=== PATIENT | male | born 1965 | race Caucasian/White ===

== ENCOUNTER → 2016-08-22 | Outpatient (CLI) | payer OTHER ==
[~2016-08-22] MED LIST: ACET500C OR; AMIT10TA2 OR; ATEN50TA2 OR; DICL100T6 PO; FLEXERIL; FLEXERIL OR; HYDR-3713 PO; HYDR-3716 PO; HYDR-3719 PO; HYDR10TA16 PO; HYDR12.56 PO; IBUP200C PO; IBUP600T26 PO; KENOLOG; LOVA20TA2 PO; LYRI150C; LYRI150C OR; LYRI200C; LYRI200C OR; METH75TA PO; MULTCAP PO; NEXI20CA OR; NEXI40CA PO; OMEG100011 PO; PERC5TAB8 PO; PERC7.5T12 PO; PRED5TAB; PRED5TAB OR; PRED5TAB PO; TOPI25TA2 OR; TRAM100T OR; VICO5TAB; VICO5TAB OR; VICO5TAB PO; VITA100072 PO; VITA100T; VITAD1000T PO; VITATAB11 PO; VOLT1GEL2 TD; [UNRECOGNIZED DRUG - CODE] OR; [UNRECOGNIZED DRUG - OTHER] EXT; [UNRECOGNIZED DRUG - OTHER] PO; crestor PO; mobic; tumeric PO; vitamin d PO
--- NOTE | 2016-09-11 02:09 | ECWPNPC ---
PATIENT NAME: CAMILO WHIPPLE : 1965 GENDER: MALE VISIT DATE: 08/22/2016 DISCHARGE DATE: 08/22/16 1052 VISIT LOCKED DATE TIME: PHYSICIAN: SUNDAR BURKS RESOURCE: SUNDAR BURKS REASON FOR APPOINTMENT 1. WC NECK, SHOULDER, BACK HISTORY OF PRESENT ILLNESS HISTORY OF PRESENT ILLNESS: PAIN THE PATIENT DESCRIBES THE PAIN... FALL RISK SCREENING: SCREENING :NO FALLS IN THE PAST YEAR TODAY'S VISIT: NOTES: WC FOLLOWUP VISIT FOR THORACIC , NECK, LEG. RATES PAIN TODAY 8/10. HAS BEEN HAVING INCREASED LEFT THOACIC AND RIB PRESSURE FOR 2 WEEKS. IS NOW HAVING PAIN ACROSS TO THE LEFT SIDE. THERE WERE NO INSTIGATING FACTORS EXCEPT WITH TWISTING TO COMPLETE BATHROOM ACTIVITIES. . CURRENT MEDICATIONS TAKING ATENOLOL 50 MG TABLET 1 TABLET ORALLY BID TAKING TURMERIC 1 CAPSULE 1 CAP ORALLY DAILY TAKING LYRICA 100 MG CAPSULE 1 CAPSULE ORALLY TWICE A DAY MDD=2 TAKING DICLOFENAC SODIUM 75 MG TABLET DELAYED RELEASE 1 TABLET WITH FOOD OR MILK ORALLY TWICE A DAY TAKING BIOFREEZE 0.2-3.5 % GEL EXTERNALLY TAKING AMITRIPTYLINE HCL 10 MG TABLET 2 TABLET AT BEDTIME ORALLY BEFORE BEDTIME TAKING OXYCODONE HCL 5 MG TABLET 1 TABLET ORALLY EVERY 8 HRS PRN PAIN MDD=3 WORKERS COMP TAKING VITAMIN B COMPLEX 1 TABLET 1 TAB(S) ORALLY DAILY TAKING VITAMIN D 1000 UNIT TABLET 1 TABLET ORALLY ONCE A DAY NOT-TAKING DICLOFENAC SODIUM ER 75 MG TABLET EXTENDED RELEASE 24 HOUR 1 TABLET ORALLY BID WITH FOOD WORKERS COMP NOT-TAKING LOVASTATIN 20 MG TABLET 1 TABLET WITH A MEAL ORALLY ONCE A DAY MEDICATION LIST REVIEWED AND RECONCILED WITH THE PATIENT PAST MEDICAL HISTORY HTN HIGH CHOLESTEROL (BORDELINE) GERD POSSIBLE SLEEP APNEA ALLERGIES BACLOFEN: RASH, WHEEZING: ALLERGY BEE VENOM: ANAPHYLAXIS: ALLERGY PENICILLIN (FOR ALLERGIES USE ONLY): ANAPHYLAXIS: ALLERGY HYDROCHLOROTHIAZIDE: MIGRAINE: ALLERGY TYLENOL: DYSPNEA, SWELLING: ALLERGY SOCIAL HISTORY GENERAL: TOBACCO USE ARE YOU A:NONSMOKER 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 NEW PATIENT PAIN DIARY TODAY'S VISITNOTES FROM 0-10, WHAT LEVEL IS YOUR PAIN TODAY?0 PAIN CLINIC PFS, CLERGY, PUBLIC HEALTH REFERRALS PFS REFERRAL NEEDED?NO CLERGY REFERRAL NEEDED?NO PUBLIC HEALTH REFERRAL NEEDED?NO WAS THE PROVIDER NOTIFIED OF ANY PERTINENT INFO?NO PFS REFERRAL NEEDED?NO CLERGY REFERRAL NEEDED?NO PUBLIC HEALTH REFERRAL NEEDED?NO WAS THE PROVIDER NOTIFIED OF ANY PERTINENT INFO?NO REVIEW OF SYSTEMS CONSTITUTIONAL: ANY CHANGE IN YOUR MEDICAL CONDITION? NO . CHILLS NO . FEVER NO . INFECTION: DO YOU HAVE NEW INFECTIONS? NO . DO YOU HAVE HISTORY OF MRSA? NO . MUSCULOSKELETAL: ANY NEW PATTERNS OF PAIN OR NUMBNESS? YES PT NOTES NEW RIGHT POSTERIOR RIB DISCOMFORT X 2 WKS. ALSO NOTES &QUOT;MUSCLES ALONG MY SPINE FEEL WEAK LIKE THEY ARE WORKING HARDER TO SUPPORT MY BACK&QUOT;. . GASTROENTEROLOGY: ANY NEW CHANGE IN BOWEL CONTROL? NO . GENITOURINARY: ANY NEW CHANGE IN BLADDER CONTROL? NO . IS THERE A CHANCE YOU COULD BE ? NO . HEMATOLOGY/LYMPH: DO YOU TAKE ANY BLOOD THINNERS? (FOR EXAMPLE- COUMADIN, PLAVIX, AGGRENOX, PLATEL, PRADAXA, OR XARELTO) NO . WHEN WAS YOUR LAST DOSE? DATE: TIME: . NEUROLOGY: HAVE YOU FALLEN IN THE PAST 6 MONTHS? NO . ANY NEW EXTREMITY NUMBNESS OR WEAKNESS? NO . CARDIOLOGY: DO YOU HAVE A PACEMAKER OR DEFIBRILLATOR? NO . RESPIRATORY: HAVE YOU BEEN SICK IN THE PAST WEEK? NO . FEVER NO . FLU LIKE SYMPTOMS? NO . COUGH NO . INTEGUMENTARY: DO YOU HAVE ANY RASHES OR OPEN SORES? NO . ALLERGIC/IMMUNO: ARE YOU ALLERGIC TO SHELLFISH OR IV DYE? NO . ANY NEW ALLERGIES? NO . PSYCHIATRIC: DO YOU HAVE THOUGHTS OF HURTING YOURSELF OR SOMEONE ELSE? NO . ARE YOU ABUSED, NEGLECTED, OR IN AN UNSAFE ENVIRONMENT? NO . ENDOCRINOLOGY: ARE YOU DIABETIC? NO . OTHER: DO YOU NEED ANY PRESCRIPTIONS? YES OXYCODONE/DICLOFENAC . IF YES, PLEASE LIST: ____ . ANY NEW PROBLEMS WITH YOUR MEDICATIONS? NO . WHEN DID YOU LAST EAT? ____ . WHEN DID YOU LAST DRINK? ____ . WHAT DID YOU LAST DRINK? ____ . NAME OF PERSON DRIVING YOU HOME? ____ . DO YOU HAVE ANY OTHER QUESTIONS OR CONCERNS NO . REVIEWED BY: PROVIDER: SUNDAR HERZOGP . VITAL SIGNS WT 340 LBS, HT 68 IN, BMI 51.69 INDEX, BP 139/87 MM HG, HR 67 /MIN, RR 18 /MIN, TEMP 96.5 F, OXYGEN SAT % 96%, NA INITIALS SC 09:42, REVIEWED BY: MLF. EXAMINATION GENERAL EXAMINATION: PSYCHALERT , ORIENTED X 3 , APPROPRIATE MOOD AND AFFECT . LUNGS:CLEAR TO AUSCULTATION BILATERALLY, NO WHEEZES, RALES OR RHONCHI. HEART:HEART RATE REGULAR. MUSCULOSKELETAL: POINT TENDERNESS OVER ACROMIOCLAVICULAR AND STERNOCLAVICULAR JOINTS. TRIGGER POINTS:, ELICITED WITH PALPATION OVER CERVICAL SPINOUS PROCESSES AND ACROSS THE TRAPEZIUS MUSCLES BILATERALLY. RESTRICTION OF ROM IS NOTED. LEFT TRAPEZIUS > RIGHT. TIGHTNESS IN LEFT CALF AND BOTH CALVES TENDER TO PALPATION.TENDERNESS WITH PALPATION OVER LUMBAR SPINOUS PROCESSES AND AT LEFT SACRALILIAC JOINT. 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 CONTINUE CURRRENT MEDS ,TRIGGER POINT INJECTION: YOUR EXPERIENCE MATERIAL WAS PRINTED. PROCEDURES PN WORKMANS' COMP OPINION IN YOUR OPINION, WAS THE INCIDENT THAT THE PATIENT DESCRIBED THE COMPETENT MEDICAL CAUSE OF THIS INJURY/ILLNESS? YES ARE THE PATIENT'S COMPLAINTS CONSISTENT WITH HIS/HER HISTORY OF THE INJURY/ILLNESS? YES IS THE PATIENT'S HISTORY OF THE INJURY/ILLNESS CONSISTENT WITH YOUR OBJECTIVE FINDING? YES WHAT IS THE PERCENTAGE OF TEMPORARY IMPAIRMENT? MARKED = 75% IS THE PATIENT WORKING? NO DOCTOR ON SITE: NATHAN EASLEY MD PROCEDURE CODES FA211 ESTABILISHED PATIENT [facility] FACILITY CHARGE DISPOSITION & COMMUNICATION FOLLOW UP 6 WEEKS MED MANAGEMENT WC (REASON: WC AUTH FOR THORACIC TPI LEFT) ELECTRONICALLY SIGNED BY TAMMI SCHOFIELD ON 09/10/2016 AT 11:48 AM EST DISCLAIMER : THIS IS A VISIT SUMMARY EXTRACTED FROM THE [employer] CHART. IT IS NOT A COPY OF THE [employer] PROGRESS NOTE. MTDD
== END ==
LOC: M PAIN 09:40
PROVIDERS: ATTEND Nurse Practitioner Family
DX: G54.0 Brachial plexus disorders (principal); M79.1 Myalgia; Z79.891 Long term (current) use of opiate analgesic; Z79.899 Other long term (current) drug therapy; I10 Essential (primary) hypertension; Z88.0 Allergy status to penicillin; Z88.1 Allergy status to other antibiotic agents; Z88.8 Allergy status to other drugs, medicaments and biological substances; Z88.6 Allergy status to analgesic agent

== ENCOUNTER → 2016-10-10 | Outpatient (CLI) | payer OTHER ==
--- NOTE | 2016-10-21 02:15 | ECWPNPC ---
PATIENT NAME: CAMILO WHIPPLE : 1965 GENDER: MALE VISIT DATE: 10/10/2016 DISCHARGE DATE: 10/10/16 0936 VISIT LOCKED DATE TIME: PHYSICIAN: SUNDAR BURKS RESOURCE: SUNDAR BURKS REASON FOR APPOINTMENT 1. W/C BACK HISTORY OF PRESENT ILLNESS HISTORY OF PRESENT ILLNESS: PAIN THE PATIENT DESCRIBES THE PAIN... FALL RISK SCREENING: SCREENING :NO FALLS IN THE PAST YEAR TODAY'S VISIT: NOTES: WC FOLLOWUP FOR THORACIC AND LOW BACK PAIN. RATES PAIN TODAY 7/10. DESCRIBES PAIN CONSTANT, ACHINGTENDER, SORE AND SENSE OF PRRESSURE UNDER LEFT RIBS. PAIN TODAY IS CENTERD IN BACK. PAIN HAS BEEN AWAKENING AT NIGHT - SLEEP DISRUPTED SECONDARY TO THORACIC PRESSURE AND LOW BACK PAIN. STATES MEDS ARE HELPFUL BUT HAS BEEN TRYING TO TAKE LESS OF THE PERCOCET.. CURRENT MEDICATIONS TAKING ATENOLOL 50 MG TABLET 1 TABLET ORALLY BID TAKING TURMERIC 1 CAPSULE 1 CAP ORALLY DAILY TAKING LYRICA 100 MG CAPSULE 1 CAPSULE ORALLY TWICE A DAY MDD=2 TAKING BIOFREEZE 0.2-3.5 % GEL EXTERNALLY TAKING AMITRIPTYLINE HCL 10 MG TABLET 2 TABLET AT BEDTIME ORALLY BEFORE BEDTIME TAKING VITAMIN B COMPLEX 1 TABLET 1 TAB(S) ORALLY DAILY TAKING VITAMIN D 1000 UNIT TABLET 1 TABLET ORALLY ONCE A DAY TAKING DICLOFENAC SODIUM 75 MG TABLET DELAYED RELEASE 1 TABLET WITH FOOD OR MILK ORALLY TWICE A DAY TAKING OXYCODONE HCL 5 MG TABLET 1 TABLET ORALLY EVERY 8 HRS PRN PAIN MDD=3 WORKERS COMP NOT-TAKING DICLOFENAC SODIUM ER 75 MG TABLET EXTENDED RELEASE 24 HOUR 1 TABLET ORALLY BID WITH FOOD WORKERS COMP NOT-TAKING LOVASTATIN 20 MG TABLET 1 TABLET WITH A MEAL ORALLY ONCE A DAY MEDICATION LIST REVIEWED AND RECONCILED WITH THE PATIENT PAST MEDICAL HISTORY HTN HIGH CHOLESTEROL (BORDELINE) GERD POSSIBLE SLEEP APNEA ALLERGIES BACLOFEN: RASH, WHEEZING: ALLERGY BEE VENOM: ANAPHYLAXIS: ALLERGY PENICILLIN (FOR ALLERGIES USE ONLY): ANAPHYLAXIS: ALLERGY HYDROCHLOROTHIAZIDE: MIGRAINE: ALLERGY TYLENOL: DYSPNEA, SWELLING: ALLERGY REVIEW OF SYSTEMS CONSTITUTIONAL: ANY CHANGE IN YOUR MEDICAL CONDITION? NO . CHILLS NO . FEVER NO . INFECTION: DO YOU HAVE NEW INFECTIONS? NO . DO YOU HAVE HISTORY OF MRSA? NO . MUSCULOSKELETAL: ANY NEW PATTERNS OF PAIN OR NUMBNESS? NO . GASTROENTEROLOGY: ANY NEW CHANGE IN BOWEL CONTROL? NO . GENITOURINARY: ANY NEW CHANGE IN BLADDER CONTROL? NO . IS THERE A CHANCE YOU COULD BE ? NO . HEMATOLOGY/LYMPH: DO YOU TAKE ANY BLOOD THINNERS? (FOR EXAMPLE- COUMADIN, PLAVIX, AGGRENOX, PLATEL, PRADAXA, OR XARELTO) NO . WHEN WAS YOUR LAST DOSE? DATE: TIME: . NEUROLOGY: HAVE YOU FALLEN IN THE PAST 6 MONTHS? NO . ANY NEW EXTREMITY NUMBNESS OR WEAKNESS? NO . CARDIOLOGY: DO YOU HAVE A PACEMAKER OR DEFIBRILLATOR? NO . RESPIRATORY: HAVE YOU BEEN SICK IN THE PAST WEEK? NO . FEVER NO . FLU LIKE SYMPTOMS? NO . COUGH NO . INTEGUMENTARY: DO YOU HAVE ANY RASHES OR OPEN SORES? NO . ALLERGIC/IMMUNO: ARE YOU ALLERGIC TO SHELLFISH OR IV DYE? NO . ANY NEW ALLERGIES? NO . PSYCHIATRIC: DO YOU HAVE THOUGHTS OF HURTING YOURSELF OR SOMEONE ELSE? NO . ARE YOU ABUSED, NEGLECTED, OR IN AN UNSAFE ENVIRONMENT? NO . ENDOCRINOLOGY: ARE YOU DIABETIC? NO . OTHER: DO YOU NEED ANY PRESCRIPTIONS? NO . IF YES, PLEASE LIST: ____ . ANY NEW PROBLEMS WITH YOUR MEDICATIONS? NO . WHEN DID YOU LAST EAT? ____ . WHEN DID YOU LAST DRINK? ____ . WHAT DID YOU LAST DRINK? ____ . NAME OF PERSON DRIVING YOU HOME? ____ . DO YOU HAVE ANY OTHER QUESTIONS OR CONCERNS NO . REVIEWED BY: PROVIDER: SUNDAR WOMACK . VITAL SIGNS WT 316.8 LBS, HT 68 IN, BMI 48.16 INDEX, BP 133/83 MM HG, HR 81 /MIN, RR 18 /MIN, TEMP 97.9 F, OXYGEN SAT % 96, NA INITIALS TL 0857, REVIEWED BY: KG. EXAMINATION GENERAL EXAMINATION: PSYCHALERT , ORIENTED X 3 , APPROPRIATE MOOD AND AFFECT . LUNGS:CLEAR TO AUSCULTATION BILATERALLY, NO WHEEZES, RALES OR RHONCHI. HEART:HEART RATE REGULAR. MUSCULOSKELETAL:POINT TENDERNESS OVER ACROMIOCLAVICULAR AND STERNOCLAVICULAR JOINTS. TRIGGER POINTS AND TIGHT FIBROUS BANDS NOTED WITH PALPATION OVER CERVICAL SPINOUS PROCESSES AND ACROSS THE TRAPEZIUS MUSCLES BILATERALLY, LEFT GREATER THAN RIGHT. RESTRICTION OF ROM IS NOTED. LEFT TRAPEZIUS > RIGHT. TIGHTNESS IN LEFT CALF AND BOTH CALVES TENDER TO PALPATION. POINT TENDERNESS WITH PALPATION OVER LUMBAR SPINOUS PROCESSES AND AT LEFT SACRALILIAC JOINT. 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 CLINICAL NOTES: ISTOP REGISTRY REVIEWED AND DEMNOSTRATES COMPLLIANCE. BRINGS IN MEDICATIONS WHICH IS APPROPRIATE FOR WHAT WAS DISPENSED. RECENT URINE TOXICOLOGY REVIEWED. NO UNAUTHORIZED MEDICATIONS. NO ILLICIT SUBSTANCES AND PRESCRIBED MEDICATIONS WERE PRESENT. PROCEDURES PN WORKMANS' COMP OPINION IN YOUR OPINION, WAS THE INCIDENT THAT THE PATIENT DESCRIBED THE COMPETENT MEDICAL CAUSE OF THIS INJURY/ILLNESS? YES ARE THE PATIENT'S COMPLAINTS CONSISTENT WITH HIS/HER HISTORY OF THE INJURY/ILLNESS? YES IS THE PATIENT'S HISTORY OF THE INJURY/ILLNESS CONSISTENT WITH YOUR OBJECTIVE FINDING? YES WHAT IS THE PERCENTAGE OF TEMPORARY IMPAIRMENT? MARKED = 75% IS THE PATIENT WORKING? NO DOCTOR ON SITE: NATHAN EASLEY MD PROCEDURE CODES FA211 ESTABILISHED PATIENT [facility] FACILITY CHARGE DISPOSITION & COMMUNICATION FOLLOW UP FOLLOW UP WITH DR ORELLANA 3-4 WEEKS (REASON: WC THORACIC, LOW BACK) ELECTRONICALLY SIGNED BY TAMMI SCHOFIELD ON 10/20/2016 AT 07:16 PM EDT DISCLAIMER : THIS IS A VISIT SUMMARY EXTRACTED FROM THE [employer] CHART. IT IS NOT A COPY OF THE [employer] PROGRESS NOTE. LISA
== END ==
LOC: M PAIN 09:00
PROVIDERS: ATTEND Nurse Practitioner Family
DX: Z09 Encounter for follow-up examination after completed treatment for conditions other than malignant neoplasm (principal); G89.29 Other chronic pain; M54.12 Radiculopathy, cervical region; M79.1 Myalgia; I10 Essential (primary) hypertension; E78.00 Pure hypercholesterolemia, unspecified; K21.9 Gastro-esophageal reflux disease without esophagitis; Z88.1 Allergy status to other antibiotic agents; Z91.030 Bee allergy status; Z88.0 Allergy status to penicillin; Z88.8 Allergy status to other drugs, medicaments and biological substances; Z79.891 Long term (current) use of opiate analgesic; Z79.899 Other long term (current) drug therapy

== ENCOUNTER → 2016-11-13 | Outpatient (CLI) | payer OTHER ==
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
== END ==
LOC: M PAIN 15:00
PROVIDERS: ATTEND Anesthesiology
DX: G89.29 Other chronic pain (principal); M51.16 Intervertebral disc disorders with radiculopathy, lumbar region; M51.17 Intervertebral disc disorders with radiculopathy, lumbosacral region; I10 Essential (primary) hypertension; E78.00 Pure hypercholesterolemia, unspecified; K21.9 Gastro-esophageal reflux disease without esophagitis; G47.30 Sleep apnea, unspecified; Z88.8 Allergy status to other drugs, medicaments and biological substances; Z91.030 Bee allergy status; Z88.0 Allergy status to penicillin; Z79.891 Long term (current) use of opiate analgesic; Z79.899 Other long term (current) drug therapy

== ENCOUNTER → 2016-12-12 | Outpatient (CLI) | payer OTHER ==
--- NOTE | 2016-12-24 02:32 | ECWPNPC ---
PATIENT NAME: CAMILO WHIPPLE : 1965 GENDER: MALE VISIT DATE: 12/12/2016 DISCHARGE DATE: 12/12/16 1423 VISIT LOCKED DATE TIME: PHYSICIAN: NATHAN ORELLANA RESOURCE: NATHAN ORELLANA REASON FOR APPOINTMENT 1. W/C WHOLE BACK HISTORY OF PRESENT ILLNESS HISTORY OF PRESENT ILLNESS: PAIN THE PATIENT DESCRIBES THE PAIN... 50 YEAR OLD MALE PATIENT WITH HISTORY OF CHRONIC NECK, MID-BACK, AND LOW BACK PAIN. PATIENT DESCRIBES THE PAIN ACHING, TENDER, SORE, AND HAVING IT ALL THE TIME WITH A PAIN SCORE OF 6/10 ON TODAY'S VISIT. PATIENT WAS INJURED IN A WORK RELATED INJURY. PATIENT WAS WORKING IN THE [employer] OVER THE COURSE OF MANY YEARS, DUE TO THE TRAUMA ON HE WAS TAKEN OUT OF WORK. PATIENT STATES THAT IN 2001 HE HAD TWO BACK SURGERIES ONE IN JANUARY AND THE OTHER IN JUNE. PATIENT STATES THAT HE HAS TRIED PT IN THE PAST WITH NO IMPROVEMENT. PATIENT STATES THAT HIS LOW BACK HURT THE MOST TODAY. PATIENT STATES THAT HE HAS RADIATING PAIN DOWN THE BACK OF HIS LEFT LEG FROM HIS BACK. PATIENT DENIES UNEXPLAINABLE WEIGHT LOSS, FEVER, CHILLS, NEW CHANGES ON HIS URINARY OR BOWEL CONTROL. FALL RISK SCREENING: SCREENING :NO FALLS IN THE PAST YEAR CURRENT MEDICATIONS TAKING OXYCODONE HCL 5 MG TABLET 1 TABLET ORALLY EVERY 8 HRS PRN PAIN MDD=3 WORKERS COMP TAKING LYRICA 100 MG CAPSULE 1 CAPSULE ORALLY TWICE A DAY MDD=2 TAKING ATENOLOL 50 MG TABLET 1 TABLET ORALLY BID TAKING TURMERIC 1 CAPSULE 1 CAP ORALLY DAILY TAKING BIOFREEZE 0.2-3.5 % GEL EXTERNALLY TAKING AMITRIPTYLINE HCL 10 MG TABLET 2 TABLET AT BEDTIME ORALLY BEFORE BEDTIME TAKING VITAMIN B COMPLEX 1 TABLET 1 TAB(S) ORALLY DAILY TAKING DICLOFENAC SODIUM 75 MG TABLET DELAYED RELEASE 1 TABLET WITH FOOD OR MILK ORALLY TWICE A DAY, NOTES: WEANING HIMSELF OFF TOOK 1 TAB YEST. 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 NEW PATIENT PAIN DIARY TODAY'S VISITNOTES FROM 0-10, WHAT LEVEL IS YOUR PAIN TODAY?0 PAIN CLINIC PFS, CLERGY, PUBLIC HEALTH REFERRALS PFS REFERRAL NEEDED?NO CLERGY REFERRAL NEEDED?NO PUBLIC HEALTH REFERRAL NEEDED?NO WAS THE PROVIDER NOTIFIED OF ANY PERTINENT INFO?NO PFS REFERRAL NEEDED?NO CLERGY REFERRAL NEEDED?NO PUBLIC HEALTH REFERRAL NEEDED?NO WAS THE PROVIDER NOTIFIED OF ANY PERTINENT INFO?NO ADVANCED DIRECTIVES HEALTH CARE PROXY?YES NAME OF HCP ROXANNE WHIPPLE CONTACT # FOR HCP [phone] DO YOU HAVE A COPY WITH YOU? NO DO YOU HAVE A DNR?NO WOULD YOU LIKE MORE INFORMATION?NO LIVING WILL?NO WOULD YOU LIKE MORE INFORMATION?NO POWER OF BUNDLE WRAPPER?NO WOULD YOU LIKE MORE INFORMATION?NO HOSPITALIZATION/MAJOR DIAGNOSTIC PROCEDURE SURGERIES INFECTION 1998 REVIEW OF SYSTEMS CONSTITUTIONAL: ANY CHANGE IN YOUR MEDICAL CONDITION? NO . CHILLS NO . FEVER NO . INFECTION: DO YOU HAVE NEW INFECTIONS? NO . DO YOU HAVE HISTORY OF MRSA? NO . MUSCULOSKELETAL: ANY NEW PATTERNS OF PAIN OR NUMBNESS? NO . GASTROENTEROLOGY: ANY NEW CHANGE IN BOWEL CONTROL? NO . GENITOURINARY: ANY NEW CHANGE IN BLADDER CONTROL? NO . IS THERE A CHANCE YOU COULD BE ? NO . HEMATOLOGY/LYMPH: DO YOU TAKE ANY BLOOD THINNERS? (FOR EXAMPLE- COUMADIN, PLAVIX, AGGRENOX, PLATEL, PRADAXA, OR XARELTO) NO . WHEN WAS YOUR LAST DOSE? DATE: TIME: . NEUROLOGY: HAVE YOU FALLEN IN THE PAST 6 MONTHS? NO . ANY NEW EXTREMITY NUMBNESS OR WEAKNESS? NO . CARDIOLOGY: DO YOU HAVE A PACEMAKER OR DEFIBRILLATOR? NO . RESPIRATORY: HAVE YOU BEEN SICK IN THE PAST WEEK? NO . FEVER NO . FLU LIKE SYMPTOMS? NO . COUGH NO . INTEGUMENTARY: DO YOU HAVE ANY RASHES OR OPEN SORES? NO . ALLERGIC/IMMUNO: ARE YOU ALLERGIC TO SHELLFISH OR IV DYE? NO . ANY NEW ALLERGIES? NO . PSYCHIATRIC: DO YOU HAVE THOUGHTS OF HURTING YOURSELF OR SOMEONE ELSE? NO . ARE YOU ABUSED, NEGLECTED, OR IN AN UNSAFE ENVIRONMENT? NO . ENDOCRINOLOGY: ARE YOU DIABETIC? NO . OTHER: DO YOU NEED ANY PRESCRIPTIONS? YES . IF YES, PLEASE LIST: OXYCOCONE . ANY NEW PROBLEMS WITH YOUR MEDICATIONS? NO . WHEN DID YOU LAST EAT? ____ . WHEN DID YOU LAST DRINK? ____ . WHAT DID YOU LAST DRINK? ____ . NAME OF PERSON DRIVING YOU HOME? ____ . DO YOU HAVE ANY OTHER QUESTIONS OR CONCERNS NO . REVIEWED BY: PROVIDER: NATHAN ORELLANA MD . VITAL SIGNS WT 327 LBS, HT 68 IN, BMI 49.71 INDEX, BP 134/79 MM HG, HR 73 /MIN, RR 18 /MIN, TEMP 98.1 F, OXYGEN SAT % 95%, NA INITIALS SC 13:02, REVIEWED BY: AD. EXAMINATION : PATIENT IS ALERT O X 3 AND COOPERATIVE. THERE IS TENDERNESS IN THE LOW BACK PARASPINAL MUSCLE GROUP. PATIENT AMBULATES WITH A LIMP ON THE LEFT LEG AND HAS AN ANTALGIC GAIT. PATIENT IS ABLE TO FLEX HIS BACK TO 35 DEGREES AND EXTEND TO 5 DEGREES WITH DISCOMFORT. STRAIGHT LEG RAISING IS POSITIVE FOR PAIN ON THE LEFT LEG AT 30 DEGREES. MRI OF THE LUMBAR SPINE DONE ON 09-19-2013 SHOWS BULGING DISC AT MULTIPLE LEVELS. ASSESSMENTS INTERVERTEBRAL DISC DISORDERS WITH RADICULOPATHY, LUMBAR REGION - M51.16 INTERVERTEBRAL DISC DISORDERS WITH RADICULOPATHY, LUMBOSACRAL REGION - M51.17 TREATMENT OTHERS REFILL OXYCODONE HCL TABLET, 5 MG, 1 TABLET, ORALLY, EVERY 8 HRS PRN PAIN MDD=3 WORKERS COMP, 30 DAYS, 90, REFILLS 0 REFILL LYRICA CAPSULE, 100 MG, 1 CAPSULE, ORALLY, TWICE A DAY MDD=2, 30 DAY(S), 60, REFILLS 0 REFILL AMITRIPTYLINE HCL TABLET, 10 MG, 2 TABLET AT BEDTIME, ORALLY, BEFORE BEDTIME, 30 DAY(S), 60, REFILLS 5 NOTES: WE DISCUSSED SEVERAL ISSUES ABOUT MR. WHIPPLE'S PAIN MANAGEMENT CASE. AT THIS TIME I WILL REFILL OXYCODONE AND LYRICA FOR THE PATIENT TODAY. PATIENT IS TAKING OXYCODONE FOR SOMATIC PAIN; AMITRIPTYLINE AND LYRICA FOR NEUROPATHIC PAIN. I DISCUSSED WITH THE PATIENT WE HAVE NOT HEARD BACK YET FROM HIS COMP CARRIER REGARDING ABOUT THE REQUEST FOR CT OF THE CERVICAL AND THORACIC SPINE. AFTER EXAMINING THE PATIENT AND REVIEWING THE MRI OF THE LUMBAR SPINE, PATIENT IS A GOOD CANDIDATE FOR A L5-S1 LUMBAR EPIDURAL, WE DISCUSSED THE RISK, BENEFITS, AND ALTERNATIVES AND THE PATIENT WOULD LIKE TO PROCEED. PATIENT WILL BE BOOKED PENDING APPROVAL. UTOX DONE ON 04/22/2016 SHOWS CONSISTENT RESULTS. I WILL ORDER A UTOX TODAY. PATIENT WILL FOLLOW UP WITH ME IN 7 WEEKS. INSTRUCTIONS WERE GIVEN, QUESTIONS WERE ANSWERED, PATIENT REPORTS UNDERSTANDING AND AGREES WITH THE PLAN. I, TAO LEE, DOCUMENTED THE ABOVE INFORMATION ACTING A SCRIBE FOR DR. ORELLANA. I HAVE REVIEWED THE ABOVE DOCUMENT, WRITTEN BY TAO LEE SCRIBE AND I VERIFY THAT IT IS ACCURATE. PROCEDURES PN WORKMANS' COMP OPINION IN YOUR OPINION, WAS THE INCIDENT THAT THE PATIENT DESCRIBED THE COMPETENT MEDICAL CAUSE OF THIS INJURY/ILLNESS? YES ARE THE PATIENT'S COMPLAINTS CONSISTENT WITH HIS/HER HISTORY OF THE INJURY/ILLNESS? YES IS THE PATIENT'S HISTORY OF THE INJURY/ILLNESS CONSISTENT WITH YOUR OBJECTIVE FINDING? YES WHAT IS THE PERCENTAGE OF TEMPORARY IMPAIRMENT? MARKED = 75% IS THE PATIENT WORKING? NO DOCTOR ON SITE: NATHAN EASLEY MD PROCEDURE CODES FA211 ESTABILISHED PATIENT [facility] FACILITY CHARGE G8730 PAIN ASSESS POS TOOL F/U PLAN DOC G8427 DOC MEDS VERIFIED W/PT OR RE DISPOSITION & COMMUNICATION FOLLOW UP 7 WEEKS ELECTRONICALLY SIGNED BY NATHAN ORELLANA MD ON 12/23/2016 AT 08:15 PM EDT DISCLAIMER : THIS IS A VISIT SUMMARY EXTRACTED FROM THE [employer] CHART. IT IS NOT A COPY OF THE [employer] PROGRESS NOTE. LISA
== END ==
LOC: M PAIN 13:00
PROVIDERS: ATTEND Anesthesiology
DX: G89.29 Other chronic pain (principal); M51.16 Intervertebral disc disorders with radiculopathy, lumbar region; M51.17 Intervertebral disc disorders with radiculopathy, lumbosacral region; I10 Essential (primary) hypertension; E78.00 Pure hypercholesterolemia, unspecified; K21.9 Gastro-esophageal reflux disease without esophagitis; G47.30 Sleep apnea, unspecified; Z91.030 Bee allergy status; Z88.0 Allergy status to penicillin; Z88.8 Allergy status to other drugs, medicaments and biological substances; Z88.6 Allergy status to analgesic agent; Z79.891 Long term (current) use of opiate analgesic; Z79.899 Other long term (current) drug therapy

== ENCOUNTER → 2017-01-28 | Outpatient (CLI) | payer OTHER ==
--- NOTE | 2017-02-10 02:44 | ECWPNPC ---
PATIENT NAME: CAMILO WHIPPLE : 1965 GENDER: MALE VISIT DATE: 01/28/2017 DISCHARGE DATE: 01/28/17 1005 VISIT LOCKED DATE TIME: PHYSICIAN: NATHAN ORELLANA RESOURCE: NATHAN ORELLANA REASON FOR APPOINTMENT 1. W/C WHOLE BACK HISTORY OF PRESENT ILLNESS HISTORY OF PRESENT ILLNESS: PAIN THE PATIENT DESCRIBES THE PAIN... 50 YEAR OLD MALE PATIENT WITH HISTORY OF CHRONIC NECK, MID-BACK, AND LOW BACK PAIN. PATIENT DESCRIBES THE PAIN ACHING, TENDER, SORE, AND HAVING IT ALL THE TIME WITH A PAIN SCORE OF 6/10 ON TODAY'S VISIT. PATIENT WAS INJURED IN A WORK RELATED INJURY. PATIENT WAS WORKING IN THE [employer] OVER THE COURSE OF MANY YEARS, DUE TO THE TRAUMA ON 01/08/2000 HE WAS TAKEN OUT OF WORK. PATIENT STATES THAT IN 2001 HE HAD TWO BACK SURGERIES ONE IN JANUARY AND THE OTHER IN JUNE. PATIENT STATES THAT HE HAS TRIED PHYSICAL THERAPY IN THE PAST WITH NO IMPROVEMENT. PATIENT STATES THAT HIS LOW BACK HURT THE MOST TODAY. PATIENT STATES THAT HE HAS RADIATING PAIN DOWN THE BACK OF HIS LEFT LEG FROM HIS BACK. PATIENT IS CURRENTLY USING LYRICA AND OXYCODONE AND STATES THAT THE MEDICATION KEEPS HIM MOBILE AND FUNCTIONAL. PATIENT DENIES UNEXPLAINABLE WEIGHT LOSS, FEVER, CHILLS, NEW CHANGES ON HIS URINARY OR BOWEL CONTROL. FALL RISK SCREENING: SCREENING :NO FALLS IN THE PAST YEAR CURRENT MEDICATIONS TAKING AMITRIPTYLINE HCL 10 MG TABLET 2 TABLET AT BEDTIME ORALLY BEFORE BEDTIME TAKING ATENOLOL 50 MG TABLET 1 TABLET ORALLY BID TAKING TURMERIC 1 CAPSULE 1 CAP ORALLY DAILY TAKING BIOFREEZE 0.2-3.5 % GEL EXTERNALLY TAKING VITAMIN B COMPLEX 1 TABLET 1 TAB(S) ORALLY DAILY TAKING OXYCODONE HCL 5 MG TABLET 1 TABLET ORALLY EVERY 8 HRS PRN PAIN MDD=3 WORKERS COMP TAKING LYRICA 100 MG CAPSULE 1 CAPSULE ORALLY TWICE A DAY MDD=2 NOT-TAKING VITAMIN D 1000 UNIT TABLET 1 TABLET ORALLY EVERY OTHER DAY, NOTES: ONLY TAKES DURING THE WINTER NOT-TAKING DICLOFENAC SODIUM ER 75 MG TABLET EXTENDED RELEASE 24 HOUR 1 TABLET ORALLY BID WITH FOOD WORKERS COMP NOT-TAKING LOVASTATIN 20 MG TABLET 1 TABLET WITH A MEAL ORALLY ONCE A DAY DISCONTINUED DICLOFENAC SODIUM 75 MG TABLET DELAYED RELEASE 1 TABLET WITH FOOD OR MILK ORALLY TWICE A DAY, NOTES: . 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 SOCIAL HISTORY GENERAL: TOBACCO USE ARE YOU A:NONSMOKER ALCOHOL SCREENING DID YOU HAVE A DRINK CONTAINING ALCOHOL IN THE PAST YEAR?NO POINTS0 INTERPRETATIONNEGATIVE MUSLIM [id number] 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 NEW PATIENT PAIN DIARY TODAY'S VISITNOTES FROM 0-10, WHAT LEVEL IS YOUR PAIN TODAY?0 PAIN CLINIC PFS, CLERGY, PUBLIC HEALTH REFERRALS PFS REFERRAL NEEDED?NO CLERGY REFERRAL NEEDED?NO PUBLIC HEALTH REFERRAL NEEDED?NO WAS THE PROVIDER NOTIFIED OF ANY PERTINENT INFO?NO PFS REFERRAL NEEDED?NO CLERGY REFERRAL NEEDED?NO PUBLIC HEALTH REFERRAL NEEDED?NO WAS THE PROVIDER NOTIFIED OF ANY PERTINENT INFO?NO ADVANCE DIRECTIVES HEALTH CARE PROXY?YES NAME OF HCP ROXANNE WHIPPLE CONTACT # FOR HCP [phone] DO YOU HAVE A COPY WITH YOU? NO DO YOU HAVE A DNR?NO WOULD YOU LIKE MORE INFORMATION?NO LIVING WILL?NO WOULD YOU LIKE MORE INFORMATION?NO POWER OF CARDIOPULMONARY TECHNICIAN AND EEG TECH?NO WOULD YOU LIKE MORE INFORMATION?NO HOSPITALIZATION/MAJOR DIAGNOSTIC PROCEDURE SURGERIES INFECTION 1997 REVIEW OF SYSTEMS REVIEWED BY: PROVIDER: NATHAN ORELLANA MD . CONSTITUTIONAL: ANY CHANGE IN YOUR MEDICAL CONDITION? NO . CHILLS NO . FEVER NO . INFECTION: DO YOU HAVE NEW INFECTIONS? NO . DO YOU HAVE HISTORY OF MRSA? NO . MUSCULOSKELETAL: ANY NEW PATTERNS OF PAIN OR NUMBNESS? NO . GASTROENTEROLOGY: ANY NEW CHANGE IN BOWEL CONTROL? NO . GENITOURINARY: ANY NEW CHANGE IN BLADDER CONTROL? NO . IS THERE A CHANCE YOU COULD BE ? NO . HEMATOLOGY/LYMPH: DO YOU TAKE ANY BLOOD THINNERS? (FOR EXAMPLE- COUMADIN, PLAVIX, AGGRENOX, PLATEL, PRADAXA, OR XARELTO) NO . WHEN WAS YOUR LAST DOSE? DATE: TIME: . NEUROLOGY: HAVE YOU FALLEN IN THE PAST 6 MONTHS? NO . ANY NEW EXTREMITY NUMBNESS OR WEAKNESS? NO . CARDIOLOGY: DO YOU HAVE A PACEMAKER OR DEFIBRILLATOR? NO . RESPIRATORY: HAVE YOU BEEN SICK IN THE PAST WEEK? NO . FEVER NO . FLU LIKE SYMPTOMS? NO . COUGH NO . INTEGUMENTARY: DO YOU HAVE ANY RASHES OR OPEN SORES? NO . ALLERGIC/IMMUNO: ARE YOU ALLERGIC TO SHELLFISH OR IV DYE? NO . ANY NEW ALLERGIES? NO . PSYCHIATRIC: DO YOU HAVE THOUGHTS OF HURTING YOURSELF OR SOMEONE ELSE? NO . ARE YOU ABUSED, NEGLECTED, OR IN AN UNSAFE ENVIRONMENT? NO . ENDOCRINOLOGY: ARE YOU DIABETIC? NO . OTHER: DO YOU NEED ANY PRESCRIPTIONS? NO . IF YES, PLEASE LIST: ____ . ANY NEW PROBLEMS WITH YOUR MEDICATIONS? NO . WHEN DID YOU LAST EAT? ____ . WHEN DID YOU LAST DRINK? ____ . WHAT DID YOU LAST DRINK? ____ . NAME OF PERSON DRIVING YOU HOME? ____ . DO YOU HAVE ANY OTHER QUESTIONS OR CONCERNS NO . VITAL SIGNS WT 335.4 LBS, HT 68 IN, BMI 50.99 INDEX, BP 151/94 MM HG, HR 64 /MIN, RR 18 /MIN, TEMP 97.6 F, OXYGEN SAT % 98%, NA INITIALS SC 09:05, REVIEWED BY: GURMEET. EXAMINATION : PATIENT IS ALERT O X 3 AND COOPERATIVE. THERE IS TENDERNESS IN THE LOW BACK PARASPINAL MUSCLE GROUP. PATIENT AMBULATES WITH A LIMP ON THE LEFT LEG AND HAS AN ANTALGIC GAIT. PATIENT IS ABLE TO FLEX HIS BACK TO 35 DEGREES AND EXTEND TO 5 DEGREES WITH DISCOMFORT. STRAIGHT LEG RAISING IS POSITIVE FOR PAIN ON THE LEFT LEG AT 30 DEGREES. MRI OF THE LUMBAR SPINE DONE ON 09-19-2013 SHOWS BULGING DISC AT MULTIPLE LEVELS. ASSESSMENTS INTERVERTEBRAL DISC DISORDERS WITH RADICULOPATHY, LUMBAR REGION - M51.16 (PRIMARY) INTERVERTEBRAL DISC DISORDERS WITH RADICULOPATHY, LUMBOSACRAL REGION - M51.17 TREATMENT OTHERS REFILL AMITRIPTYLINE HCL TABLET, 10 MG, 2 TABLET AT BEDTIME, ORALLY, BEFORE BEDTIME, 30 DAY(S), 60, REFILLS 5 REFILL OXYCODONE HCL TABLET, 5 MG, 1 TABLET, ORALLY, EVERY 8 HRS PRN PAIN MDD=3 WORKERS COMP, 30 DAYS, 90, REFILLS 0 REFILL LYRICA CAPSULE, 100 MG, 1 CAPSULE, ORALLY, TWICE A DAY MDD=2, 30 DAY(S), 60, REFILLS 0 NOTES: WE DISCUSSED SEVERAL ISSUES ABOUT MR. WHIPPLE'S PAIN MANAGEMENT CASE. AT THIS TIME I WILL REFILL OXYCODONE AND LYRICA FOR THE PATIENT TODAY. PATIENT IS TAKING OXYCODONE FOR SOMATIC PAIN AND AMITRIPTYLINE AND LYRICA FOR NEUROPATHIC PAIN. PATIENT DENIES ABUSE OF ANY MEDICATION, DENIES USE OF ILLEGAL SUBSTANCES, AND STATES HE IS ONLY USING THE MEDICATION FOR PAIN MANAGEMENT. URINE TOXICOLOGY REPORT DONE ON 12/12/16 SHOWS CONSISTENT RESULTS WITH THE PATIENT'S MEDICATION LIST. AT THIS TIME I WOULD LIKE MRI'S OF THE CERVICAL AND THORACIC SPINE. I REVIEWED THE CT'S AND WOULD LIKE A MORE THOROUGH ASSESSMENT SO WE MAY PROCEED WITH INTERVENTIONS. PATIENT WILL RETURN AFTER THE MRI'S HAVE BEEN COMPLETED. INSTRUCTIONS WERE GIVEN, QUESTIONS WERE ANSWERED, PATIENT REPORTS UNDERSTANDING AND AGREES WITH THE PLAN. I, NAN CORDOVA, DOCUMENTED THE ABOVE INFORMATION ACTING A SCRIBE FOR DR. ORELLANA. I HAVE REVIEWED THE ABOVE DOCUMENT, WRITTEN BY NAN MARI AND I VERIFY THAT IT IS ACCURATE. PROCEDURES PN WORKMANS' COMP OPINION IN YOUR OPINION, WAS THE INCIDENT THAT THE PATIENT DESCRIBED THE COMPETENT MEDICAL CAUSE OF THIS INJURY/ILLNESS? YES ARE THE PATIENT'S COMPLAINTS CONSISTENT WITH HIS/HER HISTORY OF THE INJURY/ILLNESS? YES IS THE PATIENT'S HISTORY OF THE INJURY/ILLNESS CONSISTENT WITH YOUR OBJECTIVE FINDING? YES WHAT IS THE PERCENTAGE OF TEMPORARY IMPAIRMENT? MARKED = 75% IS THE PATIENT WORKING? NO DOCTOR ON SITE: NATHAN EASLEY MD PROCEDURE CODES FA211 ESTABILISHED PATIENT [facility] FACILITY CHARGE G8427 DOC MEDS VERIFIED W/PT OR RE G8730 PAIN ASSESS POS TOOL F/U PLAN DOC DISPOSITION & COMMUNICATION FOLLOW UP 4 WEEKS ELECTRONICALLY SIGNED BY NATHAN ORELLANA MD ON 02/09/2017 AT 08:27 PM EDT DISCLAIMER : THIS IS A VISIT SUMMARY EXTRACTED FROM THE [employer] CHART. IT IS NOT A COPY OF THE [employer] PROGRESS NOTE. MTDD
== END ==
LOC: M PAIN 08:40
PROVIDERS: ATTEND Anesthesiology
DX: G89.29 Other chronic pain (principal); M51.16 Intervertebral disc disorders with radiculopathy, lumbar region; M51.17 Intervertebral disc disorders with radiculopathy, lumbosacral region; I10 Essential (primary) hypertension; K21.9 Gastro-esophageal reflux disease without esophagitis; G47.30 Sleep apnea, unspecified; K75.81 Nonalcoholic steatohepatitis (NASH); Z91.030 Bee allergy status; Z88.0 Allergy status to penicillin; Z88.8 Allergy status to other drugs, medicaments and biological substances; Z79.891 Long term (current) use of opiate analgesic; Z79.899 Other long term (current) drug therapy

== ENCOUNTER → 2017-02-11 | Outpatient (CLI) | payer OTHER ==
[~2017-02-11] MED LIST changes: +ISOVUE-M 300 61% 15ML VIAL (Q9967) As Ordered ONE; +LIDOCAINE 1% SDV INJ 30 ML VIAL As Ordered ONE; +diazePAM 5 MG TAB As Ordered ONE; +methylPREDNISolone SUSP 40 MG/ML (DEPO-medrol) VIAL (J1030) As Ordered ONE; +oxyCODONE 5MG TAB As Ordered ONE
--- NOTE | 2017-02-11 15:02 | REP ---
FLUOROSCOPIC GUIDED SPINAL INJECTION: The films were reviewed with Dr. Lora. The patient has a history of radiculopathy and bilateral leg numbness. The portable C-arm was provided in the OR for Dr. Morales for fluoroscopic guidance. Three intraoperative fluoroscopic spot films were obtained for needle placement verification for lumbar epidural injection. The films are on the PACs system and are available for review. 16 seconds of fluoroscopic time was utilized for this procedure. Reviewed by VANI Richardson 02/12/2017 07:56 AEdited and Signed by John Lora MD 02/12/2017 05:41 P
--- NOTE | 2017-03-01 23:50 | ECWPNPC ---
PATIENT NAME: CAMILO WHIPPLE : 1965 GENDER: MALE VISIT DATE: 02/11/2017 DISCHARGE DATE: 02/11/17 1430 VISIT LOCKED DATE TIME: PHYSICIAN: NATHAN ORELLANA RESOURCE: NATHAN ORELLANA REASON FOR APPOINTMENT 1. LESI HISTORY OF PRESENT ILLNESS HISTORY OF PRESENT ILLNESS: PAIN THE PATIENT DESCRIBES THE PAIN... FALL RISK SCREENING: SCREENING :NO FALLS IN THE PAST YEAR CURRENT MEDICATIONS TAKING AMITRIPTYLINE HCL 10 MG TABLET 2 TABLET AT BEDTIME ORALLY BEFORE BEDTIME, NOTES: 19302/10/17 TAKING OXYCODONE HCL 5 MG TABLET 1 TABLET ORALLY EVERY 8 HRS PRN PAIN MDD=3 WORKERS COMP, NOTES: 1256 TODAY TAKING LYRICA 100 MG CAPSULE 1 CAPSULE ORALLY TWICE A DAY MDD=2, NOTES: 52902/11/17 TAKING ATENOLOL 50 MG TABLET 1 TABLET ORALLY BID, NOTES: 52902/11/17 TAKING TURMERIC 1 CAPSULE 1 CAP ORALLY DAILY, NOTES: YESTERDAY TAKING BIOFREEZE 0.2-3.5 % GEL EXTERNALLY TAKING VITAMIN B COMPLEX 1 TABLET 1 TAB(S) ORALLY DAILY, NOTES: YESTERDAY NOT-TAKING VITAMIN D 1000 UNIT TABLET 1 TABLET ORALLY EVERY OTHER DAY, NOTES: ONLY TAKES DURING THE WINTER NOT-TAKING DICLOFENAC SODIUM ER 75 MG TABLET EXTENDED RELEASE 24 HOUR 1 TABLET ORALLY BID WITH FOOD WORKERS COMP NOT-TAKING LOVASTATIN 20 MG TABLET 1 TABLET WITH A MEAL ORALLY ONCE A DAY MEDICATION LIST REVIEWED AND RECONCILED WITH THE PATIENT PAST MEDICAL HISTORY HTN HIGH CHOLESTEROL (BORDELINE) GERD SLEEP APNEA 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, LEFT WORSE THAN RIGHT 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 CONSTITUTIONAL: ANY CHANGE IN YOUR MEDICAL CONDITION? NO . CHILLS NO . FEVER NO . INFECTION: DO YOU HAVE NEW INFECTIONS? NO . DO YOU HAVE HISTORY OF MRSA? NO . MUSCULOSKELETAL: ANY NEW PATTERNS OF PAIN OR NUMBNESS? NO . GASTROENTEROLOGY: ANY NEW CHANGE IN BOWEL CONTROL? NO . GENITOURINARY: ANY NEW CHANGE IN BLADDER CONTROL? NO . IS THERE A CHANCE YOU COULD BE ? NO . HEMATOLOGY/LYMPH: DO YOU TAKE ANY BLOOD THINNERS? (FOR EXAMPLE- COUMADIN, PLAVIX, AGGRENOX, PLATEL, PRADAXA, OR XARELTO) NO . WHEN WAS YOUR LAST DOSE? DATE: TIME: . NEUROLOGY: HAVE YOU FALLEN IN THE PAST 6 MONTHS? NO . ANY NEW EXTREMITY NUMBNESS OR WEAKNESS? NO . CARDIOLOGY: DO YOU HAVE A PACEMAKER OR DEFIBRILLATOR? NO . RESPIRATORY: HAVE YOU BEEN SICK IN THE PAST WEEK? NO . FEVER NO . FLU LIKE SYMPTOMS? NO . COUGH NO . INTEGUMENTARY: DO YOU HAVE ANY RASHES OR OPEN SORES? NO . ALLERGIC/IMMUNO: ARE YOU ALLERGIC TO SHELLFISH OR IV DYE? NO . ANY NEW ALLERGIES? NO . PSYCHIATRIC: DO YOU HAVE THOUGHTS OF HURTING YOURSELF OR SOMEONE ELSE? NO . ARE YOU ABUSED, NEGLECTED, OR IN AN UNSAFE ENVIRONMENT? NO . ENDOCRINOLOGY: ARE YOU DIABETIC? NO . OTHER: DO YOU NEED ANY PRESCRIPTIONS? NO . IF YES, PLEASE LIST: ____ . ANY NEW PROBLEMS WITH YOUR MEDICATIONS? NO . WHEN DID YOU LAST EAT? 8PM . WHEN DID YOU LAST DRINK? 9AM . WHAT DID YOU LAST DRINK? WATER . NAME OF PERSON DRIVING YOU HOME? / ROXANNE . DO YOU HAVE ANY OTHER QUESTIONS OR CONCERNS NO . VITAL SIGNS WT 329.6 LBS, HT 68 IN, BMI 50.11 INDEX, BP 140/78 MM HG, HR 62 /MIN, RR 18 /MIN, TEMP 97.3 F, OXYGEN SAT % 99%, NA INITIALS SC 11:41, REVIEWED BY: NL. ASSESSMENTS INTERVERTEBRAL DISC DISORDERS WITH RADICULOPATHY, LUMBAR REGION - M51.16 (PRIMARY) PROCEDURES PRE PROCEDURE DIAGNOSIS LUMBOSACRAL DISC DISORDER WITH RADICULOPATHY POST PROCEDURE DIAGNOSIS LUMBOSACRAL DISC DISORDER WITH RADICULOPATHY PROCEDURE LUMBAR EPIDURAL STEROID INJECTION UNDER FLUOROSCOPIC GUIDANCE SURGEON DR. NATHAN ORELLANA FINANCIAL PLANNING ADVISER NONE ANESTHESIA LOCAL PRE PROCEDURE NOTE THE PATIENT HAS A HISTORY OF CHRONIC LOW BACK PAIN. I EVALUATE THE PATIENT AND REVIEWED THE CHART. I WENT OVER THE RISKS, ALTERNATIVES, AND BENEFITS ASSOCIATED WITH THIS PROCEDURE. THE PATIENT WOULD LIKE TO PROCEED AND GIVE CONSENT TO PERFORMED THE PROCEDURE. THE PATIENT DENIES UNEXPLAINABLE WEIGHT LOSS, FEVER, CHILLS, OR NEW CHANGES IN URINARY OR BOWEL CONTROL. DESCRIPTION OF PROCEDURE THE PATIENT WAS BROUGHT TO THE PROCEDURE ROOM AND PLACED IN THE PRONE POSITION. THE LUMBOSACRAL AREA WAS CLEANED WITH BETADINE SOLUTION AND DRAPED ASEPTICALLY. THE PROCEDURE WAS DONE UNDER STERILE CONDITIONS. I CHECKED LATERALITY AND THE LEVEL WHERE THE PROCEDURE WAS GOING TO BE PERFORMED WITH THE PATIENT AND THE SUPPORTING STAFF AT THE MOMENT OF THE TIME OUT IN THE PROCEDURE ROOM. UNDER FLUOROSCOPIC GUIDANCE, THE TARGET POINT WAS SELECTED AT THE INTERLAMINAR LEVEL OF L5-S1. LIDOCAINE WAS USED TO NUMB THE SKIN AND THE SUBCUTANEOUS TISSUE BELOW IT. EPIDURAL TUOHY NEEDLE, 17-GAUGE, WAS ADVANCED UNDER FLUOROSCOPIC GUIDANCE AND FOLLOWING PATIENT FEEDBACK UNTIL THE EPIDURAL SPACE WAS REACHED, 7 CM DEEP INTO THE SKIN BY THE LOSS OF RESISTANCE TECHNIQUE. ISOVUE M DYE 30%, 0.25 ML, WAS INJECTED SHOWING ADEQUATE SPREAD OF THE DYE. THEN, A SOLUTION OF 3 ML OF NORMAL SALINE WITH DEPO-MEDROL 60 MG WAS INJECTED SLOWLY FOLLOWING PATIENT FEEDBACK. THERE WAS NO EVIDENCE OF BLOOD, PARESTHESIA OR CEREBROSPINAL FLUID DURING THE PROCEDURE. THE PATIENT WAS SENT TO THE RECOVERY ROOM. THE PATIENT WAS MOVING THE EXTREMITIES AND DOING WELL. THERE WAS NO COMPLICATION DURING THE PROCEDURE. FLUOROSCOPY TIME WAS 16 SECONDS. POST PROCEDURE NOTE THE PATIENT WILL BE SEEN IN A FOLLOW UP IN THE NEXT FEW WEEKS. INSTRUCTIONS WERE GIVEN, QUESTIONS WERE ANSWERED, AND THE PATIENT EXPRESSED UNDERSTANDING AND AGREES WITH THE PLAN. I, NAN CORDOVA, DOCUMENTED THE ABOVE INFORMATION ACTING A SCRIBE FOR DR. ORELLANA. I HAVE REVIEWED THE ABOVE DOCUMENT, WRITTEN BY NAN MARI AND I VERIFY THAT IT IS ACCURATE PN WORKMANS' COMP OPINION IN YOUR OPINION, WAS THE INCIDENT THAT THE PATIENT DESCRIBED THE COMPETENT MEDICAL CAUSE OF THIS INJURY/ILLNESS? YES ARE THE PATIENT'S COMPLAINTS CONSISTENT WITH HIS/HER HISTORY OF THE INJURY/ILLNESS? YES IS THE PATIENT'S HISTORY OF THE INJURY/ILLNESS CONSISTENT WITH YOUR OBJECTIVE FINDING? YES WHAT IS THE PERCENTAGE OF TEMPORARY IMPAIRMENT? MARKED = 75% IS THE PATIENT WORKING? NO DOCTOR ON SITE: NATHAN EASLEY MD DIAGNOSTIC IMAGING [facility] FLUORO GUIDE SPINE INJECTION (PAIN)[id number] PROCEDURE CODES 93101 LUMBAR/SACRAL W/ IMAGING 6045F RADXPS IN END [id number] PXD DISPOSITION & COMMUNICATION FOLLOW UP 3 WEEKS ELECTRONICALLY SIGNED BY NATHAN ORELLANA MD ON 03/01/2017 AT 08:13 AM EDT DISCLAIMER : THIS IS A VISIT SUMMARY EXTRACTED FROM THE [employer] CHART. IT IS NOT A COPY OF THE [employer] PROGRESS NOTE. LISA
== END ==
LOC: M PAIN 11:40
PROVIDERS: ATTEND Anesthesiology
DX: G89.29 Other chronic pain (principal); M51.16 Intervertebral disc disorders with radiculopathy, lumbar region; I10 Essential (primary) hypertension; E78.00 Pure hypercholesterolemia, unspecified; K21.9 Gastro-esophageal reflux disease without esophagitis; G47.30 Sleep apnea, unspecified; Z91.030 Bee allergy status; Z88.0 Allergy status to penicillin; Z88.8 Allergy status to other drugs, medicaments and biological substances; Z79.891 Long term (current) use of opiate analgesic; Z79.899 Other long term (current) drug therapy
CPT/HCPCS: 62323; J1030; Q9967

== ENCOUNTER → 2017-04-17 | Outpatient (CLI) | payer OTHER ==
[~2017-04-17] MED LIST changes: -ISOVUE-M 300 61% 15ML VIAL (Q9967) As Ordered ONE; -LIDOCAINE 1% SDV INJ 30 ML VIAL As Ordered ONE; -diazePAM 5 MG TAB As Ordered ONE; -methylPREDNISolone SUSP 40 MG/ML (DEPO-medrol) VIAL (J1030) As Ordered ONE; -oxyCODONE 5MG TAB As Ordered ONE
--- NOTE | 2017-04-29 02:03 | ECWPNPC ---
PATIENT NAME: CAMILO WHIPPLE : 1965 GENDER: MALE VISIT DATE: 04/17/2017 DISCHARGE DATE: 04/17/17 1020 VISIT LOCKED DATE TIME: PHYSICIAN: NATHAN ORELLANA RESOURCE: NATHAN ORELLANA REASON FOR APPOINTMENT 1. W/C LOW BACK, NECK, LEFT SHOULDER HISTORY OF PRESENT ILLNESS HISTORY OF PRESENT ILLNESS: PAIN THE PATIENT DESCRIBES THE PAIN... 50 YEAR OLD MALE PATIENT WITH HISTORY OF CHRONIC NECK, MID-BACK, AND LOW BACK PAIN. PATIENT DESCRIBES THE PAIN ACHING, TENDER, SORE, AND HAVING IT ALL THE TIME WITH A PAIN SCORE OF 6/10 ON TODAY'S VISIT. PATIENT WAS INJURED IN A WORK RELATED INJURY. PATIENT WAS WORKING IN THE [employer] OVER THE COURSE OF MANY YEARS, DUE TO THE TRAUMA ON 01/08/2000 HE WAS TAKEN OUT OF WORK. PATIENT RECEIVED A LUMBAR EPIDURAL ON 02/11/17 AND REPORTS THE INJECTION NOT AIDING THE PATIENT IS PAIN RELIEF AT THIS TIME. PATIENT STATES THAT IN 2001 HE HAD TWO BACK SURGERIES ONE IN JANUARY AND THE OTHER IN JUNE. PATIENT STATES THAT HE HAS TRIED PHYSICAL THERAPY IN THE PAST WITH NO IMPROVEMENT. PATIENT STATES THAT HIS LOW BACK HURT THE MOST TODAY AND FEELS A PRESSURE AND STATES IT FEELS LIKE IT COULD "EXPLODE". MR. WHIPPLE ALSO REPORTS HAVING THE FEELING OF A JOSE HORSE CONSTANTLY IN HIS LEFT CALF. PATIENT STATES THAT HE HAS RADIATING PAIN DOWN THE BACK OF HIS LEFT LEG FROM HIS BACK. PATIENT IS CURRENTLY USING LYRICA AND OXYCODONE AND STATES THAT THE MEDICATION KEEPS HIM MOBILE AND FUNCTIONAL. PATIENT DENIES UNEXPLAINABLE WEIGHT LOSS, FEVER, CHILLS, NEW CHANGES ON HIS URINARY OR BOWEL CONTROL. FALL RISK SCREENING: SCREENING :NO FALLS IN THE PAST YEAR CURRENT MEDICATIONS NOT-TAKING VITAMIN B COMPLEX 1 TABLET 1 TAB(S) ORALLY DAILY UNKNOWN ATENOLOL 50 MG TABLET 1 TABLET ORALLY BID UNKNOWN TURMERIC 1 CAPSULE 1 CAP ORALLY DAILY UNKNOWN BIOFREEZE 0.2-3.5 % GEL EXTERNALLY UNKNOWN OXYCODONE HCL 5 MG TABLET 1 TABLET ORALLY EVERY 8 HRS PRN PAIN MDD=3 WORKERS COMP UNKNOWN LYRICA 100 MG CAPSULE 1 CAPSULE ORALLY TWICE A DAY MDD=2 UNKNOWN AMITRIPTYLINE HCL 10 MG TABLET 2 TABLET AT BEDTIME ORALLY BEFORE BEDTIME UNKNOWN VITAMIN D 1000 UNIT TABLET 1 TABLET ORALLY EVERY OTHER DAY, NOTES: ONLY TAKES DURING THE WINTER UNKNOWN DICLOFENAC SODIUM ER 75 MG TABLET EXTENDED RELEASE 24 HOUR 1 TABLET ORALLY BID WITH FOOD WORKERS COMP UNKNOWN LOVASTATIN 20 MG TABLET 1 TABLET WITH A MEAL ORALLY ONCE A DAY MEDICATION LIST REVIEWED AND RECONCILED WITH THE PATIENT PAST MEDICAL HISTORY HTN HIGH CHOLESTEROL (BORDELINE) GERD SLEEP APNEA 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, LEFT WORSE THAN RIGHT 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 CONSTITUTIONAL: ANY CHANGE IN YOUR MEDICAL CONDITION? NO . CHILLS NO . FEVER NO . INFECTION: DO YOU HAVE NEW INFECTIONS? NO . DO YOU HAVE HISTORY OF MRSA? NO . MUSCULOSKELETAL: ANY NEW PATTERNS OF PAIN OR NUMBNESS? YES MORE PRESSURE CONSTANTLY IN LOWER BACK SINCE INJECTION . GASTROENTEROLOGY: ANY NEW CHANGE IN BOWEL CONTROL? NO . GENITOURINARY: ANY NEW CHANGE IN BLADDER CONTROL? NO . IS THERE A CHANCE YOU COULD BE ? NO . HEMATOLOGY/LYMPH: DO YOU TAKE ANY BLOOD THINNERS? (FOR EXAMPLE- COUMADIN, PLAVIX, AGGRENOX, PLATEL, PRADAXA, OR XARELTO) NO . WHEN WAS YOUR LAST DOSE? DATE: TIME: . NEUROLOGY: HAVE YOU FALLEN IN THE PAST 6 MONTHS? NO . ANY NEW EXTREMITY NUMBNESS OR WEAKNESS? NO . CARDIOLOGY: DO YOU HAVE A PACEMAKER OR DEFIBRILLATOR? NO . RESPIRATORY: HAVE YOU BEEN SICK IN THE PAST WEEK? NO . FEVER NO . FLU LIKE SYMPTOMS? NO . COUGH NO . INTEGUMENTARY: DO YOU HAVE ANY RASHES OR OPEN SORES? NO . ALLERGIC/IMMUNO: ARE YOU ALLERGIC TO SHELLFISH OR IV DYE? NO . ANY NEW ALLERGIES? NO . PSYCHIATRIC: DO YOU HAVE THOUGHTS OF HURTING YOURSELF OR SOMEONE ELSE? NO . ARE YOU ABUSED, NEGLECTED, OR IN AN UNSAFE ENVIRONMENT? NO . ENDOCRINOLOGY: ARE YOU DIABETIC? NO . OTHER: DO YOU NEED ANY PRESCRIPTIONS? NO . IF YES, PLEASE LIST: ____ . ANY NEW PROBLEMS WITH YOUR MEDICATIONS? NO . WHEN DID YOU LAST EAT? ____ . WHEN DID YOU LAST DRINK? ____ . WHAT DID YOU LAST DRINK? ____ . NAME OF PERSON DRIVING YOU HOME? ____ . DO YOU HAVE ANY OTHER QUESTIONS OR CONCERNS NO . EXAMINATION : PATIENT IS ALERT O X 3 AND COOPERATIVE. THERE IS TENDERNESS IN THE LOW BACK PARASPINAL MUSCLE GROUP. PATIENT AMBULATES WITH A LIMP ON THE LEFT LEG AND HAS AN ANTALGIC GAIT. PATIENT IS ABLE TO FLEX HIS BACK TO 35 DEGREES AND EXTEND TO 5 DEGREES WITH DISCOMFORT. STRAIGHT LEG RAISING IS POSITIVE FOR PAIN ON THE LEFT LEG AT 30 DEGREES. MRI OF THE LUMBAR SPINE DONE ON 09-19-2013 SHOWS BULGING DISC AT MULTIPLE LEVELS. 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 WHIPPLE'S PAIN MANAGEMENT CASE. AT THIS TIME THE PATIENT WILL CONTINUE WIT THE SAME MEDICATION REGIME BEFORE. PATIENT IS USING THE OXYCODONE FOR THE SOMATIC PAIN AND LYRICA FOR THE NEUROPATHIC PAIN. PATIENT DENIES ABUSE OF ANY MEDICATION, DENIES USE OF ILLEGAL SUBSTACNES, AND STATES HE IS ONLY USING THE MEDICATION FOR PAIN MANAGEMENT. URINE TOXICOLOGY REPORT DONE ON 12/02/16 SHOWS CONSISTENT RESULTS WITH THE PATIENTS MEDICATION LIST. PATIENT WAS REMINDED TO BRING ALL MEDICATIONS TO EVERY VISIT. ISTOP REVIEWED [id number]. AT THIS TIME DUE TO THE MULTIPLE PROBLEMS THE PATIENT IS HAVING I WOULD LIKE TO MOVE FORWARD WITH A CERVICAL, THORACIC AND LUMBAR CT TO BETTER ASSESS THE PAIN AND TO SEE WHAT POSSIBLE INTERVENTIONS MAY AID THE PATIENT IN PAIN RELIEF. AFTER THE CT'S THE PATIENT WILL RETURN TO CLINIC TO FURTHER DISCUSS HIS CASE. INSTRUCTIONS WERE GIVEN, QUESTIONS WERE ANSWERED, PATIENT REPORTS UNDERSTANDING AND AGREES WITH THE PLAN. I, NAN CORDOVA, DOCUMENTED THE ABOVE INFORMATION ACTING A SCRIBE FOR DR. ORELLANA. I HAVE REVIEWED THE ABOVE DOCUMENT, WRITTEN BY NAN MARI AND I VERIFY THAT IT IS ACCURATE. OTHERS REFILL OXYCODONE HCL TABLET, 5 MG, 1 TABLET, ORALLY, EVERY 8 HRS PRN PAIN MDD=3 WORKERS COMP, 30 DAYS, 90, REFILLS 0 REFILL LYRICA CAPSULE, 100 MG, 1 CAPSULE, ORALLY, TWICE A DAY MDD=2, 30 DAY(S), 60, REFILLS 0 NOTES: CT ORDER FOR CERVICAL, THORACIC, AND LUMBAR. PROCEDURES PN WORKMANS' COMP OPINION IN YOUR OPINION, WAS THE INCIDENT THAT THE PATIENT DESCRIBED THE COMPETENT MEDICAL CAUSE OF THIS INJURY/ILLNESS? YES ARE THE PATIENT'S COMPLAINTS CONSISTENT WITH HIS/HER HISTORY OF THE INJURY/ILLNESS? YES IS THE PATIENT'S HISTORY OF THE INJURY/ILLNESS CONSISTENT WITH YOUR OBJECTIVE FINDING? YES WHAT IS THE PERCENTAGE OF TEMPORARY IMPAIRMENT? MARKED = 75% IS THE PATIENT WORKING? NO DOCTOR ON SITE: NATHAN EASLEY MD PROCEDURE CODES FA211 ESTABILISHED PATIENT [facility] FACILITY CHARGE G8427 DOC MEDS VERIFIED W/PT OR RE G8730 PAIN ASSESS POS TOOL F/U PLAN DOC DISPOSITION & COMMUNICATION FOLLOW UP 4 WEEKS ELECTRONICALLY SIGNED BY NATHAN ORELLANA MD ON 04/27/2017 AT 04:43 PM EDT DISCLAIMER : THIS IS A VISIT SUMMARY EXTRACTED FROM THE [employer] CHART. IT IS NOT A COPY OF THE [employer] PROGRESS NOTE. MTDD
== END ==
LOC: M PAIN 08:45
PROVIDERS: ATTEND Anesthesiology
DX: G89.29 Other chronic pain (principal); M47.812 Spondylosis without myelopathy or radiculopathy, cervical region; M47.816 Spondylosis without myelopathy or radiculopathy, lumbar region; M47.817 Spondylosis without myelopathy or radiculopathy, lumbosacral region; M51.16 Intervertebral disc disorders with radiculopathy, lumbar region; M51.17 Intervertebral disc disorders with radiculopathy, lumbosacral region; I10 Essential (primary) hypertension; E78.00 Pure hypercholesterolemia, unspecified; K21.9 Gastro-esophageal reflux disease without esophagitis; G47.30 Sleep apnea, unspecified; Z88.1 Allergy status to other antibiotic agents; Z91.030 Bee allergy status; Z88.0 Allergy status to penicillin; Z88.8 Allergy status to other drugs, medicaments and biological substances; Z79.891 Long term (current) use of opiate analgesic; Z79.899 Other long term (current) drug therapy

== ENCOUNTER → 2017-06-23 | Outpatient (CLI) | payer OTHER ==
--- NOTE | 2017-07-05 23:59 | ECWPNPC ---
PATIENT NAME: CAMILO WHIPPLE : 1965 GENDER: MALE VISIT DATE: 06/23/2017 DISCHARGE DATE: 06/23/17 1208 VISIT LOCKED DATE TIME: PHYSICIAN: NATHAN ORELLANA RESOURCE: NATHAN ORELLANA REASON FOR APPOINTMENT 1. W/C LOW BACK HISTORY OF PRESENT ILLNESS HISTORY OF PRESENT ILLNESS: PAIN THE PATIENT DESCRIBES THE PAIN... 51 YEAR OLD MALE PATIENT WITH HISTORY OF CHRONIC NECK, MID-BACK, AND LOW BACK PAIN. PATIENT DESCRIBES THE PAIN ACHING, TENDER, SORE, AND HAVING IT ALL THE TIME WITH A PAIN SCORE OF 6/10 ON TODAY'S VISIT. PATIENT WAS INJURED IN A WORK RELATED INJURY. PATIENT WAS WORKING IN THE [employer] OVER THE COURSE OF MANY YEARS, DUE TO THE TRAUMA ON 01/08/2000 HE WAS TAKEN OUT OF WORK. PATIENT STATES THAT IN 2001 HE HAD A THORASIC OUTLET AND A CLAVICAL RESECTION .PATIENT STATES THAT HE HAS TRIED PHYSICAL THERAPY IN THE PAST WITH NO IMPROVEMENT. PATIENT STATES THAT HIS LOW BACK HURT THE MOST TODAY AND MR. WHIPPLE ALSO REPORTS HAVING THE FEELING OF A JOSE HORSE CONSTANTLY IN HIS LEFT CALF. PATIENT STATES THAT HE HAS RADIATING PAIN DOWN THE BACK OF HIS LEFT LEG FROM HIS BACK. PATIENT IS CURRENTLY USING LYRICA AND OXYCODONE AND STATES THAT THE MEDICATION KEEPS HIM MOBILE AND FUNCTIONAL. PATIENT DENIES UNEXPLAINABLE WEIGHT LOSS, FEVER, CHILLS, NEW CHANGES ON HIS URINARY OR BOWEL CONTROL. FALL RISK SCREENING: SCREENING :NO FALLS IN THE PAST YEAR CURRENT MEDICATIONS TAKING LYRICA 100 MG CAPSULE 1 CAPSULE ORALLY TWICE A DAY MDD=2 TAKING OXYCODONE HCL 5 MG TABLET 1 TABLET ORALLY EVERY 8 HRS PRN PAIN MDD=3 WORKERS COMP TAKING ATENOLOL 50 MG TABLET 1 TABLET ORALLY BID TAKING TURMERIC 1 CAPSULE 1 CAP ORALLY DAILY TAKING BIOFREEZE 0.2-3.5 % GEL EXTERNALLY TAKING AMITRIPTYLINE HCL 10 MG TABLET 2 TABLET AT BEDTIME ORALLY BEFORE BEDTIME TAKING VITAMIN D 1000 UNIT TABLET 1 TABLET ORALLY EVERY OTHER DAY, NOTES: ONLY TAKES DURING THE WINTER TAKING DICLOFENAC SODIUM ER 75 MG TABLET EXTENDED RELEASE 24 HOUR 1 TABLET ORALLY BID WITH FOOD WORKERS COMP TAKING LOVASTATIN 20 MG TABLET 1 TABLET WITH A MEAL ORALLY ONCE A DAY NOT-TAKING VITAMIN B COMPLEX 1 TABLET 1 TAB(S) ORALLY DAILY MEDICATION LIST REVIEWED AND RECONCILED WITH THE PATIENT PAST MEDICAL HISTORY HTN HIGH CHOLESTEROL (BORDELINE) GERD SLEEP APNEA 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, LEFT WORSE THAN RIGHT 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 ALLERGIES BACLOFEN: RASH, WHEEZING: ALLERGY BEE VENOM: ANAPHYLAXIS: ALLERGY PENICILLIN (FOR ALLERGIES USE ONLY): ANAPHYLAXIS: ALLERGY HYDROCHLOROTHIAZIDE: MIGRAINE: ALLERGY TYLENOL: DYSPNEA, SWELLING: ALLERGY SURGICAL HISTORY THORACIC DECOMPRESSION 2002 LEFT CLAVICLE RESECTION 2002 TONSILLECTOMY/ADENOIDECTOMY 1976 POLYPS REMOVED 2004 COLONOSCOPY 01/2017 SOCIAL HISTORY GENERAL: TOBACCO USE ARE YOU A:NONSMOKER ALCOHOL SCREENING DID YOU HAVE A DRINK CONTAINING ALCOHOL IN THE PAST YEAR?NO POINTS0 INTERPRETATIONNEGATIVE JEWISH [id number] YARSANI LANGUAGE LANGUAGES SPOKEN:CZECH 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 NEW PATIENT PAIN DIARY TODAY'S VISITNOTES FROM 0-10, WHAT LEVEL IS YOUR PAIN TODAY?0 PAIN CLINIC PFS, CLERGY, PUBLIC HEALTH REFERRALS PFS REFERRAL NEEDED?NO CLERGY REFERRAL NEEDED?NO PUBLIC HEALTH REFERRAL NEEDED?NO WAS THE PROVIDER NOTIFIED OF ANY PERTINENT INFO?NO HAS THE PATIENT BEEN EDUCATED REGARDING HIS/HER PLAN OF CARE?YES HAS THE PATIENT BEEN EDUCATED REGARDING PAIN, THE RISK FOR PAIN, THE IMPORTANCE OF EFFECTIVE PAIN MANAGEMENT, AND THE PAIN ASSESSMENT PROCESS?YES ADVANCE DIRECTIVES HEALTH CARE PROXY?YES NAME OF HCP ROXANNE WHIPPLE CONTACT # FOR HCP [phone] DO YOU HAVE A COPY WITH YOU? NO DO YOU HAVE A DNR?NO WOULD YOU LIKE MORE INFORMATION?NO LIVING WILL?NO WOULD YOU LIKE MORE INFORMATION?NO POWER OF HELP DESK CONSULTANT?NO WOULD YOU LIKE MORE INFORMATION?NO HOSPITALIZATION/MAJOR DIAGNOSTIC PROCEDURE SURGERIES INFECTION 1997 REVIEW OF SYSTEMS REVIEWED BY: PROVIDER: NATHAN ORELLANA MD . CONSTITUTIONAL: ANY CHANGE IN YOUR MEDICAL CONDITION? NO . CHILLS NO . FEVER NO . INFECTION: DO YOU HAVE NEW INFECTIONS? NO . DO YOU HAVE HISTORY OF MRSA? NO . MUSCULOSKELETAL: ANY NEW PATTERNS OF PAIN OR NUMBNESS? NO . GASTROENTEROLOGY: ANY NEW CHANGE IN BOWEL CONTROL? NO . GENITOURINARY: ANY NEW CHANGE IN BLADDER CONTROL? NO . IS THERE A CHANCE YOU COULD BE ? NO . HEMATOLOGY/LYMPH: DO YOU TAKE ANY BLOOD THINNERS? (FOR EXAMPLE- COUMADIN, PLAVIX, AGGRENOX, PLATEL, PRADAXA, OR XARELTO) NO . WHEN WAS YOUR LAST DOSE? DATE: TIME: . NEUROLOGY: HAVE YOU FALLEN IN THE PAST 6 MONTHS? NO . ANY NEW EXTREMITY NUMBNESS OR WEAKNESS? NO . CARDIOLOGY: DO YOU HAVE A PACEMAKER OR DEFIBRILLATOR? NO . RESPIRATORY: HAVE YOU BEEN SICK IN THE PAST WEEK? NO . FEVER NO . FLU LIKE SYMPTOMS? NO . COUGH NO . INTEGUMENTARY: DO YOU HAVE ANY RASHES OR OPEN SORES? NO . ALLERGIC/IMMUNO: ARE YOU ALLERGIC TO SHELLFISH OR IV DYE? NO . ANY NEW ALLERGIES? NO . PSYCHIATRIC: DO YOU HAVE THOUGHTS OF HURTING YOURSELF OR SOMEONE ELSE? NO . ARE YOU ABUSED, NEGLECTED, OR IN AN UNSAFE ENVIRONMENT? NO . ENDOCRINOLOGY: ARE YOU DIABETIC? NO . OTHER: DO YOU NEED ANY PRESCRIPTIONS? NO . IF YES, PLEASE LIST: ____ . ANY NEW PROBLEMS WITH YOUR MEDICATIONS? NO . WHEN DID YOU LAST EAT? ____ . WHEN DID YOU LAST DRINK? ____ . WHAT DID YOU LAST DRINK? ____ . NAME OF PERSON DRIVING YOU HOME? ____ . DO YOU HAVE ANY OTHER QUESTIONS OR CONCERNS YES, CT SCANS . VITAL SIGNS WT 326.9 LBS, HT 68 IN, BMI 49.70 INDEX, BP 141/88 MM HG, HR 73 /MIN, RR 18 /MIN, TEMP 98.1 F, OXYGEN SAT % 99%, NA INITIALS SC 09:51, REVIEWED BY: PIERRE. EXAMINATION : PATIENT IS ALERT O X 3 AND COOPERATIVE. THERE IS TENDERNESS IN THE LOW BACK PARASPINAL MUSCLE GROUP. PATIENT AMBULATES WITH A LIMP ON THE LEFT LEG AND HAS AN ANTALGIC GAIT. PATIENT IS ABLE TO FLEX HIS LEFT LEG TO 15 DEGREES AND HIS RIGHT LEG TO 15 DEGREES WITH DISCOMFORT. LEFT LEG IS WEAKER AT EXTENSION AND FLEXION. MRI OF THE LUMBAR SPINE DONE ON 09-19-2013 SHOWS BULGING DISC AT MULTIPLE LEVELS. ASSESSMENTS SPONDYLOSIS OF CERVICAL REGION WITHOUT MYELOPATHY OR RADICULOPATHY - M47.812 (PRIMARY) SPONDYLOSIS OF LUMBAR REGION WITHOUT MYELOPATHY OR RADICULOPATHY - M47.816 SPONDYLOSIS OF LUMBOSACRAL REGION WITHOUT MYELOPATHY OR RADICULOPATHY - M47.817 INTERVERTEBRAL DISC DISORDER WITH RADICULOPATHY OF LUMBAR REGION - M51.16 INTERVERTEBRAL DISC DISORDER WITH RADICULOPATHY OF LUMBOSACRAL REGION - M51.17 TREATMENT SPONDYLOSIS OF CERVICAL REGION WITHOUT MYELOPATHY OR RADICULOPATHY CLINICAL NOTES: WE DISCUSSED SEVERAL ISSUES WITH MR. WHIPPLE'S PAIN MANAGEMENT CASE. PATIENT IS USING THE OXYCODONE FOR THE SOMATIC PAIN AND LYRICA FOR THE NEUROPATHIC PAIN. PATIENT DENIES ABUSE OF ANY MEDICATION, DENIES USE OF ILLEGAL SUBSTANCES, AND STATES HE IS ONLY USING THE MEDICATION FOR PAIN MANAGEMENT. PATIENT AGREES ON STARTING TO WEAN HIMSELF OFF OF THE OXYCODONE AND THE LYRICA . AT THIS TIME DUE TO THE MULTIPLE PROBLEMS THE PATIENT IS HAVING I WOULD LIKE TO MOVE FORWARD WITH A LUMBAR MRI TO BETTER ASSESS THE PAIN AND TO SEE WHAT POSSIBLE INTERVENTIONS MAY AID THE PATIENT IN PAIN RELIEF. THE PATIENT IS HAVING DIFFICULTIES TO WALK, TO MOVE AND TO PERFORMED BASIC ACTIVITIES. AFTER THE MRI THE PATIENT WILL RETURN TO CLINIC TO FURTHER DISCUSS HIS CASE. INSTRUCTIONS WERE GIVEN, QUESTIONS WERE ANSWERED, PATIENT REPORTS UNDERSTANDING AND AGREES WITH THE PLAN. I, CORINNE FRANCO, DOCUMENTED THE ABOVE INFORMATION ACTING A SCRIBE FOR DR. ORELLANA. I HAVE REVIEWED THE ABOVE DOCUMENT, WRITTEN BY CORINNE CARDOSOIBPascual AND I VERIFY THAT IT IS ACCURATE. PROCEDURE CODES FA211 ESTABILISHED PATIENT [facility] FACILITY CHARGE G8730 PAIN ASSESS POS TOOL F/U PLAN DOC G8427 DOC MEDS VERIFIED W/PT OR RE DISPOSITION & COMMUNICATION FOLLOW UP 6 WEEKS ELECTRONICALLY SIGNED BY NATHAN ORELLANA MD ON 07/05/2017 AT 07:17 PM EST DISCLAIMER : THIS IS A VISIT SUMMARY EXTRACTED FROM THE [employer] CHART. IT IS NOT A COPY OF THE [employer] PROGRESS NOTE. MTDD
== END ==
LOC: M PAIN 09:30
PROVIDERS: ATTEND Anesthesiology
DX: G89.29 Other chronic pain (principal); M47.812 Spondylosis without myelopathy or radiculopathy, cervical region; M47.816 Spondylosis without myelopathy or radiculopathy, lumbar region; M47.817 Spondylosis without myelopathy or radiculopathy, lumbosacral region; M51.16 Intervertebral disc disorders with radiculopathy, lumbar region; M51.17 Intervertebral disc disorders with radiculopathy, lumbosacral region; I10 Essential (primary) hypertension; E78.00 Pure hypercholesterolemia, unspecified; K21.9 Gastro-esophageal reflux disease without esophagitis; G47.30 Sleep apnea, unspecified; K76.0 Fatty (change of) liver, not elsewhere classified; Z79.891 Long term (current) use of opiate analgesic; Z79.899 Other long term (current) drug therapy; Z88.0 Allergy status to penicillin; Z88.1 Allergy status to other antibiotic agents; Z91.030 Bee allergy status; Z88.8 Allergy status to other drugs, medicaments and biological substances

== ENCOUNTER → 2017-08-03 | Outpatient (CLI) | payer OTHER | LOC: M PAIN 10:30 | DX: M47.812 Spondylosis without myelopathy or radiculopathy, cervical region (principal); M47.816 Spondylosis without myelopathy or radiculopathy, lumbar region; M47.817 Spondylosis without myelopathy or radiculopathy, lumbosacral region; M51.16 Intervertebral disc disorders with radiculopathy, lumbar region; M51.17 Intervertebral disc disorders with radiculopathy, lumbosacral region; I10 Essential (primary) hypertension; Z79.899 Other long term (current) drug therapy; Z88.0 Allergy status to penicillin; Z88.8 Allergy status to other drugs, medicaments and biological substances; Z91.030 Bee allergy status | CPT/HCPCS: G0463 ==

== ENCOUNTER → 2017-08-18 | Outpatient (CLI) | payer OTHER | LOC: M PAIN 10:00 | DX: M47.812 Spondylosis without myelopathy or radiculopathy, cervical region (principal); M47.816 Spondylosis without myelopathy or radiculopathy, lumbar region; M47.817 Spondylosis without myelopathy or radiculopathy, lumbosacral region; M51.16 Intervertebral disc disorders with radiculopathy, lumbar region; M51.17 Intervertebral disc disorders with radiculopathy, lumbosacral region; I10 Essential (primary) hypertension; E78.00 Pure hypercholesterolemia, unspecified; G57.82 Other specified mononeuropathies of left lower limb; Z79.899 Other long term (current) drug therapy; Z88.0 Allergy status to penicillin; Z88.8 Allergy status to other drugs, medicaments and biological substances; Z91.030 Bee allergy status | CPT/HCPCS: G0463 ==

== ENCOUNTER → 2017-10-06 | Outpatient (CLI) | payer OTHER | LOC: M PAIN 09:15 | DX: M47.812 Spondylosis without myelopathy or radiculopathy, cervical region (principal); M47.816 Spondylosis without myelopathy or radiculopathy, lumbar region; M47.817 Spondylosis without myelopathy or radiculopathy, lumbosacral region; M51.16 Intervertebral disc disorders with radiculopathy, lumbar region; M51.17 Intervertebral disc disorders with radiculopathy, lumbosacral region; I10 Essential (primary) hypertension; E78.00 Pure hypercholesterolemia, unspecified; G47.30 Sleep apnea, unspecified; Z79.899 Other long term (current) drug therapy; Z88.0 Allergy status to penicillin; Z88.8 Allergy status to other drugs, medicaments and biological substances; Z91.030 Bee allergy status | CPT/HCPCS: G0463 ==

== ENCOUNTER → 2017-11-10 | Outpatient (CLI) | payer OTHER | LOC: M PAIN 09:00 | DX: G89.29 Other chronic pain (principal); M47.812 Spondylosis without myelopathy or radiculopathy, cervical region; M47.816 Spondylosis without myelopathy or radiculopathy, lumbar region; M47.817 Spondylosis without myelopathy or radiculopathy, lumbosacral region; M51.16 Intervertebral disc disorders with radiculopathy, lumbar region; M51.17 Intervertebral disc disorders with radiculopathy, lumbosacral region; I10 Essential (primary) hypertension; E78.00 Pure hypercholesterolemia, unspecified; K21.9 Gastro-esophageal reflux disease without esophagitis; G47.30 Sleep apnea, unspecified; K76.0 Fatty (change of) liver, not elsewhere classified; Z79.891 Long term (current) use of opiate analgesic; Z79.899 Other long term (current) drug therapy; Z88.0 Allergy status to penicillin; Z88.1 Allergy status to other antibiotic agents; Z91.030 Bee allergy status; Z88.8 Allergy status to other drugs, medicaments and biological substances | CPT/HCPCS: G0463 ==

== ENCOUNTER → 2017-12-22 | Outpatient (CLI) | payer OTHER | LOC: M PAIN 08:45 | DX: M47.812 Spondylosis without myelopathy or radiculopathy, cervical region (principal); M47.816 Spondylosis without myelopathy or radiculopathy, lumbar region; M47.817 Spondylosis without myelopathy or radiculopathy, lumbosacral region; M51.16 Intervertebral disc disorders with radiculopathy, lumbar region; M51.17 Intervertebral disc disorders with radiculopathy, lumbosacral region; I10 Essential (primary) hypertension; E78.00 Pure hypercholesterolemia, unspecified; G47.30 Sleep apnea, unspecified; Z79.899 Other long term (current) drug therapy; Z88.0 Allergy status to penicillin; Z88.6 Allergy status to analgesic agent; Z88.8 Allergy status to other drugs, medicaments and biological substances; Z91.030 Bee allergy status | CPT/HCPCS: G0463 ==

== ENCOUNTER → 2018-02-02 | Outpatient (CLI) | payer OTHER | LOC: M PAIN 09:00 | DX: M47.812 Spondylosis without myelopathy or radiculopathy, cervical region (principal); M47.816 Spondylosis without myelopathy or radiculopathy, lumbar region; M47.817 Spondylosis without myelopathy or radiculopathy, lumbosacral region; M51.16 Intervertebral disc disorders with radiculopathy, lumbar region; M51.17 Intervertebral disc disorders with radiculopathy, lumbosacral region; G89.29 Other chronic pain; I10 Essential (primary) hypertension; E78.00 Pure hypercholesterolemia, unspecified; G47.33 Obstructive sleep apnea (adult) (pediatric); Z79.891 Long term (current) use of opiate analgesic; Z79.899 Other long term (current) drug therapy; Z88.0 Allergy status to penicillin; Z88.8 Allergy status to other drugs, medicaments and biological substances; Z91.030 Bee allergy status | CPT/HCPCS: G0463 ==

== ENCOUNTER → 2018-04-29 | Outpatient (CLI) | payer OTHER | LOC: M PAIN 09:30 | DX: M47.812 Spondylosis without myelopathy or radiculopathy, cervical region (principal); M47.816 Spondylosis without myelopathy or radiculopathy, lumbar region; M47.817 Spondylosis without myelopathy or radiculopathy, lumbosacral region; M51.16 Intervertebral disc disorders with radiculopathy, lumbar region; M51.17 Intervertebral disc disorders with radiculopathy, lumbosacral region; I10 Essential (primary) hypertension; E78.00 Pure hypercholesterolemia, unspecified; K21.9 Gastro-esophageal reflux disease without esophagitis; G47.30 Sleep apnea, unspecified; K76.0 Fatty (change of) liver, not elsewhere classified; Z79.891 Long term (current) use of opiate analgesic; Z79.899 Other long term (current) drug therapy; Z88.0 Allergy status to penicillin; Z88.8 Allergy status to other drugs, medicaments and biological substances; Z91.030 Bee allergy status | CPT/HCPCS: G0463 ==

== ENCOUNTER → 2018-06-09 | Outpatient (CLI) | payer OTHER | LOC: M PAIN 09:15 | DX: M79.10 Myalgia, unspecified site (principal); M54.6 Pain in thoracic spine; I10 Essential (primary) hypertension; E78.00 Pure hypercholesterolemia, unspecified; G47.33 Obstructive sleep apnea (adult) (pediatric); E66.01 Morbid (severe) obesity due to excess calories; Z68.42 Body mass index [BMI] 45.0-49.9, adult; Z79.899 Other long term (current) drug therapy; Z88.0 Allergy status to penicillin; Z88.8 Allergy status to other drugs, medicaments and biological substances; Z91.030 Bee allergy status | CPT/HCPCS: G0463 ==

== ENCOUNTER → 2018-11-12 | Outpatient (CLI) | payer OTHER ==
[~2018-11-12] MED LIST changes: +VITA100018 PO; -VITA100072 PO
--- NOTE | 2018-11-29 00:44 | ECWPNPC ---
PATIENT NAME: CAMILO WHIPPLE : 1965 GENDER: MALE VISIT DATE: 11/12/2018 DISCHARGE DATE: 11/12/18 1201 VISIT LOCKED DATE TIME: PHYSICIAN: NATHAN ORELLANA MD RESOURCE: NATHAN ORELLANA MD REASON FOR APPOINTMENT 1. W/C NECK/SHOULDER MED MANAGEMENT HISTORY OF PRESENT ILLNESS HISTORY OF PRESENT ILLNESS: PAIN THE PATIENT DESCRIBES THE PAIN... 52 YEAR OLD MALE PATIENT WITH A HISTORY OF CHRONIC NECK, THORACIC, AND LOW BACK PAIN. THE PATIENT DESCRIBES THE PAIN ACHING, SORE, TENDER, AND CONTINUOUS WITH A PAIN SCORE OF 4-8/10 DEPENDING ON PHYSICAL ACTIVITY. 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 THE PATIENT IS CURRENTLY USING TRAMADOL 4 TABLETS PER DAY TO AID IN PAIN RELIEF. THE PATIENT SAYS THAT THE USE OF THIS MEDICATION HELPS HIM REMAIN MOBILE AND FUNCTIONAL. PATIENT DENIES UNEXPLAINABLE WEIGHT LOSS, FEVER, CHILLS, NEW CHANGES ON HIS URINARY OR BOWEL CONTROL. FALL RISK SCREENING: SCREENING :NO FALLS REPORTED IN THE LAST YEAR CURRENT MEDICATIONS TAKING ATENOLOL 50 MG TABLET 1 TABLET ORALLY BID TAKING CLARITIN 10 MG TABLET 1 TABLET ORALLY ONCE DAILY NEEDED TAKING VITAMIN D 1000 UNIT TABLET 1 TABLET ORALLY DAILY, NOTES: ONLY TAKES DURING THE WINTER TAKING TRAMADOL HCL 50 MG TABLET 1 TABLET NEEDED ORALLY MAKE TAKE 1-2 Q 6 HRS PRN PAIN MDD=4 NOT-TAKING VITAMIN B COMPLEX 1 TABLET 1 TAB(S) ORALLY DAILY MEDICATION LIST REVIEWED AND RECONCILED WITH THE PATIENT PAST MEDICAL HISTORY HTN HIGH CHOLESTEROL (BORDELINE) GERD SLEEP APNEA 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, LEFT WORSE THAN RIGHT 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 NECK/SHOULDER PAIN ALLERGIES BACLOFEN: RASH, WHEEZING - ALLERGY BEE VENOM: ANAPHYLAXIS - ALLERGY PENICILLIN (FOR ALLERGIES USE ONLY): ANAPHYLAXIS - ALLERGY HYDROCHLOROTHIAZIDE: MIGRAINE - ALLERGY TYLENOL: DYSPNEA, SWELLING - ALLERGY SURGICAL HISTORY THORACIC DECOMPRESSION 2001 LEFT CLAVICLE RESECTION 2001 TONSILLECTOMY/ADENOIDECTOMY 1976 POLYPS REMOVED 2004 COLONOSCOPY 01/2017 FAMILY HISTORY FATHER: 42 YRS, HEART ATTACK, RHEUMATIC FEVER, DIAGNOSED WITH HEART DISEASE MOTHER: ALIVE 68 YRS, HEART ATTACK, HEART DISEASE 1 SON(S) . 1 BROTHER , CAUSE UNKNOWN\NSON-DIABETIC SINCE HE WAS A BABY. SOCIAL HISTORY GENERAL: TOBACCO USE ARE YOU A: NONSMOKER. DIET: LOW FAT. LANGUAGE LANGUAGES SPOKEN:KOREAN DOMESTIC VIOLENCE DO YOU FEEL SAFE IN YOUR ENVIRONMENT?YES NEW PATIENT PAIN DIARY TODAY'S VISITNOTES FROM 0-10, WHAT LEVEL IS YOUR PAIN TODAY?6 RECREATIONAL DRUG USE DRUG USE?NO EXERCISE: WALKS, DAILY, MOST DAYS. 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 N/A HAS THE PATIENT BEEN EDUCATED REGARDING HIS/HER PLAN OF CARE?YES HAS THE PATIENT BEEN EDUCATED REGARDING PAIN, THE RISK FOR PAIN, THE IMPORTANCE OF EFFECTIVE PAIN MANAGEMENT, AND THE PAIN ASSESSMENT PROCESS?YES LATEX QUESTIONNAIRE LATEX ALLERGY : HAVE YOU EVER DEVELOPED ANY TYPE OF REACTION AFTER HANDLING LATEX PRODUCTS SUCH RUBBER GLOVES, CONDOMS, DIAPHRAGMS, BALLOONS, SOCKS, OR UNDERWEAR?NO LATEX ALLERGY : HAVE YOU EVER DEVELOPED ANY TYPE OF REACTION DURING OR AFTER DENTAL APPOINTMENT, VAGINAL/RECTAL EXAMINATION, SURGICAL PROCEDURE, OR ANY OTHER EXPOSURE?NO LATEX RISK : HAVE YOU EVER HAD ANY DIFFICULTY BREATHING OR HIVES AFTER EATING OR HANDLING ANY FRUITS, OR VEGETABLES; SUCH KIWI, BANANAS, STONE FRUITS, OR CHESTNUTSNO LATEX RISK : DO YOU HAVE A PREVIOUS PERSONAL HISTORY OF MORE THAN NINE SURGERIES, SPINA BIFIDA, OR REPEATED CATHERTIZATIONS? NO LATEX RISK : ARE YOU FREQUENTLY EXPOSED TO LATEX PRODUCTS IN YOUR OCCUPATION?NO DATE ASKED : 11/12/2018 ADVANCE DIRECTIVE ADVANCE DIRECTIVE DISCUSSED WITH PATIENT:YES PT HAS HCP, ROXANNE [phone] MORAVIAN [id number] JUDAISM MARITAL STATUS: . ALCOHOL SCREENING DID YOU HAVE A DRINK CONTAINING ALCOHOL IN THE PAST YEAR?NO POINTS0 INTERPRETATIONNEGATIVE OCCUPATION: DISABLED. REVIEWED 04/29/18 1009 LAS06/09/18 0905 REVIEWED WITH PT. ANDREWED WITH PATIENT 11/12/18 1034 JS. HOSPITALIZATION/MAJOR DIAGNOSTIC PROCEDURE SURGERIES INFECTION 1998 REVIEW OF SYSTEMS REVIEWED BY: PROVIDER: NATHAN ORELLANA MD . CONSTITUTIONAL: ANY CHANGE IN YOUR MEDICAL CONDITION? YES, GETS NAUSEOUS ALMOST EVERY TIME HE EATS, DOCTOR THINKS IT HAS TO DO WITH HIS GALLBLADDER. HIDA SCAN SCHEDULED FOR NEXT THURSDAY . CHILLS NO . FEVER NO . INFECTION: DO YOU HAVE NEW INFECTIONS? NO . DO YOU HAVE HISTORY OF MRSA? NO . MUSCULOSKELETAL: ANY NEW PATTERNS OF PAIN OR NUMBNESS? NO . GASTROENTEROLOGY: ANY NEW CHANGE IN BOWEL CONTROL? NO . GENITOURINARY: ANY NEW CHANGE IN BLADDER CONTROL? NO . IS THERE A CHANCE YOU COULD BE ? NO . HEMATOLOGY/LYMPH: DO YOU TAKE ANY BLOOD THINNERS? (FOR EXAMPLE- COUMADIN, PLAVIX, AGGRENOX, PLATEL, PRADAXA, OR XARELTO) NO . WHEN WAS YOUR LAST DOSE? DATE: TIME: . NEUROLOGY: HAVE YOU FALLEN IN THE PAST 12 MONTHS? YES, STATES PRIOR TO LAST VISIT, DISCUSSED AT PREVIOUS VISIT . ANY NEW EXTREMITY NUMBNESS OR WEAKNESS? NO . CARDIOLOGY: DO YOU HAVE A PACEMAKER OR DEFIBRILLATOR? NO . RESPIRATORY: HAVE YOU BEEN SICK IN THE PAST WEEK? NO . FEVER NO . FLU LIKE SYMPTOMS? NO . COUGH NO . INTEGUMENTARY: DO YOU HAVE ANY RASHES OR OPEN SORES? NO . ALLERGIC/IMMUNO: ARE YOU ALLERGIC TO IV DYE? NO . ANY NEW ALLERGIES? NO . PSYCHIATRIC: DO YOU HAVE THOUGHTS OF HURTING YOURSELF OR SOMEONE ELSE? NO . ARE YOU ABUSED, NEGLECTED, OR IN AN UNSAFE ENVIRONMENT? NO . ENDOCRINOLOGY: ARE YOU DIABETIC? NO . OTHER: DO YOU NEED ANY PRESCRIPTIONS? NO . IF YES, PLEASE LIST: ____ . ANY NEW PROBLEMS WITH YOUR MEDICATIONS? NO . WHEN DID YOU LAST EAT? ____ . WHEN DID YOU LAST DRINK? ____ . WHAT DID YOU LAST DRINK? ____ . NAME OF PERSON DRIVING YOU HOME? ____ . DO YOU HAVE ANY OTHER QUESTIONS OR CONCERNS NO . VITAL SIGNS WT 330 LBS, HT 68 IN, BMI 50.17 INDEX, BP 139/92 MM HG, HR 66 /MIN, RR 18 /MIN, TEMP 98.0 F, OXYGEN SAT % 98%, SAFE IN ENV? (Y/N) YES, NA INITIALS AW 1023, REVIEWED BY: JULIA. EXAMINATION GENERAL EXAMINATION: PATIENT IS ALERT O X 3 AND COOPERATIVE. TENDERNESS IN THE NECK AND LOW BACK AREAS. ASSESSMENTS MYALGIA, OTHER SITE - M79.18 (PRIMARY) TREATMENT MYALGIA, OTHER SITE CLINICAL NOTES: WE DISCUSSED SEVERAL ISSUES WITH MR. WHIPPLE'S PAIN MANAGEMENT CASE. THE PATIENT WILL CONTINUE USING THE TRAMADOL FOR THE SOMATIC PAIN. ISTOP _#[id number] WAS REVIEWED. URINE TOXICOLOGY DONE ON 02/02/2018 SHOWS CONCURRENT RESULTS AND I WILL REPEAT IT TODAY. I WILL ALSO PERFORM A PILL COUNTING TODAY. THE PATIENT WILL FOLLOW UP IN 3 MONTHS. INSTRUCTIONS WERE GIVEN, QUESTIONS WERE ANSWERED, PATIENT REPORTS UNDERSTANDING AND AGREES WITH THE PLAN. I, BELKYS ORELLANA, DOCUMENTED THE ABOVE INFORMATION ACTING A SCRIBE FOR DR. ORELLANA. I HAVE REVIEWED THE ABOVE DOCUMENT, WRITTEN BY BELKYS MARI AND I VERIFY THAT IT IS ACCURATE. . PROCEDURES PN WORKMANS' COMP OPINION IN YOUR OPINION, WAS THE INCIDENT THAT THE PATIENT DESCRIBED THE COMPETENT MEDICAL CAUSE OF THIS INJURY/ILLNESS? YES ARE THE PATIENT'S COMPLAINTS CONSISTENT WITH HIS/HER HISTORY OF THE INJURY/ILLNESS? YES IS THE PATIENT'S HISTORY OF THE INJURY/ILLNESS CONSISTENT WITH YOUR OBJECTIVE FINDING? YES WHAT IS THE PERCENTAGE OF TEMPORARY IMPAIRMENT? MARKED = 75% IS THE PATIENT WORKING? NO DOCTOR ON SITE: NATHAN EASLEY MD PROCEDURE CODES FA211 ESTABILISHED PATIENT [facility] FACILITY CHARGE G8427 CURRENT MEDS W/DOSAGES DOCUMENTED G8730 PAIN ASSESS POS TOOL F/U PLAN DOC DISPOSITION & COMMUNICATION FOLLOW UP 3 MONTHS ELECTRONICALLY SIGNED BY NATHAN ORELLANA MD, MD ON 11/28/2018 AT 05:18 PM EDT DISCLAIMER : THIS IS A VISIT SUMMARY EXTRACTED FROM THE [employer] CHART. IT IS NOT A COPY OF THE [employer] PROGRESS NOTE. MTDD
== END ==
LOC: M PAIN 10:15
PROVIDERS: ATTEND Anesthesiology
DX: M79.18 Myalgia, other site (principal); I10 Essential (primary) hypertension; E78.00 Pure hypercholesterolemia, unspecified; G47.30 Sleep apnea, unspecified; E66.01 Morbid (severe) obesity due to excess calories; Z68.43 Body mass index [BMI] 50.0-59.9, adult; Z79.899 Other long term (current) drug therapy; Z88.0 Allergy status to penicillin; Z88.8 Allergy status to other drugs, medicaments and biological substances; Z91.030 Bee allergy status

== ENCOUNTER 2018-12-24 05:52 | Day surgery (SDC) | payer MEDICARE ==
[~2018-12-24] VITALS: Ht 172.7 cm; Wt 148.8 kg
[~2018-12-24 05:52] MED LIST changes: +AMIT10TA PO; +ATEN50TA2 PO; +DICL75TA PO; +ONDA4TAB6 PO; +RA T500C2 PO; +TRAM50TA2 PO; +VITATAB73 PO
[2018-12-24] MEDS ORDERED: LevoFLOXacin IV 500 MG in APPROPRIATE DILUENT 1 EA IV ONE (06:00)
[2018-12-24] MEDS ORDERED: LR 1,000 ML IV ONE (06:00)
[2018-12-24] MEDS ORDERED: CONRAY-60 60% 50ML VIAL (Q9961) As Ordered ONE (07:06)
[2018-12-24] MEDS ORDERED: BUPIVACAINE HCL 0.25% 30 ML VIAL As Ordered ONE (07:06)
[2018-12-24] MEDS ORDERED: LIDOCAINE 1% SDV INJ 30 ML VIAL As Ordered ONE (07:07)
[2018-12-24] MEDS ORDERED: MIDAZOLAM INJ 2 MG/2 ML VIAL (J2250) As Ordered ONE (07:58)
[2018-12-24] MEDS ORDERED: PHENYLephrine HCL 500 MCG/5 ML (100MCG/ML) SYRINGE (J2370) As Ordered ONE (07:58)
[2018-12-24] MEDS ORDERED: dexameTHASONE 4 MG/ML 1ML VIAL (J1100) As Ordered ONE (07:58)
[2018-12-24] MEDS ORDERED: LIDOCAINE 2% INJ 100 MG/5 ML SDV (FOR ANES.) As Ordered ONE (07:58)
[2018-12-24] MEDS ORDERED: ROCURONIUM BROMIDE 50 MG/5 ML VIAL As Ordered ONE ×2 (07:58→08:02)
[2018-12-24] MEDS ORDERED: ONDANSETRON 4MG/2ML VIAL (J2405) As Ordered ONE ×2 (07:58→08:29)
[2018-12-24] MEDS ORDERED: fentaNYL 250 MCG/5 ML INJECTION (J3010) As Ordered ONE (07:58)
[2018-12-24] MEDS ORDERED: ePHEDrine SULFATE 25 MG/5 ML(5MG/ML) SYRINGE As Ordered ONE (07:58)
[2018-12-24] MEDS ORDERED: PROPOFOL 200 MG/20 ML VIAL As Ordered ONE (07:58)
[2018-12-24] MEDS ORDERED: PHENYLEPHRINE INJ 10MG/ML VIAL (J2370) As Ordered ONE (08:06)
[2018-12-24] MEDS ORDERED: SUGAMMADEX SODIUM 500 MG/5 ML VIAL (BRIDION) As Ordered ONE (08:36)
[2018-12-24] MEDS ORDERED: KETOROLAC 60 MG/2 ML VIAL (J1885) As Ordered ONE (08:37)
[2018-12-24] MEDS ORDERED: GLYCOPYRROLATE INJ 0.2 MG/ML 2 ML VIAL As Ordered ONE (08:56)
[2018-12-24] MEDS ORDERED: fentaNYL 100 MCG/2 ML INJECTION (J3010) As Ordered ONE (09:24)
[2018-12-24] MEDS ORDERED: oxyCODONE 5MG TAB As Ordered ONE ×2 (09:42→10:10)
[2018-12-24] MEDS: oxyCODONE 5MG TAB PO PRN ×2 (09:43→10:13)
[2018-12-24] MEDS ORDERED: KETOROLAC 30 MG/ML VIAL (J1885) IV PRN (10:30)
[2018-12-24] MEDS ORDERED: LR 1,000 ML IV SCH (10:30)
[2018-12-24] MEDS ORDERED: oxyCODONE 5MG TAB PO PRN ×2 (10:30)
[2018-12-24] MEDS ORDERED: ONDANSETRON 4MG/2ML VIAL (J2405) IV PRN ×2 (10:30)
[2018-12-24] MEDS ORDERED: fentaNYL 100 MCG/2 ML INJECTION (J3010) IV PRN (10:30)
[2018-12-24 11:10] VITALS: BP 129/60
== END 2018-12-24 11:40 | disposition home or self-care (01) ==
LOC: M SDC 05:52
PROVIDERS: ATTEND Surgery
DX: K80.18 Calculus of gallbladder with other cholecystitis without obstruction (principal); I10 Essential (primary) hypertension; E78.5 Hyperlipidemia, unspecified; G47.30 Sleep apnea, unspecified; E66.01 Morbid (severe) obesity due to excess calories; Z79.899 Other long term (current) drug therapy; Z88.8 Allergy status to other drugs, medicaments and biological substances; Z88.0 Allergy status to penicillin
CPT/HCPCS: 47562; 88304; J1100; J1885; J1956; J2250; J2370; J2405; J3010

== ENCOUNTER → 2019-02-11 | Outpatient (CLI) | payer OTHER ==
[~2019-02-11] MED LIST changes: +METH750T2 PO; -METH75TA PO
--- NOTE | 2019-02-23 01:28 | ECWPNPC ---
PATIENT NAME: CAMILO WHIPPLE : 1965 GENDER: MALE VISIT DATE: 02/11/2019 DISCHARGE DATE: 02/11/19 1007 VISIT LOCKED DATE TIME: PHYSICIAN: NATHAN ORELLANA MD RESOURCE: NATHAN ORELLANA MD REASON FOR APPOINTMENT 1. W/C NECK SHOULDER HISTORY OF PRESENT ILLNESS HISTORY OF PRESENT ILLNESS: PAIN THE PATIENT DESCRIBES THE PAIN... 53 YEAR OLD MALE PATIENT WITH A HISTORY OF CHRONIC NECK AND BACK PAIN. THE PATIENT DESCRIBES THE PAIN ACHING, SORE, TENDER, AND CONTINUOUS WITH A PAIN SCORE OF 4-7/10 DEPENDING ON PHYSICAL ACTIVITY. 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 THE PATIENT SAYS THAT HE HAS DIFFICULTY DOING DAILY ACTIVITY SUCH CLEANING AND WORKING AROUND HIS HOUSE DUE TO THIS PAIN. THE PATIENT SAYS THAT HE CAN ONLY STAND FOR 10 MINUTES BEFORE HE HAS TO SIT DOWN DUE TO THIS PAIN. THE PATIENT IS CURRENTLY USING TRAMADOL 4 TABLETS PER DAY TO AID IN PAIN RELIEF AND SAYS THE USE OF THIS MEDICATION HELPS HIM REMAIN MOBILE AND FUNCTIONAL. PATIENT DENIES UNEXPLAINABLE WEIGHT LOSS, FEVER, CHILLS, NEW CHANGES ON HIS URINARY OR BOWEL CONTROL. FALL RISK SCREENING: SCREENING :NO FALLS REPORTED IN THE LAST YEAR CURRENT MEDICATIONS TAKING ATENOLOL 50 MG TABLET 1 TABLET ORALLY BID TAKING CLARITIN 10 MG TABLET 1 TABLET ORALLY ONCE DAILY NEEDED TAKING VITAMIN D 1000 UNIT TABLET 1 TABLET ORALLY DAILY, NOTES: ONLY TAKES DURING THE WINTER TAKING TRAMADOL HCL 50 MG TABLET 1 TABLET NEEDED ORALLY MAKE TAKE 1-2 Q 6 HRS PRN PAIN MDD=4 NOT-TAKING VITAMIN B COMPLEX 1 TABLET 1 TAB(S) ORALLY DAILY MEDICATION LIST REVIEWED AND RECONCILED WITH THE PATIENT PAST MEDICAL HISTORY HTN HIGH CHOLESTEROL (BORDELINE) GERD SLEEP APNEA 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, LEFT WORSE THAN RIGHT 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 NECK/SHOULDER PAIN ALLERGIES BACLOFEN: RASH, WHEEZING - ALLERGY BEE VENOM: ANAPHYLAXIS - ALLERGY PENICILLIN (FOR ALLERGIES USE ONLY): ANAPHYLAXIS - ALLERGY HYDROCHLOROTHIAZIDE: MIGRAINE - ALLERGY TYLENOL: DYSPNEA, SWELLING - ALLERGY SURGICAL HISTORY THORACIC DECOMPRESSION 2001 LEFT CLAVICLE RESECTION 2001 TONSILLECTOMY/ADENOIDECTOMY 1976 POLYPS REMOVED 2004 COLONOSCOPY 01/2017 GALLBLADDER REMOVAL 12/2018 FAMILY HISTORY FATHER: 42 YRS, HEART ATTACK, RHEUMATIC FEVER, DIAGNOSED WITH HEART DISEASE MOTHER: ALIVE 68 YRS, HEART ATTACK, HEART DISEASE 1 SON(S) . 1 BROTHER , CAUSE UNKNOWN\NSON-DIABETIC SINCE HE WAS A BABY. SOCIAL HISTORY GENERAL: TOBACCO USE ARE YOU A: NONSMOKER. DIET: LOW FAT. LANGUAGE LANGUAGES SPOKEN:[place] DOMESTIC VIOLENCE DO YOU FEEL SAFE IN YOUR ENVIRONMENT?YES NEW PATIENT PAIN DIARY TODAY'S VISITNOTES FROM 0-10, WHAT LEVEL IS YOUR PAIN TODAY?6 RECREATIONAL DRUG USE DRUG USE?NO EXERCISE: WALKS, DAILY, MOST DAYS. 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 N/A HAS THE PATIENT BEEN EDUCATED REGARDING HIS/HER PLAN OF CARE?YES HAS THE PATIENT BEEN EDUCATED REGARDING PAIN, THE RISK FOR PAIN, THE IMPORTANCE OF EFFECTIVE PAIN MANAGEMENT, AND THE PAIN ASSESSMENT PROCESS?YES LATEX QUESTIONNAIRE LATEX ALLERGY : HAVE YOU EVER DEVELOPED ANY TYPE OF REACTION AFTER HANDLING LATEX PRODUCTS SUCH RUBBER GLOVES, CONDOMS, DIAPHRAGMS, BALLOONS, SOCKS, OR UNDERWEAR?NO LATEX ALLERGY : HAVE YOU EVER DEVELOPED ANY TYPE OF REACTION DURING OR AFTER DENTAL APPOINTMENT, VAGINAL/RECTAL EXAMINATION, SURGICAL PROCEDURE, OR ANY OTHER EXPOSURE?NO LATEX RISK : HAVE YOU EVER HAD ANY DIFFICULTY BREATHING OR HIVES AFTER EATING OR HANDLING ANY FRUITS, OR VEGETABLES; SUCH KIWI, BANANAS, STONE FRUITS, OR CHESTNUTSNO LATEX RISK : DO YOU HAVE A PREVIOUS PERSONAL HISTORY OF MORE THAN NINE SURGERIES, SPINA BIFIDA, OR REPEATED CATHERIZATIONS? NO LATEX RISK : ARE YOU FREQUENTLY EXPOSED TO LATEX PRODUCTS IN YOUR OCCUPATION?NO DATE ASKED : 11/12/2018 ADVANCE DIRECTIVE ADVANCE DIRECTIVE DISCUSSED WITH PATIENT:YES PT HAS HCP, ROXANNE [phone] YAZDANISM [id number] MANDAEISM MARITAL STATUS: . ALCOHOL SCREENING DID YOU HAVE A DRINK CONTAINING ALCOHOL IN THE PAST YEAR?NO POINTS0 INTERPRETATIONNEGATIVE OCCUPATION: DISABLED. REVIEWED 04/29/18 1009 LAS06/09/18 0905 REVIEWED WITH PT. ADREVIEWED WITH PATIENT 11/12/18 1034 JSREVIEWED WITH PT 02/11/19 7918 BV. HOSPITALIZATION/MAJOR DIAGNOSTIC PROCEDURE SURGERIES INFECTION 1997 REVIEW OF SYSTEMS REVIEWED BY: PROVIDER: NATHAN ORELLANA MD . CONSTITUTIONAL: ANY CHANGE IN YOUR MEDICAL CONDITION? YES, HAD GALLBLADDER REMOVAL 12/2018 . CHILLS NO . FEVER NO . INFECTION: DO YOU HAVE NEW INFECTIONS? NO . DO YOU HAVE HISTORY OF MRSA? NO . MUSCULOSKELETAL: ANY NEW PATTERNS OF PAIN OR NUMBNESS? NO . GASTROENTEROLOGY: ANY NEW CHANGE IN BOWEL CONTROL? NO . GENITOURINARY: ANY NEW CHANGE IN BLADDER CONTROL? NO . IS THERE A CHANCE YOU COULD BE ? NO . HEMATOLOGY/LYMPH: DO YOU TAKE ANY BLOOD THINNERS? (FOR EXAMPLE- COUMADIN, PLAVIX, AGGRENOX, PLATEL, PRADAXA, OR XARELTO) NO . WHEN WAS YOUR LAST DOSE? DATE: TIME: . NEUROLOGY: HAVE YOU FALLEN IN THE PAST 12 MONTHS? NO . ANY NEW EXTREMITY NUMBNESS OR WEAKNESS? NO . CARDIOLOGY: DO YOU HAVE A PACEMAKER OR DEFIBRILLATOR? NO . RESPIRATORY: HAVE YOU BEEN SICK IN THE PAST WEEK? NO . FEVER NO . FLU LIKE SYMPTOMS? NO . COUGH NO . INTEGUMENTARY: DO YOU HAVE ANY RASHES OR OPEN SORES? NO . ALLERGIC/IMMUNO: ARE YOU ALLERGIC TO IV DYE? NO . ANY NEW ALLERGIES? NO . PSYCHIATRIC: DO YOU HAVE THOUGHTS OF HURTING YOURSELF OR SOMEONE ELSE? NO . ARE YOU ABUSED, NEGLECTED, OR IN AN UNSAFE ENVIRONMENT? NO . ENDOCRINOLOGY: ARE YOU DIABETIC? NO . OTHER: DO YOU NEED ANY PRESCRIPTIONS? NO . IF YES, PLEASE LIST: ____ . ANY NEW PROBLEMS WITH YOUR MEDICATIONS? NO . WHEN DID YOU LAST EAT? ____ . WHEN DID YOU LAST DRINK? ____ . WHAT DID YOU LAST DRINK? ____ . NAME OF PERSON DRIVING YOU HOME? ____ . DO YOU HAVE ANY OTHER QUESTIONS OR CONCERNS NO . VITAL SIGNS WT 328.2 LBS, HT 68 IN, BMI 49.90 INDEX, BP 148/88 MM HG, HR 88 /MIN, RR 18 /MIN, TEMP 97.7 F, OXYGEN SAT % 97%, NA INITIALS AW 0841, REVIEWED BY: BV. EXAMINATION GENERAL EXAMINATION: PATIENT IS ALERT O X 3 AND COOPERATIVE. PATIENT HAS DIFFICULTY STANDING. ANTALGIC GAIT. PATIENT IS LIMPING FROM HIS LEFT LEG. TENDERNESS IN THE CERVICAL AND LOW BACK AREAS IN THE PARASPINAL MUSCLE GROUP. MRI OF THE LUMBAR SPINE DONE ON 09/19/2013 IS SHOWING BULGING DISCS AT MULTIPLE LEVELS. ASSESSMENTS MYALGIA, OTHER SITE - M79.18 (PRIMARY) INTERVERTEBRAL DISC DISORDER WITH RADICULOPATHY OF LUMBAR REGION - M51.16 NECK PAIN - M54.2 LOW BACK PAIN - M54.5 OTHER CHRONIC PAIN - G89.29 TREATMENT MYALGIA, OTHER SITE CLINICAL NOTES: WE DISCUSSED SEVERAL ISSUES WITH MR. WHIPPLE'S PAIN MANAGEMENT CASE. I WOULD LIKE THE PATIENT TO START USING TRAMADOL ER 100MG 2 TABLETS PER DAY IN PLACE OF THE TRAMADOL 50MG TABLETS 4 TIMES PER DAY. ISTOP _#[id number] WAS REVIEWED. URINE TOXICOLOGY DONE ON 11/12/2018 SHOWS CONCURRENT RESULTS. PILL COUNTING DONE ON 11/12/2018 SHOWS CONSISTENCY. THE PATIENT WILL FOLLOW UP WITH A NURSE PRACTITIONER IN 3 MONTHS. I WILL ALSO REFER THE PATIENT TO BALTA DICK TO CONSIDER HAVING HER CONTINUE WITH HIS CARE. INSTRUCTIONS WERE GIVEN, QUESTIONS WERE ANSWERED, PATIENT REPORTS UNDERSTANDING AND AGREES WITH THE PLAN. I, BELKYS ORELLANA, DOCUMENTED THE ABOVE INFORMATION ACTING A SCRIBE FOR DR. ORELLANA. I HAVE REVIEWED THE ABOVE DOCUMENT, WRITTEN BY BELKYS MARI AND I VERIFY THAT IT IS ACCURATE. . OTHERS START TRAMADOL HCL ER TABLET EXTENDED RELEASE 24 HOUR, 100 MG, 1 TABLET, ORALLY, EVERY 12 HOURS (WORKERS COMP), 30 DAYS, 60, REFILLS 0 PROCEDURES PN WORKMANS' COMP OPINION IN YOUR OPINION, WAS THE INCIDENT THAT THE PATIENT DESCRIBED THE COMPETENT MEDICAL CAUSE OF THIS INJURY/ILLNESS? YES ARE THE PATIENT'S COMPLAINTS CONSISTENT WITH HIS/HER HISTORY OF THE INJURY/ILLNESS? YES IS THE PATIENT'S HISTORY OF THE INJURY/ILLNESS CONSISTENT WITH YOUR OBJECTIVE FINDING? YES WHAT IS THE PERCENTAGE OF TEMPORARY IMPAIRMENT? MARKED = 75% IS THE PATIENT WORKING? NO DOCTOR ON SITE: NATAHN EASLEY MD PREVENTIVE MEDICINE PAIN CLINIC TEACHING: MEDICATIONS TRAMADOL ER PRINTED REVIEWED AND GIVEN TO PT. EM. PROCEDURE CODES FA211 ESTABILISHED PATIENT [facility] FACILITY CHARGE G8427 CURRENT MEDS W/DOSAGES DOCUMENTED G8730 PAIN ASSESS POS TOOL F/U PLAN DOC DISPOSITION & COMMUNICATION FOLLOW UP 3 MONTHS W/ CHANCE (REASON: W/C NECK & BACK) ELECTRONICALLY SIGNED BY NATHAN ORELLANA MD, MD ON 02/22/2019 AT 01:10 PM EDT DISCLAIMER : THIS IS A VISIT SUMMARY EXTRACTED FROM THE [employer] CHART. IT IS NOT A COPY OF THE [employer] PROGRESS NOTE. MTDD
== END ==
LOC: M PAIN 08:30
PROVIDERS: ATTEND Anesthesiology
DX: M79.18 Myalgia, other site (principal); M51.16 Intervertebral disc disorders with radiculopathy, lumbar region; M54.2 Cervicalgia; M54.5 Low back pain; G89.29 Other chronic pain; I10 Essential (primary) hypertension; G47.30 Sleep apnea, unspecified; Z88.0 Allergy status to penicillin; Z88.1 Allergy status to other antibiotic agents; Z88.6 Allergy status to analgesic agent; Z88.8 Allergy status to other drugs, medicaments and biological substances; Z91.030 Bee allergy status; E66.01 Morbid (severe) obesity due to excess calories; Z68.42 Body mass index [BMI] 45.0-49.9, adult; Z79.899 Other long term (current) drug therapy

== ENCOUNTER → 2019-05-13 | Outpatient (CLI) | payer OTHER ==
[~2019-05-13] MED LIST changes: +CHOL100029 PO
--- NOTE | 2019-05-19 03:05 | ECWPNPC ---
PATIENT NAME: CAMILO WHIPPLE : 1965 GENDER: MALE VISIT DATE: 05/13/2019 DISCHARGE DATE: 05/13/19930 VISIT LOCKED DATE TIME: PHYSICIAN: CHANCE BALL RESOURCE: CHANCE BALL REASON FOR APPOINTMENT 1. W/C NECK & BACK HISTORY OF PRESENT ILLNESS HISTORY OF PRESENT ILLNESS: PAIN THE PATIENT DESCRIBES THE PAIN... THE PATIENT DESCRIBES THE PAIN... 53 YEAR OLD MALE PATIENT WITH A HISTORY OF CHRONIC NECK AND BACK PAIN. THE PATIENT DESCRIBES THE PAIN ACHING, SORE, TENDER, AND PRESSURE WITH A PAIN SCORE OF 6/10 DEPENDING ON PHYSICAL ACTIVITY. 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 THE PATIENT SAYS THAT HE HAS DIFFICULTY DOING DAILY ACTIVITY SUCH CLEANING AND WORKING AROUND HIS HOUSE DUE TO THIS PAIN. THE PATIENT SAYS THAT HE CAN ONLY STAND FOR 10 MINUTES BEFORE HE HAS TO SIT DOWN DUE TO THIS PAIN. THE PATIENT IS CURRENTLY USING TRAMADOL AID IN PAIN RELIEF AND SAYS THE USE OF THIS MEDICATION HELPS HIM REMAIN MOBILE AND FUNCTIONAL. FALL RISK SCREENING: SCREENING :NO FALLS REPORTED IN THE LAST YEAR CURRENT MEDICATIONS TAKING ATENOLOL 50 MG TABLET 1 TABLET ORALLY BID TAKING CLARITIN 10 MG TABLET 1 TABLET ORALLY ONCE DAILY NEEDED TAKING VITAMIN D 1000 UNIT TABLET 1 TABLET ORALLY DAILY, NOTES: ONLY TAKES DURING THE WINTER TAKING TRAMADOL HCL 50 MG TABLET 1 TABLET NEEDED ORALLY MAKE TAKE 1-2 Q 6 HRS PRN PAIN MDD=4 TAKING MOTRIN IB 200 MG TABLET 2 TABLETS WITH FOOD OR MILK NEEDED ORALLY THREE TIMES A DAY NOT-TAKING TRAMADOL HCL ER 100 MG TABLET EXTENDED RELEASE 24 HOUR 1 TABLET ORALLY EVERY 12 HOURS (WORKERS COMP) NOT-TAKING VITAMIN B COMPLEX 1 TABLET 1 TAB(S) ORALLY DAILY MEDICATION LIST REVIEWED AND RECONCILED WITH THE PATIENT PAST MEDICAL HISTORY HTN HIGH CHOLESTEROL (BORDELINE) GERD SLEEP APNEA 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, LEFT WORSE THAN RIGHT 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 NECK/SHOULDER PAIN ALLERGIES BACLOFEN: RASH, WHEEZING - ALLERGY BEE VENOM: ANAPHYLAXIS - ALLERGY PENICILLIN (FOR ALLERGIES USE ONLY): ANAPHYLAXIS - ALLERGY HYDROCHLOROTHIAZIDE: MIGRAINE - ALLERGY TYLENOL: DYSPNEA, SWELLING - ALLERGY SURGICAL HISTORY THORACIC DECOMPRESSION 2002 LEFT CLAVICLE RESECTION 2001 TONSILLECTOMY/ADENOIDECTOMY 1976 POLYPS REMOVED 2004 COLONOSCOPY 01/2017 GALLBLADDER REMOVAL 12/2018 FAMILY HISTORY FATHER: 42 YRS, HEART ATTACK, RHEUMATIC FEVER, DIAGNOSED WITH UNSPECIFIED HEART DISEASE MOTHER: ALIVE 68 YRS, HEART ATTACK, UNSPECIFIED HEART DISEASE 1 SON(S) . 1 BROTHER , CAUSE UNKNOWN\NSON-DIABETIC SINCE HE WAS A BABY. SOCIAL HISTORY GENERAL: TOBACCO USE ARE YOU A: NONSMOKER. DIET: LOW FAT. LANGUAGE LANGUAGES SPOKEN:AMERICAN DOMESTIC VIOLENCE DO YOU FEEL SAFE IN YOUR ENVIRONMENT?YES NEW PATIENT PAIN DIARY TODAY'S VISITNOTES FROM 0-10, WHAT LEVEL IS YOUR PAIN TODAY?6 RECREATIONAL DRUG USE DRUG USE?NO EXERCISE: WALKS, DAILY, MOST DAYS. 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 N/A HAS THE PATIENT BEEN EDUCATED REGARDING HIS/HER PLAN OF CARE?YES HAS THE PATIENT BEEN EDUCATED REGARDING PAIN, THE RISK FOR PAIN, THE IMPORTANCE OF EFFECTIVE PAIN MANAGEMENT, AND THE PAIN ASSESSMENT PROCESS?YES LATEX QUESTIONNAIRE LATEX ALLERGY : HAVE YOU EVER DEVELOPED ANY TYPE OF REACTION AFTER HANDLING LATEX PRODUCTS SUCH RUBBER GLOVES, CONDOMS, DIAPHRAGMS, BALLOONS, SOCKS, OR UNDERWEAR?NO LATEX ALLERGY : HAVE YOU EVER DEVELOPED ANY TYPE OF REACTION DURING OR AFTER DENTAL APPOINTMENT, VAGINAL/RECTAL EXAMINATION, SURGICAL PROCEDURE, OR ANY OTHER EXPOSURE?NO LATEX RISK : HAVE YOU EVER HAD ANY DIFFICULTY BREATHING OR HIVES AFTER EATING OR HANDLING ANY FRUITS, OR VEGETABLES; SUCH KIWI, BANANAS, STONE FRUITS, OR CHESTNUTSNO LATEX RISK : DO YOU HAVE A PREVIOUS PERSONAL HISTORY OF MORE THAN NINE SURGERIES, SPINA BIFIDA, OR REPEATED CATHERIZATIONS? NO LATEX RISK : ARE YOU FREQUENTLY EXPOSED TO LATEX PRODUCTS IN YOUR OCCUPATION?NO DATE ASKED : 11/12/2018 ADVANCE DIRECTIVE ADVANCE DIRECTIVE DISCUSSED WITH PATIENT:YES PT HAS HCP, ROXANNE [phone] [facility] [id number] RASTAFARI MARITAL STATUS: . ALCOHOL SCREENING DID YOU HAVE A DRINK CONTAINING ALCOHOL IN THE PAST YEAR?NO POINTS0 INTERPRETATIONNEGATIVE OCCUPATION: DISABLED. REVIEWED 04/29/18 1009 LAS06/09/18 0905 REVIEWED WITH PT. ANDREWED WITH PATIENT 11/12/18 1034 JSREVIEWED WITH PT 02/11/19 0855 BVREVIEWED WITH PATIENT 05/13/19 0853 JS. HOSPITALIZATION/MAJOR DIAGNOSTIC PROCEDURE SURGERIES INFECTION 1998 REVIEW OF SYSTEMS REVIEWED BY: PROVIDER: KATELYNN BALL MERCHANDISE COORDINATOR-C . CONSTITUTIONAL: ANY CHANGE IN YOUR MEDICAL CONDITION? NO . CHILLS NO . FEVER NO . INFECTION: DO YOU HAVE NEW INFECTIONS? NO . DO YOU HAVE HISTORY OF MRSA? NO . MUSCULOSKELETAL: ANY NEW PATTERNS OF PAIN OR NUMBNESS? YES, STATES NEW PAIN IN RIGHT LOWER RIBS IN THE FRONT, STARTED ABOUT A MONTH AGO. FELT LIKE SOMEHING WAS RIPPING WHEN GOING TO GET INTO HIS CAR. DISCUSSED WITH PCP, GOING TO GET A CT . GASTROENTEROLOGY: ANY NEW CHANGE IN BOWEL CONTROL? YES, STATES SINCE GALLBLADDER SURGERY HE HAS BEEN GOING MORE OFTEN AND HAS BECOME VERY LOOSE/LIQUIDY . GENITOURINARY: ANY NEW CHANGE IN BLADDER CONTROL? NO . IS THERE A CHANCE YOU COULD BE ? NO . HEMATOLOGY/LYMPH: DO YOU TAKE ANY BLOOD THINNERS? (FOR EXAMPLE- COUMADIN, PLAVIX, AGGRENOX, PLATEL, PRADAXA, OR XARELTO) NO . WHEN WAS YOUR LAST DOSE? DATE: TIME: . NEUROLOGY: HAVE YOU FALLEN IN THE PAST 12 MONTHS? NO . ANY NEW EXTREMITY NUMBNESS OR WEAKNESS? NO . CARDIOLOGY: DO YOU HAVE A PACEMAKER OR DEFIBRILLATOR? NO . RESPIRATORY: HAVE YOU BEEN SICK IN THE PAST WEEK? NO . FEVER NO . FLU LIKE SYMPTOMS? NO . COUGH NO . INTEGUMENTARY: DO YOU HAVE ANY RASHES OR OPEN SORES? NO . ALLERGIC/IMMUNO: ARE YOU ALLERGIC TO IV DYE? NO . ANY NEW ALLERGIES? NO . PSYCHIATRIC: DO YOU HAVE THOUGHTS OF HURTING YOURSELF OR SOMEONE ELSE? NO . ARE YOU ABUSED, NEGLECTED, OR IN AN UNSAFE ENVIRONMENT? NO . ENDOCRINOLOGY: ARE YOU DIABETIC? NO . OTHER: DO YOU NEED ANY PRESCRIPTIONS? NO . IF YES, PLEASE LIST: ____ . ANY NEW PROBLEMS WITH YOUR MEDICATIONS? NO . WHEN DID YOU LAST EAT? ____ . WHEN DID YOU LAST DRINK? ____ . WHAT DID YOU LAST DRINK? ____ . NAME OF PERSON DRIVING YOU HOME? ____ . DO YOU HAVE ANY OTHER QUESTIONS OR CONCERNS NO . VITAL SIGNS WT 328 LBS, HT 68 IN, BMI 49.87 INDEX, BP 134/76 MM HG, HR 66 /MIN, RR 18 /MIN, TEMP 96.3 F, OXYGEN SAT % 97%, SAFE IN ENV? (Y/N) YES, NA INITIALS MO 08:55, REVIEWED BY: JULIA. EXAMINATION GENERAL EXAMINATION: GENERALNO ACUTE DISTRESS, WELL NOURISHED AND HYDRATED. PSYCHAPPROPRIATE MOOD AND AFFECT . LUNGS:CLEAR TO AUSCULTATION BILATERALLY, NO WHEEZES, RHONCHI, RALES. HEART:NO MURMURS, REGULAR RATE AND RHYTHM. ASSESSMENTS INTERVERTEBRAL DISC DISORDER WITH RADICULOPATHY OF LUMBAR REGION - M51.16 (PRIMARY) SPONDYLOSIS OF CERVICAL REGION WITHOUT MYELOPATHY OR RADICULOPATHY - M47.812 TREATMENT INTERVERTEBRAL DISC DISORDER WITH RADICULOPATHY OF LUMBAR REGION CLINICAL NOTES: 53-YEAR-OLD MALE IN FOR CHRONIC PAIN WORKMEN'S COMP. FOLLOW-UP. PATIENT WAS STARTED ON TRAMADOL ER AT LAST CLINIC VISIT AND ADMITS TODAY THAT HE WAS UNABLE TO TOLERATE THAT MEDICATION SO HE WAS SWITCHED BACK TO TRAMADOL IR WHICH HE STATES IS HELPING HIS SYMPTOMS. GIVEN PRESENTING SYMPTOMS AND RESULTS OF PHYSICAL EXAMINATION RECOMMENDED CONTINUATION OF CURRENT MEDICATION REGIMEN WITH FOLLOW-UP IN 3 MONTHS. DISCUSSED PROCEDURES WITH PATIENT AND HE DECLINES THEM AT THIS TIME. PATIENT HAS EXPRESSED UNDERSTANDING OF AND WAS IN AGREEMENT WITH TREATMENT PLAN. GIVEN TIME TO ASK QUESTIONS AND EXPRESS CONCERNS.TRAMADOL ER TO BE DESTROYED TODAY. , ISTOP REGISTRY REVIEWED AND DEMONSTRATES COMPLLIANCE. (REF # [id number] ) BRINGS IN MEDICATIONS WHICH IS APPROPRIATE FOR WHAT WAS DISPENSED. RECENT URINE TOXICOLOGY REVIEWED. NO UNAUTHORIZED MEDICATIONS. NO ILLICIT SUBSTANCES AND PRESCRIBED MEDICATIONS WERE PRESENT. PROCEDURES PN WORKMANS' COMP OPINION IN YOUR OPINION, WAS THE INCIDENT THAT THE PATIENT DESCRIBED THE COMPETENT MEDICAL CAUSE OF THIS INJURY/ILLNESS? YES ARE THE PATIENT'S COMPLAINTS CONSISTENT WITH HIS/HER HISTORY OF THE INJURY/ILLNESS? YES IS THE PATIENT'S HISTORY OF THE INJURY/ILLNESS CONSISTENT WITH YOUR OBJECTIVE FINDING? YES WHAT IS THE PERCENTAGE OF TEMPORARY IMPAIRMENT? MARKED = 75% IS THE PATIENT WORKING? NO DOCTOR ON SITE: NATHAN EASLEY MD PROCEDURE CODES FA211 ESTABILISHED PATIENT [facility] CHARGE DISPOSITION & COMMUNICATION FOLLOW UP 3 MONTHS (REASON: WORKMEN'S COMP. CHRONIC PAIN) ELECTRONICALLY SIGNED BY SHANTA JASSO ON 05/16/2019 AT 08:32 AM EDT DISCLAIMER : THIS IS A VISIT SUMMARY EXTRACTED FROM THE [employer] CHART. IT IS NOT A COPY OF THE [employer] PROGRESS NOTE. LISA
== END ==
LOC: M PAIN 08:45
PROVIDERS: ATTEND Family Medicine
DX: M51.16 Intervertebral disc disorders with radiculopathy, lumbar region (principal); M47.812 Spondylosis without myelopathy or radiculopathy, cervical region; G89.29 Other chronic pain; I10 Essential (primary) hypertension; G47.30 Sleep apnea, unspecified; Z88.0 Allergy status to penicillin; Z88.1 Allergy status to other antibiotic agents; Z88.6 Allergy status to analgesic agent; Z88.8 Allergy status to other drugs, medicaments and biological substances; Z91.030 Bee allergy status; E66.01 Morbid (severe) obesity due to excess calories; Z68.42 Body mass index [BMI] 45.0-49.9, adult; Z79.899 Other long term (current) drug therapy

== ENCOUNTER → 2019-08-12 | Outpatient (CLI) | payer OTHER ==
--- NOTE | 2019-08-16 06:44 | ECWPNPC ---
PATIENT NAME: CAMILO WHIPPLE : 1965 GENDER: MALE VISIT DATE: 08/12/2019 DISCHARGE DATE: 08/12/19926 VISIT LOCKED DATE TIME: PHYSICIAN: CHANCE BALL RESOURCE: CHANCE BALL REASON FOR APPOINTMENT 1. W/C NECK & BACK HISTORY OF PRESENT ILLNESS HISTORY OF PRESENT ILLNESS: PAIN THE PATIENT DESCRIBES THE PAIN... 53-YEAR-OLD MALE IN FOR WORKER'S COMP. CHRONIC PAIN FOLLOW-UP. HE RATES HIS PAIN CURRENTLY AT A 6 OUT OF 10 AND DESCRIBES IT ACHING, BURNING, SORE, TENDER, AND PRESSURE. HE FEELS MEDICATIONS ARE WORKING AND DENIES MED SIDE EFFECTS AT THIS TIME. 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 THE PATIENT SAYS THAT HE HAS DIFFICULTY DOING DAILY ACTIVITY SUCH CLEANING AND WORKING AROUND HIS HOUSE DUE TO THIS PAIN. THE PATIENT SAYS THAT HE CAN ONLY STAND FOR 10 MINUTES BEFORE HE HAS TO SIT DOWN DUE TO THIS PAIN. THE PATIENT IS CURRENTLY USING TRAMADOL AID IN PAIN RELIEF AND SAYS THE USE OF THIS MEDICATION HELPS HIM REMAIN MOBILE AND FUNCTIONAL. FALL RISK SCREENING: SCREENING :NO FALLS REPORTED IN THE LAST YEAR CURRENT MEDICATIONS TAKING ATENOLOL 50 MG TABLET 1 TABLET ORALLY BID TAKING CLARITIN 10 MG TABLET 1 TABLET ORALLY ONCE DAILY NEEDED TAKING VITAMIN D 1000 UNIT TABLET 2 TABLET ORALLY DAILY, NOTES: ONLY TAKES DURING THE WINTER TAKING TRAMADOL HCL 50 MG TABLET 1 TABLET NEEDED ORALLY MAKE TAKE 1-2 Q 6 HRS PRN PAIN MDD=4 TAKING MOTRIN IB 200 MG TABLET 2 TABLETS WITH FOOD OR MILK NEEDED ORALLY THREE TIMES A DAY TAKING SIMVASTATIN 10 MG TABLET 1 TABLET IN THE EVENING ORALLY ONCE A DAY NOT-TAKING TRAMADOL HCL ER 100 MG TABLET EXTENDED RELEASE 24 HOUR 1 TABLET ORALLY EVERY 12 HOURS (WORKERS COMP) NOT-TAKING VITAMIN B COMPLEX 1 TABLET 1 TAB(S) ORALLY DAILY MEDICATION LIST REVIEWED AND RECONCILED WITH THE PATIENT PAST MEDICAL HISTORY HTN HIGH CHOLESTEROL (BORDELINE) GERD SLEEP APNEA 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, LEFT WORSE THAN RIGHT 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 NECK/SHOULDER PAIN ALLERGIES BACLOFEN: RASH, WHEEZING - ALLERGY BEE VENOM: ANAPHYLAXIS - ALLERGY PENICILLIN (FOR ALLERGIES USE ONLY): ANAPHYLAXIS - ALLERGY HYDROCHLOROTHIAZIDE: MIGRAINE - ALLERGY TYLENOL: DYSPNEA, SWELLING - ALLERGY SURGICAL HISTORY THORACIC DECOMPRESSION 2001 LEFT CLAVICLE RESECTION 2001 TONSILLECTOMY/ADENOIDECTOMY 1976 POLYPS REMOVED 2004 COLONOSCOPY 01/2017 GALLBLADDER REMOVAL 12/2018 FAMILY HISTORY FATHER: 42 YRS, HEART ATTACK, RHEUMATIC FEVER, DIAGNOSED WITH UNSPECIFIED HEART DISEASE MOTHER: ALIVE 68 YRS, HEART ATTACK, UNSPECIFIED HEART DISEASE 1 SON(S) . 1 BROTHER , CAUSE UNKNOWN\NSON-DIABETIC SINCE HE WAS A BABY. SOCIAL HISTORY GENERAL: TOBACCO USE ARE YOU A: NONSMOKER. DIET: LOW FAT. LANGUAGE LANGUAGES SPOKEN:LUXEMBOURGER DOMESTIC VIOLENCE DO YOU FEEL SAFE IN YOUR ENVIRONMENT?YES NEW PATIENT PAIN DIARY TODAY'S VISITNOTES FROM 0-10, WHAT LEVEL IS YOUR PAIN TODAY?6 RECREATIONAL DRUG USE DRUG USE?NO EXERCISE: WALKS, DAILY, MOST DAYS. LEARNING BARRIERS / SPECIAL NEEDS BARRIERS TO LEARNING?NO HEARING IMPAIRED?NO VISION IMPAIRED?YES COGNITIVELY IMPAIRED?NO :CORRECTIVE LENSES READING READINESS TO LEARN?YES LEARNING PREFERENCES?YES :TAPES/VIDEOS, DEMONSTRATION/VERBAL INSTRUCTION LEARNING CAPABILITIES PRESENT?YES EMOTIONAL BARRIERS?NO SPECIAL DEVICES?NO COREROOM FOUNDRY LABORER NEEDED?NO PAIN CLINIC PFS, CLERGY, PUBLIC HEALTH REFERRALS PFS REFERRAL NEEDED?NO CLERGY REFERRAL NEEDED?NO PUBLIC HEALTH REFERRAL NEEDED?NO WAS THE PROVIDER NOTIFIED OF ANY PERTINENT INFO?YES N/A HAS THE PATIENT BEEN EDUCATED REGARDING HIS/HER PLAN OF CARE?YES HAS THE PATIENT BEEN EDUCATED REGARDING PAIN, THE RISK FOR PAIN, THE IMPORTANCE OF EFFECTIVE PAIN MANAGEMENT, AND THE PAIN ASSESSMENT PROCESS?YES LATEX QUESTIONNAIRE LATEX ALLERGY : HAVE YOU EVER DEVELOPED ANY TYPE OF REACTION AFTER HANDLING LATEX PRODUCTS SUCH RUBBER GLOVES, CONDOMS, DIAPHRAGMS, BALLOONS, SOCKS, OR UNDERWEAR?NO LATEX ALLERGY : HAVE YOU EVER DEVELOPED ANY TYPE OF REACTION DURING OR AFTER DENTAL APPOINTMENT, VAGINAL/RECTAL EXAMINATION, SURGICAL PROCEDURE, OR ANY OTHER EXPOSURE?NO LATEX RISK : HAVE YOU EVER HAD ANY DIFFICULTY BREATHING OR HIVES AFTER EATING OR HANDLING ANY FRUITS, OR VEGETABLES; SUCH KIWI, BANANAS, STONE FRUITS, OR CHESTNUTSNO LATEX RISK : DO YOU HAVE A PREVIOUS PERSONAL HISTORY OF MORE THAN NINE SURGERIES, SPINA BIFIDA, OR REPEATED CATHERIZATIONS? NO LATEX RISK : ARE YOU FREQUENTLY EXPOSED TO LATEX PRODUCTS IN YOUR OCCUPATION?NO DATE ASKED : 08/12/2019 ADVANCE DIRECTIVE ADVANCE DIRECTIVE DISCUSSED WITH PATIENT:YES PT HAS HCP, ROXANNE [phone] HINDU [id number] ZOROASTRIANISM MARITAL STATUS: . ALCOHOL SCREENING DID YOU HAVE A DRINK CONTAINING ALCOHOL IN THE PAST YEAR?NO POINTS0 INTERPRETATIONNEGATIVE OCCUPATION: DISABLED. REVIEWED 04/29/18 1009 LAS06/09/18 0905 REVIEWED WITH PT. ADREVIEWED WITH PATIENT 11/12/18 1034 JSREVIEWED WITH PT 02/11/19 0855 BVREVIEWED WITH PATIENT 05/13/19 0853 JSREVIEWED WITH PATIENT 08/12/2019 DS. HOSPITALIZATION/MAJOR DIAGNOSTIC PROCEDURE SURGERIES INFECTION 1998 REVIEW OF SYSTEMS REVIEWED BY: PROVIDER: KATELYNN CADENA . CONSTITUTIONAL: ANY CHANGE IN YOUR MEDICAL CONDITION? NO . CHILLS NO . FEVER NO . INFECTION: DO YOU HAVE NEW INFECTIONS? NO . DO YOU HAVE HISTORY OF MRSA? NO . MUSCULOSKELETAL: ANY NEW PATTERNS OF PAIN OR NUMBNESS? NO . GASTROENTEROLOGY: ANY NEW CHANGE IN BOWEL CONTROL? NO . GENITOURINARY: ANY NEW CHANGE IN BLADDER CONTROL? NO . IS THERE A CHANCE YOU COULD BE ? NO . HEMATOLOGY/LYMPH: DO YOU TAKE ANY BLOOD THINNERS? (FOR EXAMPLE- COUMADIN, PLAVIX, AGGRENOX, PLATEL, PRADAXA, OR XARELTO) NO . WHEN WAS YOUR LAST DOSE? DATE: TIME: . NEUROLOGY: HAVE YOU FALLEN IN THE PAST 12 MONTHS? NO . ANY NEW EXTREMITY NUMBNESS OR WEAKNESS? NO . CARDIOLOGY: DO YOU HAVE A PACEMAKER OR DEFIBRILLATOR? NO . RESPIRATORY: HAVE YOU BEEN SICK IN THE PAST WEEK? NO . FEVER NO . FLU LIKE SYMPTOMS? NO . COUGH NO . INTEGUMENTARY: DO YOU HAVE ANY RASHES OR OPEN SORES? NO . ALLERGIC/IMMUNO: ARE YOU ALLERGIC TO IV DYE? NO . ANY NEW ALLERGIES? NO . PSYCHIATRIC: DO YOU HAVE THOUGHTS OF HURTING YOURSELF OR SOMEONE ELSE? NO . ARE YOU ABUSED, NEGLECTED, OR IN AN UNSAFE ENVIRONMENT? NO . ENDOCRINOLOGY: ARE YOU DIABETIC? NO . OTHER: DO YOU NEED ANY PRESCRIPTIONS? YES, TRAMADOL 50MG . IF YES, PLEASE LIST: ____ . ANY NEW PROBLEMS WITH YOUR MEDICATIONS? NO . WHEN DID YOU LAST EAT? ____ . WHEN DID YOU LAST DRINK? ____ . WHAT DID YOU LAST DRINK? ____ . NAME OF PERSON DRIVING YOU HOME? ____ . DO YOU HAVE ANY OTHER QUESTIONS OR CONCERNS NO . VITAL SIGNS WT 331.0 LBS, HT 68 IN, BMI 50.32 INDEX, BP 121/61 MM HG, HR 77 /MIN, RR 18 /MIN, TEMP 97.6 F, OXYGEN SAT % 97, SAFE IN ENV? (Y/N) Y, REVIEWED BY: RAFIQ. EXAMINATION GENERAL EXAMINATION: GENERALNO ACUTE DISTRESS, WELL NOURISHED AND HYDRATED. PSYCHAPPROPRIATE MOOD AND AFFECT . LUNGS:CLEAR TO AUSCULTATION BILATERALLY, NO WHEEZES, RHONCHI, RALES. HEART:NO MURMURS, REGULAR RATE AND RHYTHM. ASSESSMENTS CHRONIC PRESCRIPTION OPIATE USE - Z79.899 (PRIMARY) INTERVERTEBRAL DISC DISORDERS WITH RADICULOPATHY, LUMBOSACRAL REGION - M51.17 TREATMENT CHRONIC PRESCRIPTION OPIATE USE REFILL TRAMADOL HCL ER TABLET EXTENDED RELEASE 24 HOUR, 100 MG, 1 TABLET, ORALLY, EVERY 12 HOURS (WORKERS COMP), 30 DAYS, 60, REFILLS 0 CLINICAL NOTES: 53-YEAR-OLD MALE IN FOR WORKER'S COMP. CHRONIC PAIN FOLLOW-UP. GIVEN PRESENTING SYMPTOMS AND RESULTS OF PHYSICAL EXAMINATION RECOMMENDED CONTINUATION OF CURRENT MEDICATION REGIMEN WITH FOLLOW-UP IN 3 MONTHS. PATIENT HAS EXPRESSED UNDERSTANDING OF AND WAS IN AGREEMENT WITH TREATMENT PLAN. GIVEN TIME TO ASK QUESTIONS AND EXPRESS CONCERNS., ISTOP REGISTRY REVIEWED AND DEMONSTRATES COMPLLIANCE. (REF # [id number] ) BRINGS IN MEDICATIONS WHICH IS APPROPRIATE FOR WHAT WAS DISPENSED. RECENT URINE TOXICOLOGY REVIEWED. NO UNAUTHORIZED MEDICATIONS. NO ILLICIT SUBSTANCES AND PRESCRIBED MEDICATIONS WERE PRESENT. PROCEDURES PN WORKMANS' COMP OPINION IN YOUR OPINION, WAS THE INCIDENT THAT THE PATIENT DESCRIBED THE COMPETENT MEDICAL CAUSE OF THIS INJURY/ILLNESS? YES ARE THE PATIENT'S COMPLAINTS CONSISTENT WITH HIS/HER HISTORY OF THE INJURY/ILLNESS? YES IS THE PATIENT'S HISTORY OF THE INJURY/ILLNESS CONSISTENT WITH YOUR OBJECTIVE FINDING? YES WHAT IS THE PERCENTAGE OF TEMPORARY IMPAIRMENT? MARKED = 75% IS THE PATIENT WORKING? NO DOCTOR ON SITE: NATHAN EASLEY MD PREVENTIVE MEDICINE PAIN CLINIC TEACHING: THE PATIENT HAS BEEN EDUCATED REGARDING PAIN, THE RISK FOR PAIN, THE IMPORTANCE OF EFFECTIVE PAIN MANAGEMENT, AND THE PAIN ASSESSMENT PROCESS. : REVIEWED AND DISCUSSED TREATMENT PLAN WITH PATIENT, PT ACKNOWLEGED UNDERSTANDING. RAFIQ PROCEDURE CODES FA211 ESTABILISHED PATIENT [facility] CHARGE DISPOSITION & COMMUNICATION FOLLOW UP 3 MONTHS (REASON: WORKER'S COMP. BACK PAIN) ELECTRONICALLY SIGNED BY SHANTA JASSO ON 08/15/2019 AT 08:25 AM EST DISCLAIMER : THIS IS A VISIT SUMMARY EXTRACTED FROM THE [employer] CHART. IT IS NOT A COPY OF THE [employer] PROGRESS NOTE. LISA
== END ==
LOC: M PAIN 08:45
PROVIDERS: ATTEND Family Medicine
DX: M51.17 Intervertebral disc disorders with radiculopathy, lumbosacral region (principal); Z79.899 Other long term (current) drug therapy

== ENCOUNTER → 2019-11-10 | Outpatient (CLI) | payer OTHER ==
--- NOTE | 2019-11-11 23:32 | ECWPNPC ---
PATIENT NAME: CAMILO WHIPPLE : 1965 GENDER: MALE VISIT DATE: 11/10/2019 DISCHARGE DATE: 11/10/19 0937 VISIT LOCKED DATE TIME: PHYSICIAN: CHANCE BALL RESOURCE: CAHNCE BALL REASON FOR APPOINTMENT 1. WORKER'S COMP. BACK PAIN-DOES NOT HAVE ZOOM CAPABILITY- 2. [phone] HISTORY OF PRESENT ILLNESS HISTORY OF PRESENT ILLNESS: PAIN THE PATIENT DESCRIBES THE PAIN... PERMISSION REQUESTED AND RECEIVED FROM PATIENT TO PERFORM TELEHEALTH VISIT. 53-YEAR-OLD MALE IN FOR WORKER'S COMP. CHRONIC PAIN FOLLOW-UP. HE RATES HIS PAIN CURRENTLY AT A 6 OUT OF 10 AND DESCRIBES IT ACHING AND BURNING. 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 HE FEELS MEDICATIONS ARE HELPFUL AND DENIES MED SIDE EFFECTS AT THIS TIME. 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 THE PATIENT SAYS THAT HE HAS DIFFICULTY DOING DAILY ACTIVITY SUCH CLEANING AND WORKING AROUND HIS HOUSE DUE TO THIS PAIN. THE PATIENT SAYS THAT HE CAN ONLY STAND FOR 10 MINUTES BEFORE HE HAS TO SIT DOWN DUE TO THIS PAIN. THE PATIENT IS CURRENTLY USING TRAMADOL AID IN PAIN RELIEF AND SAYS THE USE OF THIS MEDICATION HELPS HIM REMAIN MOBILE AND FUNCTIONAL. FALL RISK SCREENING: SCREENING :NO FALLS REPORTED IN THE LAST YEAR CURRENT MEDICATIONS TAKING ATENOLOL 50 MG TABLET 1 TABLET ORALLY BID TAKING CLARITIN 10 MG TABLET 1 TABLET ORALLY ONCE DAILY NEEDED TAKING VITAMIN D 1000 UNIT TABLET 2 TABLET ORALLY DAILY, NOTES: ONLY TAKES DURING THE WINTER TAKING MOTRIN IB 200 MG TABLET 2 TABLETS WITH FOOD OR MILK NEEDED ORALLY THREE TIMES A DAY TAKING SIMVASTATIN 10 MG TABLET 1 TABLET IN THE EVENING ORALLY ONCE A DAY TAKING TRAMADOL HCL 50 MG TABLET 1 TABLET NEEDED ORALLY MAKE TAKE 1-2 Q 6 HRS PRN PAIN MDD=4 TAKING OMEPRAZOLE 40 MG CAPSULE DELAYED RELEASE 1 CAPSULE 30 MINUTES BEFORE MORNING MEAL ORALLY ONCE A DAY TAKING COLACE 100 MG CAPSULE 1 CAP ORALLY TWICE DAILY NOT-TAKING VITAMIN B COMPLEX 1 TABLET 1 TAB(S) ORALLY DAILY MEDICATION LIST REVIEWED AND RECONCILED WITH THE PATIENT PAST MEDICAL HISTORY HTN HIGH CHOLESTEROL (BORDELINE) GERD SLEEP APNEA 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, LEFT WORSE THAN RIGHT 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 NECK/SHOULDER PAIN LOW BACK PAIN ALLERGIES BACLOFEN: RASH, WHEEZING - ALLERGY BEE VENOM: ANAPHYLAXIS - ALLERGY PENICILLIN (FOR ALLERGIES USE ONLY): ANAPHYLAXIS - ALLERGY HYDROCHLOROTHIAZIDE: MIGRAINE - ALLERGY TYLENOL: DYSPNEA, SWELLING - ALLERGY SURGICAL HISTORY THORACIC DECOMPRESSION/BRACHIAL PLEXUS 2001 LEFT CLAVICLE RESECTION 2001 TONSILLECTOMY/ADENOIDECTOMY 1976 POLYPS REMOVED 2004 COLONOSCOPY 01/2017 GALLBLADDER REMOVAL 12/2018 CLAVICLE RESECTION 2001 FAMILY HISTORY FATHER: 42 YRS, HEART ATTACK, RHEUMATIC FEVER, DIAGNOSED WITH UNSPECIFIED HEART DISEASE MOTHER: ALIVE 68 YRS, HEART ATTACK, UNSPECIFIED HEART DISEASE 1 SON(S) . 1 BROTHER , CAUSE UNKNOWN\NSON-DIABETIC SINCE HE WAS A BABY. SOCIAL HISTORY GENERAL: TOBACCO USE ARE YOU A: NONSMOKER. LATEX QUESTIONNAIRE LATEX ALLERGY : HAVE YOU EVER DEVELOPED ANY TYPE OF REACTION AFTER HANDLING LATEX PRODUCTS SUCH RUBBER GLOVES, CONDOMS, DIAPHRAGMS, BALLOONS, SOCKS, OR UNDERWEAR?NO LATEX ALLERGY : HAVE YOU EVER DEVELOPED ANY TYPE OF REACTION DURING OR AFTER DENTAL APPOINTMENT, VAGINAL/RECTAL EXAMINATION, SURGICAL PROCEDURE, OR ANY OTHER EXPOSURE?NO LATEX RISK : HAVE YOU EVER HAD ANY DIFFICULTY BREATHING OR HIVES AFTER EATING OR HANDLING ANY FRUITS, OR VEGETABLES; SUCH KIWI, BANANAS, STONE FRUITS, OR CHESTNUTSNO LATEX RISK : DO YOU HAVE A PREVIOUS PERSONAL HISTORY OF MORE THAN NINE SURGERIES, SPINA BIFIDA, OR REPEATED CATHERIZATIONS? NO LATEX RISK : ARE YOU FREQUENTLY EXPOSED TO LATEX PRODUCTS IN YOUR OCCUPATION?NO DATE ASKED : 11/10/2019 ALCOHOL SCREENING DID YOU HAVE A DRINK CONTAINING ALCOHOL IN THE PAST YEAR?NO POINTS0 INTERPRETATIONNEGATIVE RECREATIONAL DRUG USE DRUG USE?NO ADVENTISM [id number] JEW LANGUAGE LANGUAGES SPOKEN:COOK ISLANDER LEARNING BARRIERS / SPECIAL NEEDS BARRIERS TO LEARNING?NO HEARING IMPAIRED?NO VISION IMPAIRED?YES :CORRECTIVE LENSES READING COGNITIVELY IMPAIRED?NO READINESS TO LEARN?YES LEARNING PREFERENCES?YES :TAPES/VIDEOS, DEMONSTRATION/VERBAL INSTRUCTION LEARNING CAPABILITIES PRESENT?YES EMOTIONAL BARRIERS?NO SPECIAL DEVICES?NO HOGSHEAD ROLLER NEEDED?NO DOMESTIC VIOLENCE DO YOU FEEL SAFE IN YOUR ENVIRONMENT?YES OCCUPATION: DISABLED. DIET: LOW FAT. EXERCISE: WALKS, DAILY, MOST DAYS. MARITAL STATUS: . NEW PATIENT PAIN DIARY TODAY'S VISITNOTES 11/10/19 PATIENT DESCRIBES PAIN :ACHING, BURNING, HAVE IT ALL THE TIME, TENDER, THROBBING, SORE, OTHER PRESSURE LEFT LOWER RIB IN THE FRONT FROM 0-10, WHAT LEVEL IS YOUR PAIN TODAY?6 PRECIPITATING FACTORS JUST THERE CONSTANTLY, YEST. BACK PAIN INCREASED AFTER PICKING UP A SOCK ALLEVIATING FACTORS POSITIONING IMPACT ON FUNCTION LIMITS HIM ON WHAT HE IS ABLE TO DO PAIN CLINIC PFS, CLERGY, PUBLIC HEALTH REFERRALS PFS REFERRAL NEEDED?NO CLERGY REFERRAL NEEDED?NO PUBLIC HEALTH REFERRAL NEEDED?NO HAS THE PATIENT BEEN EDUCATED REGARDING HIS/HER PLAN OF CARE?YES HAS THE PATIENT BEEN EDUCATED REGARDING PAIN, THE RISK FOR PAIN, THE IMPORTANCE OF EFFECTIVE PAIN MANAGEMENT, AND THE PAIN ASSESSMENT PROCESS?YES ADVANCE DIRECTIVE ADVANCE DIRECTIVE DISCUSSED WITH PATIENT:YES 11/10/19 PT. STATES HE HAS HCP- ROXANNE [phone] REVIEWED 04/29/18 1009 LAS06/09/18 0905 REVIEWED WITH PT. ADREVIEWED WITH PATIENT 11/12/18 1034 JSREVIEWED WITH PT 02/11/19 0855 BVREVIEWED WITH PATIENT 05/13/19 0853 JSREVIEWED WITH PATIENT 08/12/2019 DS. HOSPITALIZATION/MAJOR DIAGNOSTIC PROCEDURE SURGERIES INFECTION -GALLBLADDER 1997 REVIEW OF SYSTEMS REVIEWED BY: PROVIDER: KATELYNN BALL GAUGE INSPECTOR-C . CONSTITUTIONAL: ANY CHANGE IN YOUR MEDICAL CONDITION? NO . CHILLS NO . FEVER NO . INFECTION: DO YOU HAVE NEW INFECTIONS? NO . DO YOU HAVE HISTORY OF MRSA? NO . MUSCULOSKELETAL: ANY NEW PATTERNS OF PAIN OR NUMBNESS? YES, THREW HIS BACK OUT YEST WHILE PICKING UP A SOCK THAT HAD FALLEN . GASTROENTEROLOGY: ANY NEW CHANGE IN BOWEL CONTROL? NO . GENITOURINARY: ANY NEW CHANGE IN BLADDER CONTROL? NO . IS THERE A CHANCE YOU COULD BE ? NO . HEMATOLOGY/LYMPH: DO YOU TAKE ANY BLOOD THINNERS? (FOR EXAMPLE- COUMADIN, PLAVIX, AGGRENOX, PLATEL, PRADAXA, OR XARELTO) NO . WHEN WAS YOUR LAST DOSE? DATE: TIME: . NEUROLOGY: HAVE YOU FALLEN IN THE PAST 12 MONTHS? NO . ANY NEW EXTREMITY NUMBNESS OR WEAKNESS? NO . CARDIOLOGY: DO YOU HAVE A PACEMAKER OR DEFIBRILLATOR? NO . RESPIRATORY: HAVE YOU BEEN SICK IN THE PAST WEEK? NO . FEVER NO . FLU LIKE SYMPTOMS? NO . COUGH NO . INTEGUMENTARY: DO YOU HAVE ANY RASHES OR OPEN SORES? NO . ALLERGIC/IMMUNO: ARE YOU ALLERGIC TO IV DYE? NO . ANY NEW ALLERGIES? NO . PSYCHIATRIC: DO YOU HAVE THOUGHTS OF HURTING YOURSELF OR SOMEONE ELSE? NO . ARE YOU ABUSED, NEGLECTED, OR IN AN UNSAFE ENVIRONMENT? NO . ENDOCRINOLOGY: ARE YOU DIABETIC? NO . OTHER: DO YOU NEED ANY PRESCRIPTIONS? NO . IF YES, PLEASE LIST: ____ . ANY NEW PROBLEMS WITH YOUR MEDICATIONS? NO . WHEN DID YOU LAST EAT? ____ . WHEN DID YOU LAST DRINK? ____ . WHAT DID YOU LAST DRINK? ____ . NAME OF PERSON DRIVING YOU HOME? ____ . DO YOU HAVE ANY OTHER QUESTIONS OR CONCERNS NO . EXAMINATION GENERAL EXAMINATION: PSYCH ORIENTED X 3, APPROPRIATE MOOD AND AFFECT. ASSESSMENTS SPONDYLOSIS OF CERVICAL REGION WITHOUT MYELOPATHY OR RADICULOPATHY - M47.812 (PRIMARY) TREATMENT SPONDYLOSIS OF CERVICAL REGION WITHOUT MYELOPATHY OR RADICULOPATHY CLINICAL NOTES: 53-YEAR-OLD MALE IN FOR WORKER'S COMP. CHRONIC PAIN FOLLOW-UP. GIVEN PRESENTING SYMPTOMS RECOMMENDED CONTINUATION OF CURRENT MEDICATION REGIMEN WITH FOLLOW-UP IN CLINIC IN 2 MONTHS. DISCUSSED U TOX RESULTS WITH PATIENT TO INCLUDE THE FACT THAT THE TRAMADOL WAS NOT PRESENT IN PATIENT'S MOST RECENT URINE TOX. PATIENT STATES THAT HE TAKES HIS TRAMADOL ON A SCHEDULED BASIS AND HE IS UNSURE TO WHY THE RESULT CAME BACK NEGATIVE. INFORMED PATIENT WE WOULD POTENTIALLY COLLECT U TOX AT NEXT CLINIC VISIT. PATIENT HAS EXPRESSED UNDERSTANDING OF AND WAS IN AGREEMENT WITH TREATMENT PLAN. GIVEN TIME TO ASK QUESTIONS AND EXPRESS CONCERNS. , ISTOP REGISTRY REVIEWED AND DEMONSTRATES COMPLLIANCE. (REF # [id number] ) BRINGS IN MEDICATIONS WHICH IS APPROPRIATE FOR WHAT WAS DISPENSED. RECENT URINE TOXICOLOGY REVIEWED. NO UNAUTHORIZED MEDICATIONS. NO ILLICIT SUBSTANCES AND PRESCRIBED MEDICATIONS WERE PRESENT. VISIT TO BE BILLED BASED ON TIME SPENT WITH PATIENT. TIME SPENT WITH PATIENT 11 MINUTES. OTHERS NOTES: UNABLE TO DO V/S DUE TO TELEPHONE ENCOUNTER. PROCEDURES PN WORKMANS' COMP OPINION IN YOUR OPINION, WAS THE INCIDENT THAT THE PATIENT DESCRIBED THE COMPETENT MEDICAL CAUSE OF THIS INJURY/ILLNESS? YES ARE THE PATIENT'S COMPLAINTS CONSISTENT WITH HIS/HER HISTORY OF THE INJURY/ILLNESS? YES IS THE PATIENT'S HISTORY OF THE INJURY/ILLNESS CONSISTENT WITH YOUR OBJECTIVE FINDING? YES WHAT IS THE PERCENTAGE OF TEMPORARY IMPAIRMENT? MARKED = 75% IS THE PATIENT WORKING? NO DOCTOR ON SITE: NATHAN EASLEY MD DISPOSITION & COMMUNICATION FOLLOW UP 2 MONTHS (REASON: NECK PAIN, WORKER'S COMP.) ELECTRONICALLY SIGNED BY SHANTA JASSO ON 11/11/2019 AT 08:52 AM EDT DISCLAIMER : THIS IS A VISIT SUMMARY EXTRACTED FROM THE [employer] CHART. IT IS NOT A COPY OF THE [employer] PROGRESS NOTE. LISA
== END ==
LOC: M PAIN 09:30
PROVIDERS: ATTEND Family Medicine
DX: M47.812 Spondylosis without myelopathy or radiculopathy, cervical region (principal); I10 Essential (primary) hypertension; Z79.891 Long term (current) use of opiate analgesic; Z79.899 Other long term (current) drug therapy; Z88.0 Allergy status to penicillin; Z88.8 Allergy status to other drugs, medicaments and biological substances; Z91.030 Bee allergy status

== ENCOUNTER → 2020-01-25 | Outpatient (CLI) | payer OTHER ==
--- NOTE | 2020-01-27 03:37 | ECWPNPC ---
PATIENT NAME: CAMILO WHIPPLE : 1965 GENDER: MALE VISIT DATE: 01/25/2020 DISCHARGE DATE: 01/25/20 1119 VISIT LOCKED DATE TIME: PHYSICIAN: CHANCE BALL RESOURCE: CHANCE BALL REASON FOR APPOINTMENT 1. W/C NECK PAIN HISTORY OF PRESENT ILLNESS GENERAL: 54-YEAR-OLD MALE IN FOR CHRONIC PAIN FOLLOW-UP. HE RATES PAIN CURRENTLY AT A 7 OUT OF 10 AND DESCRIBES IT ACHING, THROBBING, AND CONTINUOUS. HE FEELS MEDICATIONS ARE HELPFUL AND DENIES MED SIDE EFFECTS AT THIS TIME. 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 THE PATIENT SAYS THAT HE HAS DIFFICULTY DOING DAILY ACTIVITY SUCH CLEANING AND WORKING AROUND HIS HOUSE DUE TO THIS PAIN. THE PATIENT SAYS THAT HE CAN ONLY STAND FOR 10 MINUTES BEFORE HE HAS TO SIT DOWN DUE TO THIS PAIN. THE PATIENT IS CURRENTLY USING TRAMADOL AID IN PAIN RELIEF AND SAYS THE USE OF THIS MEDICATION HELPS HIM REMAIN MOBILE AND FUNCTIONAL. FALL RISK SCREENING: SCREENING :NO FALLS REPORTED IN THE LAST YEAR PAIN SCREENING: PATIENT HAS A COMPLAINT OF ACUTE OR CHRONIC PAIN :YES LOCATION OF PAIN: BILA LOW BACK, HIPS, LEFT SHOULDER INTENSITY OF PAIN (SCALE OF 1 TO 10):7 WHAT DOES YOUR PAIN FEEL LIKE:ACHING, CONTINOUS, THROBBING DURATION:CONTINOUS, CONSTANT, ALL DAY PAIN IS INCREASED BY:ACTIVITIES, PROLONGED STANDING GETTING OUT OF BED PAIN IS DECREASED BY: MOVING.HEAT NURSING NOTE: -. CURRENT MEDICATIONS TAKING ATENOLOL 50 MG TABLET 1 TABLET ORALLY BID TAKING CLARITIN 10 MG TABLET 1 TABLET ORALLY ONCE DAILY NEEDED TAKING VITAMIN D 1000 UNIT TABLET 2 TABLET ORALLY DAILY, NOTES: ONLY TAKES DURING THE WINTER TAKING MOTRIN IB 200 MG TABLET 2 TABLETS WITH FOOD OR MILK NEEDED ORALLY THREE TIMES A DAY TAKING SIMVASTATIN 10 MG TABLET 1 TABLET IN THE EVENING ORALLY ONCE A DAY TAKING TRAMADOL HCL 50 MG TABLET 1 TABLET NEEDED ORALLY MAKE TAKE 1-2 Q 6 HRS PRN PAIN MDD=4 NOT-TAKING OMEPRAZOLE 40 MG CAPSULE DELAYED RELEASE 1 CAPSULE 30 MINUTES BEFORE MORNING MEAL ORALLY ONCE A DAY NOT-TAKING COLACE 100 MG CAPSULE 1 CAP ORALLY TWICE DAILY NOT-TAKING VITAMIN B COMPLEX 1 TABLET 1 TAB(S) ORALLY DAILY MEDICATION LIST REVIEWED AND RECONCILED WITH THE PATIENT PAST MEDICAL HISTORY HTN HIGH CHOLESTEROL (BORDELINE) GERD SLEEP APNEA 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, LEFT WORSE THAN RIGHT 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 NECK/SHOULDER PAIN LOW BACK PAIN ALLERGIES BACLOFEN: RASH, WHEEZING - ALLERGY BEE VENOM: ANAPHYLAXIS - ALLERGY PENICILLIN (FOR ALLERGIES USE ONLY): ANAPHYLAXIS - ALLERGY HYDROCHLOROTHIAZIDE: MIGRAINE - SIDE EFFECTS TYLENOL: DYSPNEA, SWELLING - ALLERGY SURGICAL HISTORY THORACIC DECOMPRESSION/BRACHIAL PLEXUS 2002 LEFT CLAVICLE RESECTION 2001 TONSILLECTOMY/ADENOIDECTOMY 1976 POLYPS REMOVED 2004 COLONOSCOPY 01/2017 GALLBLADDER REMOVAL 12/2018 CLAVICLE RESECTION 2001 FAMILY HISTORY FATHER: 42 YRS, HEART ATTACK, RHEUMATIC FEVER, DIAGNOSED WITH UNSPECIFIED HEART DISEASE MOTHER: ALIVE 68 YRS, HEART ATTACK, UNSPECIFIED HEART DISEASE 1 SON(S) . 1 BROTHER , CAUSE UNKNOWN\NSON-DIABETIC SINCE HE WAS A BABY. SOCIAL HISTORY GENERAL: TOBACCO USE ARE YOU A: NONSMOKER. LATEX QUESTIONNAIRE LATEX ALLERGY : HAVE YOU EVER DEVELOPED ANY TYPE OF REACTION AFTER HANDLING LATEX PRODUCTS SUCH RUBBER GLOVES, CONDOMS, DIAPHRAGMS, BALLOONS, SOCKS, OR UNDERWEAR?NO LATEX ALLERGY : HAVE YOU EVER DEVELOPED ANY TYPE OF REACTION DURING OR AFTER DENTAL APPOINTMENT, VAGINAL/RECTAL EXAMINATION, SURGICAL PROCEDURE, OR ANY OTHER EXPOSURE?NO LATEX RISK : HAVE YOU EVER HAD ANY DIFFICULTY BREATHING OR HIVES AFTER EATING OR HANDLING ANY FRUITS, OR VEGETABLES; SUCH KIWI, BANANAS, STONE FRUITS, OR CHESTNUTSNO LATEX RISK : DO YOU HAVE A PREVIOUS PERSONAL HISTORY OF MORE THAN NINE SURGERIES, SPINA BIFIDA, OR REPEATED CATHERIZATIONS? NO LATEX RISK : ARE YOU FREQUENTLY EXPOSED TO LATEX PRODUCTS IN YOUR OCCUPATION?NO DATE ASKED : 01/25/2020 ALCOHOL SCREENING DID YOU HAVE A DRINK CONTAINING ALCOHOL IN THE PAST YEAR?NO POINTS0 INTERPRETATIONNEGATIVE RECREATIONAL DRUG USE DRUG USE?NO CAFFEINE CAFFEINE USE?YES HOW OFTEN AND HOW MUCH? 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 DIET: LOW FAT. EXERCISE: WALKS, DAILY, MOST DAYS. MARITAL STATUS: . NEW PATIENT PAIN DIARY TODAY'S VISITNOTES 11/10/19 PATIENT DESCRIBES PAIN :ACHING, BURNING, HAVE IT ALL THE TIME, TENDER, THROBBING, SORE, OTHER PRESSURE LEFT LOWER RIB IN THE FRONT FROM 0-10, WHAT LEVEL IS YOUR PAIN TODAY?6 PRECIPITATING FACTORS JUST THERE CONSTANTLY, YEST. BACK PAIN INCREASED AFTER PICKING UP A SOCK ALLEVIATING FACTORS POSITIONING IMPACT ON FUNCTION LIMITS HIM ON WHAT HE IS ABLE TO DO PAIN CLINIC PFS, CLERGY, PUBLIC HEALTH REFERRALS PFS REFERRAL NEEDED?NO CLERGY REFERRAL NEEDED?NO PUBLIC HEALTH REFERRAL NEEDED?NO HAS THE PATIENT BEEN EDUCATED REGARDING HIS/HER PLAN OF CARE?YES HAS THE PATIENT BEEN EDUCATED REGARDING PAIN, THE RISK FOR PAIN, THE IMPORTANCE OF EFFECTIVE PAIN MANAGEMENT, AND THE PAIN ASSESSMENT PROCESS?YES ADVANCE DIRECTIVE ADVANCE DIRECTIVE DISCUSSED WITH PATIENT:YES 11/10/19 PT. STATES HE HAS HCP- ROXANNE [phone] REVIEWED 04/29/18 1009 LAS06/09/18 0905 REVIEWED WITH PT. ADREVIEWED WITH PATIENT 11/12/18 1034 JSREVIEWED WITH PT 02/11/19 0855 BVREVIEWED WITH PATIENT 05/13/19 0853 JSREVIEWED WITH PATIENT 08/12/2019 DS. HOSPITALIZATION/MAJOR DIAGNOSTIC PROCEDURE SURGERIES INFECTION -GALLBLADDER 1998 REVIEW OF SYSTEMS CONSTITUTIONAL: ANY RECENT FEVER NO . CHILLS NO . WEIGHT CHANGE OF UNKNOWN REASONS NO . GASTROENTEROLOGY: NEW UNEXPLAINABLE CHANGES IN BOWEL CONTROL NO . CONSTIPATION NO . GENITOURINARY: ANY NEW CHANGE IN BLADDER CONTROL? NO . NEUROLOGY: NEW ONSET DIZZINESS OR NEUROLOGICAL CHANGES NOT MENTIONED NO . NEW NUMBNESS OR PAIN PATTERNS NOT MENTIONED AND PERTINENT TO TODAY'S VISIT NO . CARDIOLOGY: NEW CHEST PRESSURE NO . NEW CHEST PAIN NO . RESPIRATORY: UNEXPLAINABLE COUGH NO . NEW SHORTNESS OF BREATH NO . VITAL SIGNS WT 335 LBS, HT 68 IN, BMI 50.93 INDEX, BP 139/90 MM HG, HR 64 /MIN, RR 20 /MIN, TEMP 97.0 F, OXYGEN SAT % 97%, NA INITIALS SC 10:42. EXAMINATION GENERAL EXAMINATION: GENERALNO ACUTE DISTRESS, WELL NOURISHED AND HYDRATED. PSYCHAPPROPRIATE MOOD AND AFFECT . LUNGS:CLEAR TO AUSCULTATION BILATERALLY, NO WHEEZES, RHONCHI, RALES. HEART:NO MURMURS, REGULAR RATE AND RHYTHM. ASSESSMENTS INTERVERTEBRAL DISC DISORDER WITH RADICULOPATHY OF LUMBOSACRAL REGION - M51.17 (PRIMARY) TREATMENT INTERVERTEBRAL DISC DISORDER WITH RADICULOPATHY OF LUMBOSACRAL REGION CLINICAL NOTES: 54-YEAR-OLD MALE IN FOR CHRONIC PAIN FOLLOW-UP. GIVEN PRESENTING SYMPTOMS AND RESULTS OF PHYSICAL EXAMINATION RECOMMENDED CONTINUATION OF CURRENT MEDICATION REGIMEN WITH FOLLOW-UP IN 3 MONTHS. PATIENT HAS EXPRESSED UNDERSTANDING OF AND WAS IN AGREEMENT WITH TREATMENT PLAN. GIVEN TIME TO ASK QUESTIONS AND EXPRESS CONCERNS. , ISTOP REGISTRY REVIEWED AND DEMONSTRATES COMPLLIANCE. (REF # [id number] ) BRINGS IN MEDICATIONS WHICH IS APPROPRIATE FOR WHAT WAS DISPENSED. RECENT URINE TOXICOLOGY REVIEWED. NO UNAUTHORIZED MEDICATIONS. NO ILLICIT SUBSTANCES AND PRESCRIBED MEDICATIONS WERE PRESENT. PROCEDURES PN WORKMANS' COMP OPINION IN YOUR OPINION, WAS THE INCIDENT THAT THE PATIENT DESCRIBED THE COMPETENT MEDICAL CAUSE OF THIS INJURY/ILLNESS? YES ARE THE PATIENT'S COMPLAINTS CONSISTENT WITH HIS/HER HISTORY OF THE INJURY/ILLNESS? YES IS THE PATIENT'S HISTORY OF THE INJURY/ILLNESS CONSISTENT WITH YOUR OBJECTIVE FINDING? YES WHAT IS THE PERCENTAGE OF TEMPORARY IMPAIRMENT? MARKED = 75% IS THE PATIENT WORKING? NO DOCTOR ON SITE: NATHAN EASLEY MD PROCEDURE CODES FA211 ESTABILISHED PATIENT [facility] FACILITY CHARGE DISPOSITION & COMMUNICATION FOLLOW UP 3 MONTHS (REASON: BACK PAIN) ELECTRONICALLY SIGNED BY SHANTA JASSO ON 01/26/2020 AT 08:46 AM EDT DISCLAIMER : THIS IS A VISIT SUMMARY EXTRACTED FROM THE [employer] CHART. IT IS NOT A COPY OF THE [employer] PROGRESS NOTE. LISA
== END ==
LOC: M PAIN 10:45
PROVIDERS: ATTEND Family Medicine
DX: M51.17 Intervertebral disc disorders with radiculopathy, lumbosacral region (principal)

== ENCOUNTER → 2020-04-26 | Outpatient (CLI) | payer OTHER ==
--- NOTE | 2020-04-27 12:48 | ECWPNPC ---
PATIENT NAME: CAMILO WHIPPLE : 1965 GENDER: MALE VISIT DATE: 04/26/2020 DISCHARGE DATE: 04/26/20 1048 VISIT LOCKED DATE TIME: PHYSICIAN: CHANCE BALL RESOURCE: CHANCE BALL REASON FOR APPOINTMENT 1. W/C BACK PAIN HISTORY OF PRESENT ILLNESS GENERAL: - 54-YEAR-OLD MALE IN FOR WORKER'S COMP. CHRONIC PAIN FOLLOW-UP. HE RATES HIS PAIN CURRENTLY AT A 7 OUT OF 10 AND DESCRIBES IT ACHING, AND THROBBING. HE FEELS MEDICATIONS ARE WORKING WELL AND DENIES MED SIDE EFFECTS AT THIS TIME. 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 THE PATIENT SAYS THAT HE HAS DIFFICULTY DOING DAILY ACTIVITY SUCH CLEANING AND WORKING AROUND HIS HOUSE DUE TO THIS PAIN. THE PATIENT SAYS THAT HE CAN ONLY STAND FOR 10 MINUTES BEFORE HE HAS TO SIT DOWN DUE TO THIS PAIN. THE PATIENT IS CURRENTLY USING TRAMADOL AID IN PAIN RELIEF AND SAYS THE USE OF THIS MEDICATION HELPS HIM REMAIN MOBILE AND FUNCTIONAL. FALL RISK SCREENING: SCREENING :NO FALLS REPORTED IN THE LAST YEAR PAIN SCREENING: PATIENT HAS A COMPLAINT OF ACUTE OR CHRONIC PAIN :YES LOCATION OF PAIN:NECK, LEFT SHOULDER, UPPER BACK, MID BACK, LOW BACK INTENSITY OF PAIN (SCALE OF 1 TO 10):7 WHAT DOES YOUR PAIN FEEL LIKE:ACHING, THROBBING DURATION:CONTINOUS, AWAKENS FROM SLEEP PAIN IS INCREASED BY:ACTIVITIES PAIN IS DECREASED BY:OTHERS PATIENT USES HEAT AND BIOFREEZE TO HELP REDUCE THE PAIN. NURSING NOTE: -. PAIN CENTER INTAKE QUESTIONS: DO YOU HAVE A HISTORY OF MRSA? :NO DO YOU TAKE A BLOOD THINNERS? :NO DO YOU HAVE ANY BLEEDING DISORDERS? :NO ANY NEW NUMBNESS OR WEAKNESS IN YOUR LEGS OR ARMS? :NO ANY PACEMAKER,DEFIBRILLATOR, OR DORSAL COLUMN STIMULATOR? :NO DO YOU HAVE ANY RASHES OR OPEN SORES? :NO ARE YOU ALLERGIC TO IV DYE? :NO ARE YOU DIABETIC? :NO ANY NEW PROBLEMS WITH YOUR MEDICATIONS? :NO HAVE YOU RECEIVED A VACCINE IN THE PAST 30 DAYS? :NO DO YOU PLAN TO RECEIVE A VACCINE IN THE NEXT 21 DAYS? :YES PATIENT PLANS TO GET THE FLU SHOT SOON. DO YOU NEED ANY PRESCRIPTION? :YES TRAMADOL DO YOU TAKE ANY IMMUNOSUPPRESSIVE MEDICATIONS? :NO IS THERE A CHANCE YOU COULD BE ? :NO ARE YOU BREAST FEEDING? :NO CURRENT MEDICATIONS TAKING ATENOLOL 50 MG TABLET 1 TABLET ORALLY BID TAKING CLARITIN 10 MG TABLET 1 TABLET ORALLY ONCE DAILY NEEDED TAKING VITAMIN D 1000 UNIT TABLET 2 TABLET ORALLY DAILY, NOTES: ONLY TAKES DURING THE WINTER TAKING MOTRIN IB 200 MG TABLET 2 TABLETS WITH FOOD OR MILK NEEDED ORALLY THREE TIMES A DAY TAKING SIMVASTATIN 10 MG TABLET 1 TABLET IN THE EVENING ORALLY ONCE A DAY TAKING TRAMADOL HCL 50 MG TABLET 1 TABLET NEEDED ORALLY MAKE TAKE 1-2 Q 6 HRS PRN PAIN MDD=4 TAKING BIOFREEZE TAKING BENGAY NOT-TAKING OMEPRAZOLE 40 MG CAPSULE DELAYED RELEASE 1 CAPSULE 30 MINUTES BEFORE MORNING MEAL ORALLY ONCE A DAY NOT-TAKING COLACE 100 MG CAPSULE 1 CAP ORALLY TWICE DAILY NOT-TAKING VITAMIN B COMPLEX 1 TABLET 1 TAB(S) ORALLY DAILY MEDICATION LIST REVIEWED AND RECONCILED WITH THE PATIENT PAST MEDICAL HISTORY HTN HIGH CHOLESTEROL (BORDELINE) GERD SLEEP APNEA 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, LEFT WORSE THAN RIGHT 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 NECK/SHOULDER PAIN LOW BACK PAIN ALLERGIES BACLOFEN: RASH, WHEEZING - ALLERGY BEE VENOM: ANAPHYLAXIS - ALLERGY PENICILLIN (FOR ALLERGIES USE ONLY): ANAPHYLAXIS - ALLERGY HYDROCHLOROTHIAZIDE: MIGRAINE - SIDE EFFECTS TYLENOL: DYSPNEA, SWELLING - ALLERGY SURGICAL HISTORY THORACIC DECOMPRESSION/BRACHIAL PLEXUS 2001 LEFT CLAVICLE RESECTION 2001 TONSILLECTOMY/ADENOIDECTOMY 1976 POLYPS REMOVED 2004 COLONOSCOPY 01/2017 GALLBLADDER REMOVAL 12/2018 CLAVICLE RESECTION 2001 FAMILY HISTORY FATHER: 42 YRS, HEART ATTACK, RHEUMATIC FEVER, DIAGNOSED WITH UNSPECIFIED HEART DISEASE MOTHER: ALIVE 68 YRS, HEART ATTACK, UNSPECIFIED HEART DISEASE 1 SON(S) . 1 BROTHER , CAUSE UNKNOWN\NSON-DIABETIC SINCE HE WAS A BABY. SOCIAL HISTORY GENERAL: TOBACCO USE ARE YOU A: NONSMOKER. LATEX QUESTIONNAIRE LATEX ALLERGY : HAVE YOU EVER DEVELOPED ANY TYPE OF REACTION AFTER HANDLING LATEX PRODUCTS SUCH RUBBER GLOVES, CONDOMS, DIAPHRAGMS, BALLOONS, SOCKS, OR UNDERWEAR?NO LATEX ALLERGY : HAVE YOU EVER DEVELOPED ANY TYPE OF REACTION DURING OR AFTER DENTAL APPOINTMENT, VAGINAL/RECTAL EXAMINATION, SURGICAL PROCEDURE, OR ANY OTHER EXPOSURE?NO LATEX RISK : HAVE YOU EVER HAD ANY DIFFICULTY BREATHING OR HIVES AFTER EATING OR HANDLING ANY FRUITS, OR VEGETABLES; SUCH KIWI, BANANAS, STONE FRUITS, OR CHESTNUTSNO LATEX RISK : DO YOU HAVE A PREVIOUS PERSONAL HISTORY OF MORE THAN NINE SURGERIES, SPINA BIFIDA, OR REPEATED CATHERIZATIONS? NO LATEX RISK : ARE YOU FREQUENTLY EXPOSED TO LATEX PRODUCTS IN YOUR OCCUPATION?NO DATE ASKED : 04/26/2020 ALCOHOL SCREENING DID YOU HAVE A DRINK CONTAINING ALCOHOL IN THE PAST YEAR?NO POINTS0 INTERPRETATIONNEGATIVE RECREATIONAL DRUG USE DRUG USE?NO CAFFEINE CAFFEINE USE?YES HOW OFTEN AND HOW MUCH? 1 CUP COFFEE DAILY [employer] [id number] LANGUAGE LANGUAGES SPOKEN:MALIAN LEARNING BARRIERS / SPECIAL NEEDS BARRIERS TO LEARNING?NO HEARING IMPAIRED?NO VISION IMPAIRED?YES COGNITIVELY IMPAIRED?NO :CORRECTIVE LENSES READING READINESS TO LEARN?YES LEARNING PREFERENCES?YES :TAPES/VIDEOS, DEMONSTRATION/VERBAL INSTRUCTION LEARNING CAPABILITIES PRESENT?YES EMOTIONAL BARRIERS?NO SPECIAL DEVICES?NO MEDICAL CLAIMS PROCESSOR NEEDED?NO DOMESTIC VIOLENCE DO YOU FEEL SAFE IN YOUR ENVIRONMENT?YES OCCUPATION: DISABLED. DIET: LOW FAT. EXERCISE: WALKS, DAILY, MOST DAYS. MARITAL STATUS: . NEW PATIENT PAIN DIARY TODAY'S VISITNOTES 11/10/19 PATIENT DESCRIBES PAIN :ACHING, BURNING, HAVE IT ALL THE TIME, TENDER, THROBBING, SORE, OTHER PRESSURE LEFT LOWER RIB IN THE FRONT FROM 0-10, WHAT LEVEL IS YOUR PAIN TODAY?6 PRECIPITATING FACTORS JUST THERE CONSTANTLY, YEST. BACK PAIN INCREASED AFTER PICKING UP A SOCK ALLEVIATING FACTORS POSITIONING IMPACT ON FUNCTION LIMITS HIM ON WHAT HE IS ABLE TO DO PAIN CLINIC PFS, CLERGY, PUBLIC HEALTH REFERRALS PFS REFERRAL NEEDED?NO CLERGY REFERRAL NEEDED?NO PUBLIC HEALTH REFERRAL NEEDED?NO HAS THE PATIENT BEEN EDUCATED REGARDING HIS/HER PLAN OF CARE?YES HAS THE PATIENT BEEN EDUCATED REGARDING PAIN, THE RISK FOR PAIN, THE IMPORTANCE OF EFFECTIVE PAIN MANAGEMENT, AND THE PAIN ASSESSMENT PROCESS?YES ADVANCE DIRECTIVE ADVANCE DIRECTIVE DISCUSSED WITH PATIENT:YES 11/10/19 PT. STATES HE HAS HCP- ROXANNE [phone] REVIEWED 04/29/18 1009 LAS06/09/18 0905 REVIEWED WITH PT. ADREVIEWED WITH PATIENT 11/12/18 1034 JSREVIEWED WITH PT 02/11/19 0855 BVREVIEWED WITH PATIENT 05/13/19 0853 JSREVIEWED WITH PATIENT 08/12/2019 DS. HOSPITALIZATION/MAJOR DIAGNOSTIC PROCEDURE SURGERIES INFECTION -GALLBLADDER 1998 REVIEW OF SYSTEMS CONSTITUTIONAL: ANY RECENT FEVER NO . CHILLS NO . WEIGHT CHANGE OF UNKNOWN REASONS NO . GASTROENTEROLOGY: NEW UNEXPLAINABLE CHANGES IN BOWEL CONTROL NO . CONSTIPATION NO . GENITOURINARY: ANY NEW CHANGE IN BLADDER CONTROL? NO . NEUROLOGY: NEW ONSET DIZZINESS OR NEUROLOGICAL CHANGES NOT MENTIONED NO . NEW NUMBNESS OR PAIN PATTERNS NOT MENTIONED AND PERTINENT TO TODAY'S VISIT NO . CARDIOLOGY: NEW CHEST PRESSURE NO . NEW CHEST PAIN NO . RESPIRATORY: UNEXPLAINABLE COUGH NO . NEW SHORTNESS OF BREATH NO . VITAL SIGNS WT 331.2 LBS, HT 68 IN, BMI 50.35 INDEX, BP 146/77 MM HG, HR 66 /MIN, RR 18 /MIN, TEMP 97.0 F, OXYGEN SAT % 97%, NA INITIALS SC 09:59, REVIEWED BY: DIXON WARD CMA. EXAMINATION GENERAL EXAMINATION: GENERALNO ACUTE DISTRESS, WELL NOURISHED AND HYDRATED. PSYCHAPPROPRIATE MOOD AND AFFECT . LUNGS:CLEAR TO AUSCULTATION BILATERALLY, NO WHEEZES, RHONCHI, RALES. HEART:NO MURMURS, REGULAR RATE AND RHYTHM. ASSESSMENTS INTERVERTEBRAL DISC DISORDERS WITH RADICULOPATHY, LUMBOSACRAL REGION - M51.17 (PRIMARY) TREATMENT INTERVERTEBRAL DISC DISORDERS WITH RADICULOPATHY, LUMBOSACRAL REGION CLINICAL NOTES: 54-YEAR-OLD MALE IN FOR CHRONIC PAIN FOLLOW-UP. GIVEN PRESENTING SYMPTOMS RECOMMENDED CONTINUATION OF CURRENT MEDICATION REGIMEN WITH FOLLOW-UP IN 3 MONTHS. PATIENT HAS EXPRESSED UNDERSTANDING OF AND WAS IN AGREEMENT WITH TREATMENT PLAN. GIVEN TIME TO ASK QUESTIONS AND EXPRESS CONCERNS. , ISTOP REGISTRY REVIEWED AND DEMONSTRATES COMPLLIANCE. (REF # [id number] ) BRINGS IN MEDICATIONS WHICH IS APPROPRIATE FOR WHAT WAS DISPENSED. RECENT URINE TOXICOLOGY REVIEWED. NO UNAUTHORIZED MEDICATIONS. NO ILLICIT SUBSTANCES AND PRESCRIBED MEDICATIONS WERE PRESENT. PREVENTIVE MEDICINE PAIN CLINIC TEACHING: THE PATIENT HAS BEEN EDUCATED REGARDING PAIN, THE RISK FOR PAIN, THE IMPORTANCE OF EFFECTIVE PAIN MANAGEMENT, AND THE PAIN ASSESSMENT PROCESS. : REVIEWED MEDICATION AND PATIENT CARE PLAN WITH THE PATIENT. PATIENT EXPRESSED UNDERSTANDING. PATIENT WAS GIVEN A NARCOTIC AGREEMENT AND A URINE UTOX SCREENIG. - DIXON WARD PROCEDURE CODES FA211 ESTABILISHED PATIENT [facility] FACILITY CHARGE DISPOSITION & COMMUNICATION FOLLOW UP 3 MONTHS (REASON: WORKER'S COMP. CHRONIC PAIN) ELECTRONICALLY SIGNED BY SHANTA JASSO ON 04/27/2020 AT 12:47 PM EDT DISCLAIMER : THIS IS A VISIT SUMMARY EXTRACTED FROM THE [employer] CHART. IT IS NOT A COPY OF THE [employer] PROGRESS NOTE. LISA
== END ==
LOC: M PAIN 09:30
PROVIDERS: ATTEND Family Medicine
DX: M51.17 Intervertebral disc disorders with radiculopathy, lumbosacral region (principal); G89.29 Other chronic pain; I10 Essential (primary) hypertension; G47.30 Sleep apnea, unspecified; Z88.0 Allergy status to penicillin; Z88.6 Allergy status to analgesic agent; Z88.8 Allergy status to other drugs, medicaments and biological substances; Z91.030 Bee allergy status; E66.01 Morbid (severe) obesity due to excess calories; Z68.43 Body mass index [BMI] 50.0-59.9, adult; Z79.899 Other long term (current) drug therapy

== ENCOUNTER → 2020-05-09 | Outpatient (CLI) | payer MEDICARE ==
--- NOTE | 2020-05-09 08:56 | REP ---
INDICATION: RUQ PAIN COMPARISON: 07/27/2007 TECHNIQUE: Real time B-mode perez scale ultrasound examination using curved array transducer. FINDINGS: Liver demonstrates diffuse fatty infiltration with 8 mm left lower lobe lobe cyst, 9 mm right lower lobe cyst, and 1.4 x 1.0 x 1.3 cm hypoechoic mass in the right lobe which cannot be further characterized by ultrasound. The main portal vein measures 14 mm diameter and demonstrates normal flow direction. Spleen, and pancreas are normal in contour, size, echogenicity, and overall appearance. No focal splenic or pancreatic lesions are identified. Spleen measures 11.6 x 10.6 x 5.4 cm. Evidence for prior cholecystectomy. Common bile duct measures 6.9 mm diameter. Right kidney measures 12.7 x 6.6 x 6.0 cm and includes 1.8 cm simple cyst without hydronephrosis or nephrolithiasis. Left kidney measures 13.6 x 5.1 x 6.4 cm and appears normal. Limited visualization of the abdominal aorta due to interposed bowel gas is grossly unremarkable. No ascites noted. IMPRESSION: 1. 1.4 cm hypoechoic mass in the inferior aspect of the right hepatic lobe cannot be further characterized by ultrasound. Consider pre and postcontrast CT of the abdomen for further investigation. 2. Simple right renal cyst. <Electronically signed by Javier Bruno > 05/09/20 0832
== END ==
LOC: M RAD 07:36
PROVIDERS: ATTEND Internal Medicine Gastroenterology
DX: R10.9 Unspecified abdominal pain (principal)

== ENCOUNTER → 2020-06-22 | Outpatient (CLI) | payer MEDICARE | LOC: M PLARAD 07:26 | PROVIDERS: ATTEND Internal Medicine Gastroenterology | DX: K76.0 Fatty (change of) liver, not elsewhere classified (principal); R93.3 Abnormal findings on diagnostic imaging of other parts of digestive tract; Z53.9 Procedure and treatment not carried out, unspecified reason ==

== ENCOUNTER → 2020-07-06 | Outpatient (CLI) | payer MEDICARE ==
[~2020-07-06] MED LIST changes: +ISOVUE-370 76% 100ML VIAL As Ordered ONE
--- NOTE | 2020-07-06 15:42 | REP ---
INDICATION: FATTY (CHANGE OF) LIVER, NOT ELSEWHERE CLASSIFIED. 1.4 cm liver lesion seen on recent sonography. COMPARISON: Comparison CT study is from July 27, 2007. Comparison sonography May 09, 2020. TECHNIQUE: Contrast dose: 100 ML of Isovue [address] technique: Helical scanning is acquired and contiguous 3 mm axial images are reformatted. In addition, multiplanar re-formation images are generated in sagittal and coronal imaging projections. Dual phase post-contrast imaging is acquired. FINDINGS: Preliminary digital transition advisor radiograph is unremarkable. Lung bases are clear on axial CT images. No pleural effusion or upper abdominal ascites. The gallbladder is surgically absent. There is minimal diffuse fatty infiltration of the liver. This appears less prominent than on the comparison CT study from 2007. No liver mass lesion is observed in the right lobe or the left lobe to correspond with the ultrasound finding. There is a cyst in the right lobe of the liver near the dome of the diaphragm measuring 8 mm in diameter. This is unchanged from sonography. No other focal liver lesion is seen on CT study. There is a small enhancing nodule in the spleen and 9 mm in diameter consistent with a small splenic hemangioma. No abnormality is noted in the pancreas. Normal adrenal glands are seen. No retroperitoneal mass or adenopathy is seen. There is a cyst in the lower pole of the right kidney peripherally measuring 1.9 cm in diameter. A tiny subcentimeter cyst is seen in the lower pole of the left kidney. Small and large intestinal bowel loops are unremarkable in the abdomen and pelvis. Normal appendix is seen. There are dystrophic calcifications in the prostate. Urinary bladder and seminal vesicles are unremarkable. No abdominal wall defect is seen. No bony destructive lesion is appreciated. Delayed phase post-contrast study shows no filling defect in the collecting system on either side. IMPRESSION: Small bilateral simple renal cortical cysts. Tiny cyst in the liver. No other liver mass lesion seen. Minimal diffuse fatty infiltration of the liver. Post cholecystectomy. No acute abnormality. <Electronically signed by Stanislaw Penn > 07/06/20 7482
== END ==
LOC: M RAD 11:11
PROVIDERS: ATTEND Internal Medicine Gastroenterology
DX: K76.0 Fatty (change of) liver, not elsewhere classified (principal)
CPT/HCPCS: 74178; Q9967

== ENCOUNTER → 2020-08-08 | Outpatient (CLI) | payer OTHER ==
[~2020-08-08] MED LIST changes: -ISOVUE-370 76% 100ML VIAL As Ordered ONE; +METH-1165 PO; -METH750T2 PO
--- NOTE | 2020-08-09 23:12 | ECWPNPC ---
PATIENT NAME: CAMILO WHIPPLE : 1965 GENDER: MALE VISIT DATE: 08/08/2020 DISCHARGE DATE: 08/08/20 1241 VISIT LOCKED DATE TIME: PHYSICIAN: CHANCE BALL RESOURCE: CHANCE BALL REASON FOR APPOINTMENT 1. W/C LOW BACK [phone] HISTORY OF PRESENT ILLNESS PAIN CENTER INTAKE QUESTIONS: PERMISSION REQUESTED AND RECEIVED TO PERFORM TELEPHONE VISIT. 54-YEAR-OLD MALE IN FOR WORKER'S COMP. CHRONIC PAIN FOLLOW-UP. HE FEELS HIS PAIN MEDICATIONS ARE BENEFICIAL HOWEVER HE DOES ADMIT TO PERIODS OF BREAKTHROUGH PAIN. HE RATES PAIN CURRENTLY AT AN 8 OUT OF 10. 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 THE PATIENT SAYS THAT HE HAS DIFFICULTY DOING DAILY ACTIVITY SUCH CLEANING AND WORKING AROUND HIS HOUSE DUE TO THIS PAIN. THE PATIENT SAYS THAT HE CAN ONLY STAND FOR 10 MINUTES BEFORE HE HAS TO SIT DOWN DUE TO THIS PAIN. THE PATIENT IS CURRENTLY USING TRAMADOL AID IN PAIN RELIEF AND SAYS THE USE OF THIS MEDICATION HELPS HIM REMAIN MOBILE AND FUNCTIONAL. GENERAL: -. FALL RISK SCREENING: SCREENING :NO FALLS REPORTED IN THE LAST YEAR PAIN SCREENING: PATIENT HAS A COMPLAINT OF ACUTE OR CHRONIC PAIN :YES LOCATION OF PAIN:NECK, LEFT SHOULDER, LOW BACK INTENSITY OF PAIN (SCALE OF 1 TO 10):8 WHAT DOES YOUR PAIN FEEL LIKE:ACHING, SHARP, TENDER, THROBBING, SORE DURATION:CONSTANT PAIN IS INCREASED BY:ACTIVITIES PAIN IS DECREASED BY:USE OF PAIN MEDICATIONS, OTHERS HEAT, MEDICATION, HOT SHOWERS TREATMENT/MEDICATIONS USED TO MANAGE PAIN:OTC PAIN RELIEVERS, NSAIDS ALEVE AND TRAMADOL NURSING NOTE: -. CURRENT MEDICATIONS TAKING ATENOLOL 50 MG TABLET 1 TABLET ORALLY BID TAKING CLARITIN 10 MG TABLET 1 TABLET ORALLY ONCE DAILY NEEDED TAKING VITAMIN D 1000 UNIT TABLET 2 TABLET ORALLY DAILY, NOTES: ONLY TAKES DURING THE WINTER TAKING MOTRIN IB 200 MG TABLET 2 TABLETS WITH FOOD OR MILK NEEDED ORALLY THREE TIMES A DAY TAKING SIMVASTATIN 10 MG TABLET 1 TABLET IN THE EVENING ORALLY ONCE A DAY TAKING BIOFREEZE TAKING BENGAY TAKING TRAMADOL HCL 50 MG TABLET 1 TABLET NEEDED ORALLY MAKE TAKE 1-2 Q 6 HRS PRN PAIN MDD=4 TAKING DICYCLOMINE HCL 20 MG TABLET 1 TABLET ORALLY THREE TIMES A DAY TAKING METAMUCIL 1 TAB ORAL DIRECTED TAKING CPAP MACHINE NOT-TAKING OMEPRAZOLE 40 MG CAPSULE DELAYED RELEASE 1 CAPSULE 30 MINUTES BEFORE MORNING MEAL ORALLY ONCE A DAY NOT-TAKING COLACE 100 MG CAPSULE 1 CAP ORALLY TWICE DAILY NOT-TAKING VITAMIN B COMPLEX 1 TABLET 1 TAB(S) ORALLY DAILY MEDICATION LIST REVIEWED AND RECONCILED WITH THE PATIENT PAST MEDICAL HISTORY HTN HIGH CHOLESTEROL (BORDELINE) GERD SLEEP APNEA 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 LATEX QUESTIONNAIRE LATEX ALLERGY : HAVE YOU EVER DEVELOPED ANY TYPE OF REACTION AFTER HANDLING LATEX PRODUCTS SUCH RUBBER GLOVES, CONDOMS, DIAPHRAGMS, BALLOONS, SOCKS, OR UNDERWEAR?NO LATEX ALLERGY : HAVE YOU EVER DEVELOPED ANY TYPE OF REACTION DURING OR AFTER DENTAL APPOINTMENT, VAGINAL/RECTAL EXAMINATION, SURGICAL PROCEDURE, OR ANY OTHER EXPOSURE?NO LATEX RISK : HAVE YOU EVER HAD ANY DIFFICULTY BREATHING OR HIVES AFTER EATING OR HANDLING ANY FRUITS, OR VEGETABLES; SUCH KIWI, BANANAS, STONE FRUITS, OR CHESTNUTSNO LATEX RISK : DO YOU HAVE A PREVIOUS PERSONAL HISTORY OF MORE THAN NINE SURGERIES, SPINA BIFIDA, OR REPEATED CATHERIZATIONS? NO LATEX RISK : ARE YOU FREQUENTLY EXPOSED TO LATEX PRODUCTS IN YOUR OCCUPATION?NO DATE ASKED : 08/08/2020 ALCOHOL SCREENING DID YOU HAVE A DRINK CONTAINING ALCOHOL IN THE PAST YEAR?NO POINTS0 INTERPRETATIONNEGATIVE RECREATIONAL DRUG USE DRUG USE?NO CAFFEINE CAFFEINE USE?YES HOW OFTEN AND HOW MUCH? 1 CUP COFFEE DAILY RASTAFARIAN [id number] CHEONDOISM LANGUAGE LANGUAGES SPOKEN:CYMRAES LEARNING BARRIERS / SPECIAL NEEDS BARRIERS TO LEARNING?NO HEARING IMPAIRED?NO VISION IMPAIRED?YES :CORRECTIVE LENSES READING COGNITIVELY IMPAIRED?NO READINESS TO LEARN?YES LEARNING PREFERENCES?YES :TAPES/VIDEOS, DEMONSTRATION/VERBAL INSTRUCTION LEARNING CAPABILITIES PRESENT?YES EMOTIONAL BARRIERS?NO SPECIAL DEVICES?NO DIRECTOR OF COUNSELING NEEDED?NO DOMESTIC VIOLENCE DO YOU FEEL SAFE IN YOUR ENVIRONMENT?YES OCCUPATION: DISABLED. DIET: LOW FAT. EXERCISE: WALKS, DAILY, MOST DAYS. MARITAL STATUS: . TODAY'S VISITNOTES 11/10/19 PATIENT DESCRIBES PAIN :ACHING, BURNING, HAVE IT ALL THE TIME, TENDER, THROBBING, SORE, OTHER PRESSURE LEFT LOWER RIB IN THE FRONT FROM 0-10, WHAT LEVEL IS YOUR PAIN TODAY?6 PRECIPITATING FACTORS JUST THERE CONSTANTLY, YEST. BACK PAIN INCREASED AFTER PICKING UP A SOCK ALLEVIATING FACTORS POSITIONING IMPACT ON FUNCTION LIMITS HIM ON WHAT HE IS ABLE TO DO - PFS REFERRAL NEEDED?NO CLERGY REFERRAL NEEDED?NO PUBLIC HEALTH REFERRAL NEEDED?NO HAS THE PATIENT BEEN EDUCATED REGARDING HIS/HER PLAN OF CARE?YES HAS THE PATIENT BEEN EDUCATED REGARDING PAIN, THE RISK FOR PAIN, THE IMPORTANCE OF EFFECTIVE PAIN MANAGEMENT, AND THE PAIN ASSESSMENT PROCESS?YES ADVANCE DIRECTIVE ADVANCE DIRECTIVE DISCUSSED WITH PATIENT:YES 11/10/19 PT. STATES HE HAS HCP- ROXANNE [phone] REVIEWED 04/29/18 1009 LAS06/09/18 0905 REVIEWED WITH PT. ADREVIEWED WITH PATIENT 11/12/18 1034 JSREVIEWED WITH PT 02/11/19 0855 BVREVIEWED WITH PATIENT 05/13/19 0853 JSREVIEWED WITH PATIENT 08/12/2019 DS. REVIEW OF SYSTEMS CONSTITUTIONAL: ANY RECENT FEVER NO . CHILLS NO . WEIGHT CHANGE OF UNKNOWN REASONS NO . GASTROENTEROLOGY: NEW UNEXPLAINABLE CHANGES IN BOWEL CONTROL NO . CONSTIPATION NO . GENITOURINARY: ANY NEW CHANGE IN BLADDER CONTROL? NO . NEUROLOGY: NEW ONSET DIZZINESS OR NEUROLOGICAL CHANGES NOT MENTIONED NO . NEW NUMBNESS OR PAIN PATTERNS NOT MENTIONED AND PERTINENT TO TODAY'S VISIT NO . CARDIOLOGY: NEW CHEST PRESSURE NO . NEW CHEST PAIN NO . RESPIRATORY: UNEXPLAINABLE COUGH NO . NEW SHORTNESS OF BREATH NO . VITAL SIGNS WT 331.2 LBS, WT-KG 0 KG, HT 68 IN, BMI 50.35 INDEXVITALS COULD NOT BE OBTAINED. VIRTUAL VISIT. JOAN OGLESBY MA. EXAMINATION GENERAL EXAMINATION: PSYCHAPPROPRIATE MOOD AND AFFECT , ORIENTED X 3. ASSESSMENTS INTERVERTEBRAL DISC DISORDER WITH RADICULOPATHY OF LUMBOSACRAL REGION - M51.17 (PRIMARY) TREATMENT INTERVERTEBRAL DISC DISORDER WITH RADICULOPATHY OF LUMBOSACRAL REGION REFILL TRAMADOL HCL TABLET, 50 MG, 1 TABLET NEEDED, ORALLY, MAKE TAKE 1-2 Q 6 HRS PRN PAIN MDD=5, 30 DAY(S), 140, REFILLS 3 NOTES: 54-YEAR-OLD MALE IN FOR WORKER'S COMP. CHRONIC PAIN FOLLOW-UP. GIVEN PRESENTING SYMPTOMS RECOMMEND INCREASING TRAMADOL TO AN MDD OF 5 TABLETS A DAY AND A QUANTITY OF 140 A MONTH. PATIENT IS AWARE PRESCRIPTION DOES NOT ALLOW FOR 5 TABLETS EVERY DAY AND HE EXPRESSED UNDERSTANDING. PATIENT HAS EXPRESSED UNDERSTANDING OF AND WAS IN AGREEMENT WITH TREATMENT PLAN. GIVEN TIME TO ASK QUESTIONS AND EXPRESS CONCERNS. , ISTOP REGISTRY REVIEWED AND DEMONSTRATES COMPLLIANCE. (REF # [id number] ) BRINGS IN MEDICATIONS WHICH IS APPROPRIATE FOR WHAT WAS DISPENSED. RECENT URINE TOXICOLOGY REVIEWED. NO UNAUTHORIZED MEDICATIONS. NO ILLICIT SUBSTANCES AND PRESCRIBED MEDICATIONS WERE PRESENT. VISIT PERFORMED VIA TELEPHONE. TIME SPENT WITH PATIENT 11 MINUTES. PROCEDURES PN WORKMANS' COMP OPINION IN YOUR OPINION, WAS THE INCIDENT THAT THE PATIENT DESCRIBED THE COMPETENT MEDICAL CAUSE OF THIS INJURY/ILLNESS? YES ARE THE PATIENT'S COMPLAINTS CONSISTENT WITH HIS/HER HISTORY OF THE INJURY/ILLNESS? YES IS THE PATIENT'S HISTORY OF THE INJURY/ILLNESS CONSISTENT WITH YOUR OBJECTIVE FINDING? YES WHAT IS THE PERCENTAGE OF TEMPORARY IMPAIRMENT? MARKED = 75% IS THE PATIENT WORKING? NO DOCTOR ON SITE: NATHAN EASLEY MD DISPOSITION & COMMUNICATION FOLLOW UP 2 MONTHS (REASON: WORKER'S COMP. CHRONIC PAIN) ELECTRONICALLY SIGNED BY SHANTA JASSO ON 08/09/2020 AT 04:00 PM EST DISCLAIMER : THIS IS A VISIT SUMMARY EXTRACTED FROM THE [employer] CHART. IT IS NOT A COPY OF THE [employer] PROGRESS NOTE. LISA
== END ==
LOC: M PAIN 10:15
PROVIDERS: ATTEND Family Medicine
DX: M51.17 Intervertebral disc disorders with radiculopathy, lumbosacral region (principal); G89.29 Other chronic pain; G47.30 Sleep apnea, unspecified; Z88.0 Allergy status to penicillin; Z88.6 Allergy status to analgesic agent; Z88.8 Allergy status to other drugs, medicaments and biological substances; Z91.030 Bee allergy status; Z79.899 Other long term (current) drug therapy

== ENCOUNTER → 2020-10-19 | Outpatient (CLI) | payer OTHER ==
[~2020-10-19] MED LIST changes: -AMIT10TA PO; +AMIT10TA7 PO
--- NOTE | 2020-10-23 00:46 | ECWPNPC ---
PATIENT NAME: CAMILO WHIPPLE : 1965 GENDER: MALE VISIT DATE: 10/19/2020 DISCHARGE DATE: 10/19/20 1046 VISIT LOCKED DATE TIME: PHYSICIAN: CHANCE BALL RESOURCE: CHANCE BALL REASON FOR APPOINTMENT 1. CHRONIC PAIN HISTORY OF PRESENT ILLNESS DEPRESSION SCREENING: PHQ-2 (2015 EDITION) LITTLE INTEREST OR PLEASURE IN DOING THINGS?NOT AT ALL FEELING DOWN, DEPRESSED, OR HOPELESS?NOT AT ALL TOTAL SCORE0 54-YEAR-OLD MALE IN FOR WORKER'S COMP. CHRONIC PAIN FOLLOW-UP. HE RATES HIS PAIN CURRENTLY AT A 6 OUT OF 10 AND DESCRIBES IT ACHING, CONTINUOUS, SHARP, THROBBING, AND SHOOTING. PATIENT FEELS MEDICATIONS ARE HELPFUL AND DENIES MED SIDE EFFECTS AT THIS TIME. 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 THE PATIENT SAYS THAT HE HAS DIFFICULTY DOING DAILY ACTIVITY SUCH CLEANING AND WORKING AROUND HIS HOUSE DUE TO THIS PAIN. THE PATIENT SAYS THAT HE CAN ONLY STAND FOR 10 MINUTES BEFORE HE HAS TO SIT DOWN DUE TO THIS PAIN. THE PATIENT IS CURRENTLY USING TRAMADOL AID IN PAIN RELIEF AND SAYS THE USE OF THIS MEDICATION HELPS HIM REMAIN MOBILE AND FUNCTIONAL. GENERAL: -. FALL RISK SCREENING: SCREENING ONE FALL REPORTED IN THE LAST YEAR WITH INJURY. PATIENT DID NOT SEEK IMMEDIATE MEDICAL TREATMENT.. PAIN SCREENING: PATIENT HAS A COMPLAINT OF ACUTE OR CHRONIC PAIN :YES LOCATION OF PAIN:NECK, LEFT SHOULDER, UPPER BACK, MID BACK, LOW BACK INTENSITY OF PAIN (SCALE OF 1 TO 10):6 WHAT DOES YOUR PAIN FEEL LIKE:ACHING, CONTINOUS, SHARP, THROBBING, SHOOTING DURATION:CONTINOUS, AWAKENS FROM SLEEP PAIN IS INCREASED BY:ACTIVITIES, PROLONGED STANDING PAIN IS DECREASED BY:USE OF PAIN MEDICATIONS, SITTING, OTHERS HEAT, HOT SHOWERS NURSING NOTE: -. PAIN CENTER INTAKE QUESTIONS: DO YOU HAVE A HISTORY OF MRSA? :NO DO YOU TAKE A BLOOD THINNERS? :NO DO YOU HAVE ANY BLEEDING DISORDERS? :NO ANY NEW NUMBNESS OR WEAKNESS IN YOUR LEGS OR ARMS? :NO ANY PACEMAKER,DEFIBRILLATOR, OR DORSAL COLUMN STIMULATOR? :NO DO YOU HAVE ANY RASHES OR OPEN SORES? :NO ARE YOU ALLERGIC TO IV DYE? :NO ARE YOU DIABETIC? :NO ANY NEW PROBLEMS WITH YOUR MEDICATIONS? :NO HAVE YOU RECEIVED A VACCINE IN THE PAST 30 DAYS? :NO DO YOU PLAN TO RECEIVE A VACCINE IN THE NEXT 21 DAYS? :YES IF SO WHAT VACCINE AND WHEN? WOULD LIKE THE COVID VACCINATION IF AVAILABLE AT THE [facility] DO YOU NEED ANY PRESCRIPTION? :YES TRAMADOL DO YOU TAKE ANY IMMUNOSUPPRESSIVE MEDICATIONS? :NO DO YOU HAVE ANY KIDNEY OR LIVER DISEASE? :YES LIVER DISEASE IS THERE A CHANCE YOU COULD BE ? :NO ARE YOU BREAST FEEDING? :NO CURRENT MEDICATIONS TAKING ATENOLOL 50 MG TABLET 1 TABLET ORALLY BID TAKING CLARITIN 10 MG TABLET 1 TABLET ORALLY ONCE DAILY NEEDED TAKING VITAMIN D 1000 UNIT TABLET 2 TABLET ORALLY DAILY, NOTES: ONLY TAKES DURING THE WINTER TAKING MOTRIN IB 200 MG TABLET 2 TABLETS WITH FOOD OR MILK NEEDED ORALLY THREE TIMES A DAY TAKING SIMVASTATIN 10 MG TABLET 1 TABLET IN THE EVENING ORALLY ONCE A DAY TAKING BIOFREEZE TAKING BENGAY TAKING DICYCLOMINE HCL 20 MG TABLET 1 TABLET ORALLY THREE TIMES A DAY TAKING METAMUCIL 1 TAB ORAL DIRECTED TAKING CPAP MACHINE TAKING TRAMADOL HCL 50 MG TABLET 1 TABLET NEEDED ORALLY MAKE TAKE 1-2 Q 6 HRS PRN PAIN MDD=5 UNKNOWN OMEPRAZOLE 40 MG CAPSULE DELAYED RELEASE 1 CAPSULE 30 MINUTES BEFORE MORNING MEAL ORALLY ONCE A DAY UNKNOWN COLACE 100 MG CAPSULE 1 CAP ORALLY TWICE DAILY UNKNOWN VITAMIN B COMPLEX 1 TABLET 1 TAB(S) ORALLY DAILY MEDICATION LIST REVIEWED AND RECONCILED WITH THE PATIENT PAST MEDICAL HISTORY HTN HIGH CHOLESTEROL (BORDELINE) GERD SLEEP APNEA 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 LATEX QUESTIONNAIRE LATEX ALLERGY : HAVE YOU EVER DEVELOPED ANY TYPE OF REACTION AFTER HANDLING LATEX PRODUCTS SUCH RUBBER GLOVES, CONDOMS, DIAPHRAGMS, BALLOONS, SOCKS, OR UNDERWEAR?NO LATEX ALLERGY : HAVE YOU EVER DEVELOPED ANY TYPE OF REACTION DURING OR AFTER DENTAL APPOINTMENT, VAGINAL/RECTAL EXAMINATION, SURGICAL PROCEDURE, OR ANY OTHER EXPOSURE?NO LATEX RISK : HAVE YOU EVER HAD ANY DIFFICULTY BREATHING OR HIVES AFTER EATING OR HANDLING ANY FRUITS, OR VEGETABLES; SUCH KIWI, BANANAS, STONE FRUITS, OR CHESTNUTSNO LATEX RISK : DO YOU HAVE A PREVIOUS PERSONAL HISTORY OF MORE THAN NINE SURGERIES, SPINA BIFIDA, OR REPEATED CATHERIZATIONS? NO LATEX RISK : ARE YOU FREQUENTLY EXPOSED TO LATEX PRODUCTS IN YOUR OCCUPATION?NO DATE ASKED : 10/19/2020 ALCOHOL SCREENING DID YOU HAVE A DRINK CONTAINING ALCOHOL IN THE PAST YEAR?NO POINTS0 INTERPRETATIONNEGATIVE RECREATIONAL DRUG USE DRUG USE?NO CAFFEINE CAFFEINE USE?YES HOW OFTEN AND HOW MUCH? 1 CUP COFFEE DAILY SCIENTOLOGIST [id number] [employer]ENTEC[employer] LANGUAGE LANGUAGES SPOKEN:KHMER LEARNING BARRIERS / SPECIAL NEEDS BARRIERS TO LEARNING?NO HEARING IMPAIRED?NO VISION IMPAIRED?YES :CORRECTIVE LENSES READING COGNITIVELY IMPAIRED?NO READINESS TO LEARN?YES LEARNING PREFERENCES?YES :TAPES/VIDEOS, DEMONSTRATION/VERBAL INSTRUCTION LEARNING CAPABILITIES PRESENT?YES EMOTIONAL BARRIERS?NO SPECIAL DEVICES?NO PERFORMANCE INSTRUCTOR NEEDED?NO DOMESTIC VIOLENCE DO YOU FEEL SAFE IN YOUR ENVIRONMENT?YES OCCUPATION: DISABLED. DIET: LOW FAT. EXERCISE: WALKS, DAILY, MOST DAYS. MARITAL STATUS: . TODAY'S VISITNOTES 11/10/19 PATIENT DESCRIBES PAIN :ACHING, BURNING, HAVE IT ALL THE TIME, TENDER, THROBBING, SORE, OTHER PRESSURE LEFT LOWER RIB IN THE FRONT FROM 0-10, WHAT LEVEL IS YOUR PAIN TODAY?6 PRECIPITATING FACTORS JUST THERE CONSTANTLY, YEST. BACK PAIN INCREASED AFTER PICKING UP A SOCK ALLEVIATING FACTORS POSITIONING IMPACT ON FUNCTION LIMITS HIM ON WHAT HE IS ABLE TO DO - PFS REFERRAL NEEDED?NO CLERGY REFERRAL NEEDED?NO PUBLIC HEALTH REFERRAL NEEDED?NO HAS THE PATIENT BEEN EDUCATED REGARDING HIS/HER PLAN OF CARE?YES HAS THE PATIENT BEEN EDUCATED REGARDING PAIN, THE RISK FOR PAIN, THE IMPORTANCE OF EFFECTIVE PAIN MANAGEMENT, AND THE PAIN ASSESSMENT PROCESS?YES ADVANCE DIRECTIVE ADVANCE DIRECTIVE DISCUSSED WITH PATIENT:YES 11/10/19 PT. STATES HE HAS HCP- ROXANNE [phone] REVIEWED 04/29/18 1009 LAS06/09/18 0905 REVIEWED WITH PT. ADREVIEWED WITH PATIENT 11/12/18 1034 JSREVIEWED WITH PT 02/11/19 0855 BVREVIEWED WITH PATIENT 05/13/19 0853 JSREVIEWED WITH PATIENT 08/12/2019 DS. REVIEW OF SYSTEMS CONSTITUTIONAL: ANY RECENT FEVER NO . CHILLS NO . WEIGHT CHANGE OF UNKNOWN REASONS NO . GASTROENTEROLOGY: NEW UNEXPLAINABLE CHANGES IN BOWEL CONTROL NO . CONSTIPATION NO . GENITOURINARY: ANY NEW CHANGE IN BLADDER CONTROL? NO . NEUROLOGY: NEW ONSET DIZZINESS OR NEUROLOGICAL CHANGES NOT MENTIONED NO . NEW NUMBNESS OR PAIN PATTERNS NOT MENTIONED AND PERTINENT TO TODAY'S VISIT NO . CARDIOLOGY: NEW CHEST PRESSURE NO . PATIENT DENIES NO . RESPIRATORY: UNEXPLAINABLE COUGH NO . NEW SHORTNESS OF BREATH NO . VITAL SIGNS WT 339.6 LBS, HT 68 IN, BMI 51.63 INDEX, BP 143/71 MM HG, HR 68 /MIN, RR 18 /MIN, TEMP 97.7 F, OXYGEN SAT % 93%, SAFE IN ENV? (Y/N) YES, NA INITIALS AW 0943, REVIEWED BY: SOPHIE OGLESBY MA. EXAMINATION GENERAL EXAMINATION: GENERALNO ACUTE DISTRESS, WELL NOURISHED AND HYDRATED. PSYCHAPPROPRIATE MOOD AND AFFECT . LUNGS:CLEAR TO AUSCULTATION BILATERALLY, NO WHEEZES, RHONCHI, RALES. HEART:NO MURMURS, REGULAR RATE AND RHYTHM. ASSESSMENTS INTERVERTEBRAL DISC DISORDER WITH RADICULOPATHY OF LUMBOSACRAL REGION - M51.17 (PRIMARY), RISK: (NULL) CHRONIC PRESCRIPTION OPIATE USE - Z79.899 TREATMENT INTERVERTEBRAL DISC DISORDER WITH RADICULOPATHY OF LUMBOSACRAL REGION CONTINUE TRAMADOL HCL TABLET, 50 MG, 1 TABLET NEEDED, ORALLY, MAKE TAKE 1-2 Q 6 HRS PRN PAIN MDD=5, 30 DAY(S), 140, REFILLS 0 NOTES: 54-YEAR-OLD MALE IN FOR CHRONIC PAIN FOLLOW-UP. GIVEN PRESENTING SYMPTOMS RECOMMENDED CONTINUATION OF CURRENT MEDICATION REGIMEN WITH FOLLOW-UP IN 3 MONTHS. PATIENT HAS EXPRESSED UNDERSTANDING OF AND WAS IN AGREEMENT WITH TREATMENT PLAN. GIVEN TIME TO ASK QUESTIONS AND EXPRESS CONCERNS. , ISTOP REGISTRY REVIEWED AND DEMONSTRATES COMPLLIANCE. (REF # [id number] ) BRINGS IN MEDICATIONS WHICH IS APPROPRIATE FOR WHAT WAS DISPENSED. RECENT URINE TOXICOLOGY REVIEWED. NO UNAUTHORIZED MEDICATIONS. NO ILLICIT SUBSTANCES AND PRESCRIBED MEDICATIONS WERE PRESENT. CHRONIC PRESCRIPTION OPIATE USE LAB: URINE TEST [facility] JOAN OGLESBY 10/19/2020 10:42:14 AM > LAST DOSE: TRAMADOL 10/19/2020 PROCEDURES PN WORKMANS' COMP OPINION IN YOUR OPINION, WAS THE INCIDENT THAT THE PATIENT DESCRIBED THE COMPETENT MEDICAL CAUSE OF THIS INJURY/ILLNESS? YES ARE THE PATIENT'S COMPLAINTS CONSISTENT WITH HIS/HER HISTORY OF THE INJURY/ILLNESS? YES IS THE PATIENT'S HISTORY OF THE INJURY/ILLNESS CONSISTENT WITH YOUR OBJECTIVE FINDING? YES WHAT IS THE PERCENTAGE OF TEMPORARY IMPAIRMENT? MARKED = 75% IS THE PATIENT WORKING? NO DOCTOR ON SITE: NATHAN EASLEY MD PROCEDURE CODES FA211 ESTABILISHED PATIENT [facility] CHARGE DISPOSITION & COMMUNICATION FOLLOW UP 3 MONTHS (REASON: LOW BACK PAIN ) ELECTRONICALLY SIGNED BY SHANTA JASSO ON 10/22/2020 AT 08:36 AM EDT DISCLAIMER : THIS IS A VISIT SUMMARY EXTRACTED FROM THE [employer] CHART. IT IS NOT A COPY OF THE [employer] PROGRESS NOTE. LISA
== END ==
LOC: M PAIN 09:30
PROVIDERS: ATTEND Family Medicine
DX: M51.17 Intervertebral disc disorders with radiculopathy, lumbosacral region (principal); G89.29 Other chronic pain; G47.30 Sleep apnea, unspecified; Z88.0 Allergy status to penicillin; Z88.6 Allergy status to analgesic agent; Z88.8 Allergy status to other drugs, medicaments and biological substances; Z91.030 Bee allergy status; E66.01 Morbid (severe) obesity due to excess calories; Z68.43 Body mass index [BMI] 50.0-59.9, adult; Z79.899 Other long term (current) drug therapy

== ENCOUNTER → 2021-01-25 | Outpatient (CLI) | payer OTHER ==
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
== END ==
LOC: M PAIN 09:00
PROVIDERS: ATTEND Family Medicine
DX: M51.17 Intervertebral disc disorders with radiculopathy, lumbosacral region (principal); G89.29 Other chronic pain; G47.30 Sleep apnea, unspecified; Z88.0 Allergy status to penicillin; Z88.6 Allergy status to analgesic agent; Z88.8 Allergy status to other drugs, medicaments and biological substances; Z91.030 Bee allergy status; E66.01 Morbid (severe) obesity due to excess calories; Z68.43 Body mass index [BMI] 50.0-59.9, adult; Z79.899 Other long term (current) drug therapy

== ENCOUNTER → 2021-04-26 | Outpatient (CLI) | payer OTHER | LOC: M PAIN 08:45 | PROVIDERS: ATTEND Anesthesiology | DX: M79.18 Myalgia, other site (principal); M54.50 Low back pain, unspecified; M54.2 Cervicalgia; G47.30 Sleep apnea, unspecified; Z88.0 Allergy status to penicillin; Z88.1 Allergy status to other antibiotic agents; Z88.6 Allergy status to analgesic agent; Z88.8 Allergy status to other drugs, medicaments and biological substances; Z91.030 Bee allergy status; E66.01 Morbid (severe) obesity due to excess calories; Z68.42 Body mass index [BMI] 45.0-49.9, adult; Z79.899 Other long term (current) drug therapy ==

== ENCOUNTER → 2021-08-26 | Outpatient (CLI) | payer OTHER | LOC: M PAIN 11:30 | PROVIDERS: ATTEND Nurse Practitioner Family | DX: M79.10 Myalgia, unspecified site (principal); M54.50 Low back pain, unspecified; G47.30 Sleep apnea, unspecified; Z88.0 Allergy status to penicillin; Z88.6 Allergy status to analgesic agent; Z88.8 Allergy status to other drugs, medicaments and biological substances; Z91.030 Bee allergy status; E66.01 Morbid (severe) obesity due to excess calories; Z68.43 Body mass index [BMI] 50.0-59.9, adult; Z79.899 Other long term (current) drug therapy ==

== ENCOUNTER → 2021-11-20 | Outpatient (CLI) | payer OTHER | LOC: M PAIN 08:45 | PROVIDERS: ATTEND Nurse Practitioner Family | DX: M51.16 Intervertebral disc disorders with radiculopathy, lumbar region (principal); M79.10 Myalgia, unspecified site; M54.50 Low back pain, unspecified; G47.30 Sleep apnea, unspecified; Z88.0 Allergy status to penicillin; Z88.6 Allergy status to analgesic agent; Z88.8 Allergy status to other drugs, medicaments and biological substances; Z91.030 Bee allergy status; E66.01 Morbid (severe) obesity due to excess calories; Z68.43 Body mass index [BMI] 50.0-59.9, adult; Z79.899 Other long term (current) drug therapy ==

== ENCOUNTER → 2022-03-25 | Outpatient (CLI) | payer OTHER | LOC: M PAIN 11:30 | PROVIDERS: ATTEND Nurse Practitioner Family | DX: M47.816 Spondylosis without myelopathy or radiculopathy, lumbar region (principal); M47.817 Spondylosis without myelopathy or radiculopathy, lumbosacral region; G89.29 Other chronic pain; I10 Essential (primary) hypertension; G47.30 Sleep apnea, unspecified; Z88.0 Allergy status to penicillin; Z88.6 Allergy status to analgesic agent; Z88.8 Allergy status to other drugs, medicaments and biological substances; Z91.030 Bee allergy status; E66.01 Morbid (severe) obesity due to excess calories; Z68.43 Body mass index [BMI] 50.0-59.9, adult; Z79.899 Other long term (current) drug therapy ==

== ENCOUNTER → 2022-08-15 | Outpatient (CLI) | payer OTHER | LOC: M PAIN 09:00 | PROVIDERS: ATTEND Nurse Practitioner Family | DX: M47.816 Spondylosis without myelopathy or radiculopathy, lumbar region (principal); G89.29 Other chronic pain; I10 Essential (primary) hypertension; G47.30 Sleep apnea, unspecified; Z88.0 Allergy status to penicillin; Z88.6 Allergy status to analgesic agent; Z88.8 Allergy status to other drugs, medicaments and biological substances; Z91.030 Bee allergy status; E66.01 Morbid (severe) obesity due to excess calories; Z68.43 Body mass index [BMI] 50.0-59.9, adult; Z79.899 Other long term (current) drug therapy ==

== ENCOUNTER → 2022-09-22 | Outpatient (CLI) | payer OTHER | LOC: M LABSMTC 12:18 | PROVIDERS: ATTEND Anesthesiology | DX: Z01.812 Encounter for preprocedural laboratory examination (principal) ==

== ENCOUNTER → 2022-09-25 | Outpatient (CLI) | payer OTHER ==
[~2022-09-25] MED LIST changes: +BUPIVACAINE HCL 0.25% 30ML VIAL As Ordered ONE; +ISOVUE-M 300 61% 15ML VIAL As Ordered ONE; +LIDOCAINE 1% SDV 30ML VIAL As Ordered ONE
== END ==
LOC: M PAIN 10:30
PROVIDERS: ATTEND Anesthesiology
DX: M47.816 Spondylosis without myelopathy or radiculopathy, lumbar region (principal); G89.29 Other chronic pain; G47.30 Sleep apnea, unspecified; I10 Essential (primary) hypertension; Z88.0 Allergy status to penicillin; Z88.6 Allergy status to analgesic agent; Z88.8 Allergy status to other drugs, medicaments and biological substances; Z91.030 Bee allergy status; E66.01 Morbid (severe) obesity due to excess calories; Z68.43 Body mass index [BMI] 50.0-59.9, adult; Z79.899 Other long term (current) drug therapy
CPT/HCPCS: 64493; 64494; Q9967; S0020

== ENCOUNTER → 2022-10-22 | Outpatient (CLI) | payer OTHER ==
[~2022-10-22] MED LIST changes: -BUPIVACAINE HCL 0.25% 30ML VIAL As Ordered ONE; -ISOVUE-M 300 61% 15ML VIAL As Ordered ONE; -LIDOCAINE 1% SDV 30ML VIAL As Ordered ONE
== END ==
LOC: M PAIN 13:15
PROVIDERS: ATTEND Anesthesiology
DX: G89.29 Other chronic pain (principal); M47.816 Spondylosis without myelopathy or radiculopathy, lumbar region; G47.30 Sleep apnea, unspecified; I10 Essential (primary) hypertension; Z88.0 Allergy status to penicillin; Z88.6 Allergy status to analgesic agent; Z88.8 Allergy status to other drugs, medicaments and biological substances; Z91.030 Bee allergy status; Z79.899 Other long term (current) drug therapy

== ENCOUNTER → 2022-12-02 | Outpatient (CLI) | payer OTHER | LOC: M PAIN 09:15 | PROVIDERS: ATTEND Nurse Practitioner Family | DX: M51.16 Intervertebral disc disorders with radiculopathy, lumbar region (principal); G89.29 Other chronic pain; I10 Essential (primary) hypertension; G47.30 Sleep apnea, unspecified; Z88.0 Allergy status to penicillin; Z88.6 Allergy status to analgesic agent; Z88.8 Allergy status to other drugs, medicaments and biological substances; Z91.030 Bee allergy status; E66.01 Morbid (severe) obesity due to excess calories; Z68.43 Body mass index [BMI] 50.0-59.9, adult; Z79.899 Other long term (current) drug therapy ==

== ENCOUNTER → 2023-02-19 | Outpatient (CLI) | payer OTHER | LOC: M PAIN 10:45 | PROVIDERS: ATTEND Nurse Practitioner Family | DX: M51.16 Intervertebral disc disorders with radiculopathy, lumbar region (principal); G89.29 Other chronic pain; I10 Essential (primary) hypertension; Z88.0 Allergy status to penicillin; Z88.6 Allergy status to analgesic agent; Z88.8 Allergy status to other drugs, medicaments and biological substances; Z91.030 Bee allergy status; E66.01 Morbid (severe) obesity due to excess calories; Z68.43 Body mass index [BMI] 50.0-59.9, adult; Z79.899 Other long term (current) drug therapy ==

== ENCOUNTER → 2023-05-21 | Outpatient (CLI) | payer OTHER | LOC: M PAIN 09:15 | PROVIDERS: ATTEND Nurse Practitioner Family | DX: M51.16 Intervertebral disc disorders with radiculopathy, lumbar region (principal); G89.29 Other chronic pain; Z86.16 Personal history of COVID-19; Z88.0 Allergy status to penicillin; Z88.6 Allergy status to analgesic agent; Z88.8 Allergy status to other drugs, medicaments and biological substances; Z91.030 Bee allergy status; E66.01 Morbid (severe) obesity due to excess calories; Z68.43 Body mass index [BMI] 50.0-59.9, adult; Z79.899 Other long term (current) drug therapy ==

== ENCOUNTER → 2023-08-21 | Outpatient (CLI) | payer OTHER | LOC: M PAIN 09:15 | PROVIDERS: ATTEND Nurse Practitioner Family | DX: M47.816 Spondylosis without myelopathy or radiculopathy, lumbar region (principal); M47.817 Spondylosis without myelopathy or radiculopathy, lumbosacral region; Z79.891 Long term (current) use of opiate analgesic; G89.29 Other chronic pain; I10 Essential (primary) hypertension; E78.00 Pure hypercholesterolemia, unspecified; K21.9 Gastro-esophageal reflux disease without esophagitis; G47.30 Sleep apnea, unspecified; M54.50 Low back pain, unspecified; Z79.899 Other long term (current) drug therapy; Z88.0 Allergy status to penicillin; Z88.8 Allergy status to other drugs, medicaments and biological substances; Z88.6 Allergy status to analgesic agent; Z91.030 Bee allergy status ==

== ENCOUNTER → 2023-12-18 | Outpatient (CLI) | payer OTHER ==
[~2023-12-18] MED LIST changes: +ONDA-282 PO; -ONDA4TAB6 PO
== END ==
LOC: M PAIN 14:45
PROVIDERS: ATTEND Nurse Practitioner Family
DX: M47.816 Spondylosis without myelopathy or radiculopathy, lumbar region (principal); M47.817 Spondylosis without myelopathy or radiculopathy, lumbosacral region; Z79.891 Long term (current) use of opiate analgesic; Z79.899 Other long term (current) drug therapy; Z88.0 Allergy status to penicillin; Z88.1 Allergy status to other antibiotic agents; Z88.6 Allergy status to analgesic agent; Z88.8 Allergy status to other drugs, medicaments and biological substances; Z91.030 Bee allergy status

== ENCOUNTER → 2024-01-29 | Outpatient (CLI) | payer OTHER ==
[~2024-01-29] MED LIST changes: +ISOVUE-M 300 61% 15ML VIAL As Ordered ONE; +LIDOCAINE 1% SDV 30ML VIAL As Ordered ONE; +TRIAMCINOLONE ACETONIDE SUSP 40MG/ML 1ML VIAL As Ordered ONE; +diazePAM 5MG TABLET As Ordered ONE; +oxyCODONE 5MG TAB As Ordered ONE
== END ==
LOC: M PAIN 10:00
PROVIDERS: ATTEND Anesthesiology
DX: M47.816 Spondylosis without myelopathy or radiculopathy, lumbar region (principal); G47.30 Sleep apnea, unspecified; Z99.89 Dependence on other enabling machines and devices; I10 Essential (primary) hypertension; K76.0 Fatty (change of) liver, not elsewhere classified; Z79.02 Long term (current) use of antithrombotics/antiplatelets; Z79.1 Long term (current) use of non-steroidal anti-inflammatories (NSAID); Z79.899 Other long term (current) drug therapy; Z88.0 Allergy status to penicillin; Z88.8 Allergy status to other drugs, medicaments and biological substances; Z91.030 Bee allergy status
CPT/HCPCS: 64493; 64494; J0665; J3301; Q9967

== ENCOUNTER → 2024-03-28 | Outpatient (CLI) | payer OTHER ==
[~2024-03-28] MED LIST changes: -ISOVUE-M 300 61% 15ML VIAL As Ordered ONE; -LIDOCAINE 1% SDV 30ML VIAL As Ordered ONE; -TRIAMCINOLONE ACETONIDE SUSP 40MG/ML 1ML VIAL As Ordered ONE; -diazePAM 5MG TABLET As Ordered ONE; -oxyCODONE 5MG TAB As Ordered ONE
== END ==
LOC: M PAIN 15:30
PROVIDERS: ATTEND Nurse Practitioner Family
DX: M47.816 Spondylosis without myelopathy or radiculopathy, lumbar region (principal); Z79.891 Long term (current) use of opiate analgesic; G89.29 Other chronic pain; I10 Essential (primary) hypertension; E78.00 Pure hypercholesterolemia, unspecified; K21.9 Gastro-esophageal reflux disease without esophagitis; G47.30 Sleep apnea, unspecified; Z79.899 Other long term (current) drug therapy; Z88.0 Allergy status to penicillin; Z88.8 Allergy status to other drugs, medicaments and biological substances; Z91.030 Bee allergy status; Z88.6 Allergy status to analgesic agent

== ENCOUNTER → 2024-08-19 | Outpatient (CLI) | payer OTHER | LOC: M PAIN 10:00 | PROVIDERS: ATTEND Nurse Practitioner Family | DX: M47.816 Spondylosis without myelopathy or radiculopathy, lumbar region (principal); M51.17 Intervertebral disc disorders with radiculopathy, lumbosacral region; G89.29 Other chronic pain; I10 Essential (primary) hypertension; E78.00 Pure hypercholesterolemia, unspecified; M54.2 Cervicalgia; Z79.891 Long term (current) use of opiate analgesic; Z79.899 Other long term (current) drug therapy; Z88.0 Allergy status to penicillin; Z88.6 Allergy status to analgesic agent; Z88.8 Allergy status to other drugs, medicaments and biological substances; Z91.030 Bee allergy status ==